=== PATIENT | female | born 1970 | race Caucasian/White ===

== ENCOUNTER 2016-03-01 18:28 | Emergency (ER) | payer BC ==
[2016-03-01 19:11] VITALS: BP 193/90
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
== END 2016-03-01 20:24 | disposition home or self-care (01) ==
LOC: ED 18:28
DX: S40.019A Contusion of unspecified shoulder, initial encounter (principal); S09.90XA Unspecified injury of head, initial encounter; V49.9XXA Car occupant (driver) (passenger) injured in unspecified traffic accident, initial encounter; Y93.9 Activity, unspecified; Y92.9 Unspecified place or not applicable; Y99.9 Unspecified external cause status
CPT/HCPCS: 99282

== ENCOUNTER 2016-04-01 17:55 | Emergency (ER) | payer BC ==
[2016-04-01 18:23] VITALS: BP 197/95
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
== END 2016-04-01 19:29 | disposition home or self-care (01) ==
LOC: ED 17:55
DX: S50.12XA Contusion of left forearm, initial encounter (principal); W18.09XA Striking against other object with subsequent fall, initial encounter; Y92.9 Unspecified place or not applicable; E11.9 Type 2 diabetes mellitus without complications; D64.9 Anemia, unspecified
CPT/HCPCS: 99282

== ENCOUNTER 2016-06-26 18:29 | Emergency (ER) | payer BC ==
[2016-06-26] MEDS ORDERED: NS 0.9% 1000 ML* 1,000 ML IV ONE (22:11)
[2016-06-26 22:20] LABS: Hematocrit 35 % (35-47); Hemoglobin 12.1 g/dl (12.0-16.0); Mean Corpuscular HGB Conc 34 g/dl (31-36); Mean Corpuscular Hemoglobin 30 pg (27-31); Mean Corpuscular Volume 87 fL (80-97); Mean Platelet Volume 9 um3 (7.4-10.4); Red Blood Count 4.06 10^6/ul (4.0-5.4); Red Cell Distribution Width 13 % (10.5-15); White Blood Count 10.2 10^3/ul (3.5-10.8)
[2016-06-26 22:34] LABS: ALT 13 U/L (7-52); AST 15 U/L (13-39); Albumin 4.2 g/dL (3.2-5.2); Alkaline Phosphatase 70 U/L (34-104); Anion Gap 8 mmol/L (2-11); BUN/Creatinine Ratio 17.9 (8-20); Blood Urea Nitrogen 12 mg/dL (6-24); CO2 Carbon Dioxide 27 mmol/L (22-32); Calcium 9.2 mg/dL (8.6-10.3); Chloride 101 mmol/L (101-111); EGFR African American 121.9 (>60); EGFR Non-African American 94.8 (>60); Glucose 118 mg/dL (70-100); Lipase 48 U/L (11.0-82.0); Potassium 3.8 mmol/L (3.5-5.0); Sodium 136 mmol/L (133-145); Total Protein 7.2 g/dL (6.4-8.9)
[2016-06-26] MEDS ORDERED: Iodixanol* (CONTRAST) 320 MG/ML 100 ML SDV IV ONE (23:40)
[2016-06-27] MEDS ORDERED: Morphine INJ* 4 MG/ML 1 ML SYRINGE IV ONE (00:51)
[2016-06-27] MEDS ORDERED: Ondansetron INJ* 2 MG/ML VIAL IV ONE (00:51)
[2016-06-27 01:09] LABS: Urine Bacteria 1+ (Absent); Urine Bilirubin Negative (Negative); Urine Glucose Negative (Negative); Urine Nitrite Negative (Negative)
[2016-06-27] MEDS ORDERED: Iodixanol 320 (CONTRAST) 100 ML SDV IV ONE (01:48)
--- NOTE | 2016-06-27 04:01 | ED ---
Jakub House Rebecca, scribed for Thierry Lemon on 06/26/16 at 2201 . Abdominal Pain/Female - HPI Summary HPI Summary: Pt is a 45 y/o F who presents to ED c/o RUQ pain. Pain began suddenly at 1630 and has been constant since onset, wavering in intensity. Pain characterized as sharp and currently ranked 7/10. Discrete to the RUQ without radiation. Sx aggravated and alleviated by nothing. Additoinally c/o N/D and mild dizziness. Denies vomiting, fever, CP, SOB. PSHx cholecystectomy in October (8 months ago ). No PSHx appy. No PMHx kidney stones. - History of Current Complaint Chief Complaint: EDAbdPain Stated Complaint: ABD AND RIB PAIN, NAUSEA Time Seen by Provider: 06/26/16 21:54 Hx Obtained From: Patient Hx Last Menstrual Period: 09/21/15 Onset/Duration: Sudden Onset, Still Present Timing: Constant Severity Initially: Moderate Severity Currently: Moderate Pain Intensity: 7 Pain Scale Used: 0-10 Numeric Location: Discrete At: RUQ Radiates: No Character: Sharp Aggravating Factor(s): Nothing Alleviating Factor(s): Nothing Associated Signs and Symptoms: Positive: Dizzy - mild, Nausea, Diarrhea, Other: - Denies SOB. Negative: Fever, Chest Pain, Vomiting Allergies/Adverse Reactions: Allergies Allergy/AdvReac Type Severity Reaction Status Date / Time Shellfish Allergy Allergy Severe Anaphylatic Verified 01/10/16 22:35 Shock PMH/Surg Hx/FS Hx/Imm Hx Endocrine/Hematology History: Reports: Hx Diabetes - DIET CONTROL, Hx Anemia - TAKES IRON Denies: Hx Thyroid Disease Cardiovascular History: Reports: Hx Hypertension - WELL CONTROLLED Denies: Hx Congestive Heart Failure, Hx Pacemaker/ICD, Other Cardiovascular Problems/Disorders Respiratory History: Denies: Hx Asthma, Hx Chronic Obstructive Pulmonary Disease (COPD), Other Respiratory Problems/Disorders GI History: Reports: Other GI Disorders - 2009-FLOATING INTERNAL HERNIA STATES WAS FIXED Denies: Hx Ulcer History: Denies: Hx Renal Disease, Other Problems/Disorders Musculoskeletal History: Reports: Hx Arthritis - LEFT SHOULDER Denies: Other Musculoskeletal History Sensory History: Reports: Hx Contacts or Glasses - WILL WEAR GLASSES DAY OF SURGERY Denies: Hx Hearing Aid Opthamlomology History: Reports: Hx Contacts or Glasses - WILL WEAR GLASSES DAY OF SURGERY Neurological History: Reports: Hx Migraine - IN THE PAST Denies: Other Neuro Impairments/Disorders Psychiatric History: Reports: Hx Anxiety - ON MEDS Denies: Hx Panic Disorder - Cancer History Hx Chemotherapy: No - Surgical History Surgery Procedure, Year, and Place: Right Index Finger 09/07/13,. 06/03 R HAND, 5TH DIGIT,. 02/01 LEFT SHOULDER BONE SPUR ,. 12/20/09 [facility],. 12/30 GASTRIC BYPASS,. 11/30 R HAND SURGERY,. 10/01 LEFT SHOULDER BONE SPUR,. 11/22 & 11-24 GANGLION CYSTS,. 2012 LEFT HAND CARPAL TUNNEL SURGERY. 10/2012, LEFT SHOULDER, [facility]. LEFT 5th finger trigger release 08/2014 Hx Anesthesia Reactions: No - Immunization History Date of Tetanus Vaccine: UTD Date of Influenza Vaccine: 2013 Infectious Disease History: Denies: Hx Clostridium Difficile, Hx Hepatitis, Hx Human Immunodeficiency Virus (HIV), Hx of Known/Suspected MRSA, Hx Shingles, Hx Tuberculosis, Hx Known/ Suspected VRE, Hx Known/Suspected VRSA, History Other Infectious Disease, Traveled Outside the [place] in Last 30 Days - Family History Known Family History: Positive: Hypertension, Diabetes, Other - ARTHRITIS; OBESITY - Social History Alcohol Use: Rare Alcohol Amount: 2-3 TIMES A YEAR Hx Substance Use: No Substance Use Type: Reports: None Hx Tobacco Use: No Smoking Status (MU): Never Smoked Tobacco Have You Smoked in the Last Year: No Review of Systems Negative: Fever Negative: Chest Pain Negative: Shortness Of Breath Positive: Abdominal Pain - RUQ, Diarrhea, Nausea. Negative: Vomiting Neurological: Other - mild dizziness All Other Systems Reviewed And Are Negative: Yes Physical Exam Triage Information Reviewed: Yes Vital Signs On Initial Exam: Initial Vitals Temp Pulse Resp BP Pulse Ox 96.3 F 102 20 186/92 100 06/26/16 18:38 06/26/16 18:38 06/26/16 18:38 06/26/16 18:38 06/26/16 18:38 Vital Signs Reviewed: Yes Appearance: Positive: Well-Appearing, No Pain Distress Skin: Positive: Warm, Skin Color Reflects Adequate Perfusion, Dry Eyes: Positive: EOMI, MIHIR Neck: Positive: Supple, Nontender Respiratory/Lung Sounds: Positive: Clear to Auscultation, Breath Sounds Present Cardiovascular: Positive: RRR, Pulses are Symmetrical in both Upper and Lower Extremities Abdomen Description: Positive: Soft. Negative: Nontender - RLQ tenderness Bowel Sounds: Positive: Present Musculoskeletal: Positive: Normal, Strength/ROM Intact Neurological: Positive: Normal, Sensory/Motor Intact, Alert, Oriented to Person Place, Time Diagnostics - Vital Signs Vital Signs Temp Pulse Resp BP Pulse Ox 06/26/16 20:00 97 F 100 18 194/99 100 06/26/16 18:38 96.3 F 102 20 186/92 100 - Laboratory Result Diagrams: 06/26/16 22:05 06/26/16 22:05 Lab Statement: Any lab studies that have been ordered have been reviewed, and results considered in the medical decision making process. - CT CT Abd/Pel CT Interpretation: No Acute Changes - No acute findings. See report. CT Interpretation Completed By: Radiologist - EKG 2300 Cardiac Rate: NL - 90 bpm EKG Rhythm: Sinus Rhythm EKG Interpretation: No acute changes Re-Evaluation - Re-Evaluation First Eval Re-Evaluation Time: 03:39 Change: Improved Comment: Pt is feeling significantly improved. Abdominal Pain Fem Course/Dx - Diagnoses Provider Diagnoses: Nonspecific abdominal pain Discharge - Discharge Plan Condition: Stable Disposition: HOME Prescriptions: Ibuprofen TAB* [Motrin TAB* 600 MG] 600 mg PO Q8H PRN #20 tab PRN Reason: Pain Patient Education Materials: Abdominal Pain (ED) Referrals: [facility] [Outside] - 3 Days The documentation as recorded by the Jakub downey Rebecca accurately reflects the service I personally performed and the decisions made by , Thierry Lemon.
[2016-06-27 04:17] VITALS: BP 135/76
--- NOTE | 2016-06-27 12:51 | RAD ---
CLINICAL HISTORY: Nausea and abdominal pain. Relevant surgical history includes "hernia", gastric bypass surgery and cholecystectomy. COMPARISON: Most recent CT of the abdomen and pelvis acquired November 04, 2015 TECHNIQUE: Contrast enhanced CT examination of the abdomen and pelvis from the lung bases through the initial tuberosities. The patient received 136 mL Visipaque 320 intravenously prior to imaging.The patient received oral contrast as well prior to imaging. FINDINGS: VISUALIZED LUNG BASES: At the supra areolar right breast there is a 1.9 cm subcutaneous soft tissue nodule (image 3) that is somewhat asymmetric to the contralateral side. On the most recent CT examination this nodule exhibiting a maximum dimension of 1.3 cm. The visualized lung bases are grossly clear. There is no pleural effusion. ABDOMEN AND PELVIS: Surgical material related to gastric bypass surgery is noted. There is no evidence of obstruction or leakage. The liver is homogenously hypodense relative to the spleen. There are no focal liver masses, intrahepatic biliary duct dilatation or surface irregularity. The spleen, pancreas and adrenal glands are grossly normal in appearance. The gallbladder is surgically absent with surgical clips in the gallbladder fossa. The kidneys are normal in appearance without focal mass, calcification or signs of hydronephrosis. The oral contrast has progressed as far as the splenic flexure of the colon. The small and large bowel are not distended. The patient's normal appendix is identified in the right lower quadrant (image [id number]). There is no gross retroperitoneal or mesenteric lymphadenopathy. The right and left ovaries measure up to 4.4 and 4 cm respectively in greatest axial dimension. Both ovaries exhibit low attenuation structures with likely septations identified. Parents within the limitations of CT imaging. The abdominal aorta and iliac arteries are normal in course and diameter. Degenerative changes include multilevel loss of intervertebral disc height involving the lower thoracic and lumbar spine.There are no sinister bone lesions. IMPRESSION: 1. There are postsurgical findings consistent with gastric bypass surgery at the patient's gastrojejunostomy. There is no CT evidence of bowel obstruction, leakage or acute inflammatory change. 2. There is a 1.9 cm right breast soft tissue nodule that appears asymmetric relative to the contralateral side. This nodule appears slightly larger from 1.3 cm measured on the November 04, 2015 CT examination. According to previous imaging available on our PACS system, the patient's most recent annual screening mammogram is dated November 20, 2014. Please correlate to physical examination and/or possible follow-up breast imaging. 3. Bilaterally the ovaries appear partially cystic and mildly enlarged. This may not be abnormal in a woman still undergoing normal menstrual activity. If clinically warranted more detailed characterization of the ovaries can be made with pelvic ultrasound. 4. There are additional chronic, degenerative and iatrogenic findings described in the body of the report.
== END 2016-06-27 04:12 | disposition home or self-care (01) ==
LOC: ED 18:29
DX: R10.11 Right upper quadrant pain (principal); R42 Dizziness and giddiness; R11.0 Nausea; R19.7 Diarrhea, unspecified
CPT/HCPCS: 36415; 74177; 80053; 81003; 81015; 83605; 83690; 84484; 84702; 85025; 85610; 85730; 87086; 93005; 99282; J2270; J2405; Q9967

== ENCOUNTER 2016-07-29 13:16 | Emergency (ER) | payer BC ==
[2016-07-29 13:31] VITALS: BP 164/94
--- NOTE | 2016-07-29 13:31 | UC ---
Hand/Wrist HPI - HPI Summary HPI Summary: hit left hand with a hammer then fell and hit hand on a metal bar---bruising on back of left hand - History Of Current Complaint Chief Complaint: UCUpperExtremity Stated Complaint: HAND INJURY Time Seen by Provider: 07/29/16 13:25 Hx Obtained From: Patient Hx Last Menstrual Period: 09/21/15 ?: No Mechanism Of Injury: crush Onset/Duration: Sudden Onset, Resolved Severity Initially: Moderate Severity Currently: Moderate Pain Intensity: 5 Pain Scale Used: 0-10 Numeric Character Of Pain: Aching, Throbbing Aggravating Factor(s): Movement Alleviating: Rest Associated Signs And Symptoms: Positive: Swelling, Bruising Related History: Dominant Hand Right - Allergies/Home Medications Allergies/Adverse Reactions: Allergies Allergy/AdvReac Type Severity Reaction Status Date / Time Shellfish Allergy Allergy Severe Anaphylatic Verified 07/29/16 13:21 Shock Home Medications: Home Medications Dulaglutide [Trulicity] 0.75 mg SC WEEKLY 07/29/16 [History Confirmed 07/29/16] PMH/Surg Hx/FS Hx/Imm Hx Previously Healthy: Yes - Surgical History Surgical History: Yes Surgery Procedure, Year, and Place: Right Index Finger 09/07/13,. 06/03 R HAND, 5TH DIGIT,. 02/01 LEFT SHOULDER BONE SPUR ,. 12/20/09 HERNIA,. 12/30 GASTRIC BYPASS,. 11/30 R HAND SURGERY,. 10/01 LEFT SHOULDER BONE SPUR,. 11/22 & 10 GANGLION CYSTS,. 2012 LEFT HAND CARPAL TUNNEL SURGERY. 10/2012, LEFT SHOULDER, [facility]. LEFT 5th finger trigger release 08/2014 - Family History Known Family History: Positive: Hypertension, Diabetes, Other - ARTHRITIS; OBESITY - Social History Occupation: Employed Full-time Lives: With Family Alcohol Use: Rare Alcohol Amount: 2-3 TIMES A YEAR Substance Use Type: None Smoking Status (MU): Never Smoked Tobacco Have You Smoked in the Last Year: No Review of Systems Constitutional: Negative Skin: Bruising - back of left hand Eyes: Negative ENT: Negative Respiratory: Negative Cardiovascular: Negative Gastrointestinal: Negative Genitourinary: Negative Motor: Negative Neurovascular: Negative Musculoskeletal: Negative Neurological: Negative Psychological: Negative All Other Systems Reviewed And Are Negative: Yes Physical Exam Triage Information Reviewed: Yes Appearance: Well-Appearing, No Pain Distress, Well-Nourished Vital Signs Reviewed: Yes Eye Exam: Normal Eyes: Positive: Conjunctiva Clear ENT Exam: Normal ENT: Positive: Normal ENT inspection, Hearing grossly normal. Negative: Nasal congestion, Nasal drainage, Trismus, Muffled/hoarse voice Dental Exam: Normal Neck exam: Normal Neck: Positive: Supple, Nontender, No Lymphadenopathy Respiratory Exam: Normal Respiratory: Positive: Chest non-tender, Lungs clear, Normal breath sounds, No respiratory distress, No accessory muscle use Cardiovascular Exam: Normal Cardiovascular: Positive: RRR, No Murmur, Pulses Normal, Brisk Capillary Refill Musculoskeletal Exam: Normal Musculoskeletal: Positive: Strength Intact, ROM Intact, Edema @ - back of left hand Neurological Exam: Normal Neurological: Positive: Alert, Muscle Tone Normal Psychological Exam: Normal Psychological: Positive: Normal Response To Family Skin Exam: Normal Diagnostics - Radiology No standard instances Xray Interpretation: No Acute Changes Radiology Interpretation Completed By: ED Physician Re-Evaluation - Re-Evaluation Second Eval Change: Improved - dara apllied-n/m/c intact before and after application Hand/Wrist Course/Dx - Course Course Of Treatment: rice, dara, ibuprofen follow with ortho, follow BP with PCP - Differential Dx/Diagnosis Differential Diagnosis/HQI/PQRI: Cellulitis, Contusion, Fracture, Sprain, Strain Provider Diagnoses: Contusion Left hand, Highblood pressure withour dx of HTN Discharge - Discharge Plan Condition: Stable Disposition: HOME Patient Education Materials: Ibuprofen (By mouth), Contusion in Adults (ED), DASH Eating Plan (ED), Hypertension (ED), Ice Pack Application (ED) Referrals: Trudy Renner MD [Primary Care Provider] - 2 Weeks Sally Barkre MD [Medical Doctor] - 5 Days
--- NOTE | 2016-07-29 14:21 | RAD ---
INDICATION: Left hand injury. TECHNIQUE: 4 views of the left hand were obtained. FINDINGS: No fracture is seen. Joint spaces appear maintained. There is foreshortening of the ulna and ulna minus variance of approximately 9 mm. IMPRESSION: NO EVIDENCE FOR FRACTURE.
== END 2016-07-29 14:09 | disposition home or self-care (01) ==
LOC: UCEAST 13:16
DX: S60.222A Contusion of left hand, initial encounter (principal); W22.8XXA Striking against or struck by other objects, initial encounter; W18.00XA Striking against unspecified object with subsequent fall, initial encounter; Y93.89 Activity, other specified; Y92.9 Unspecified place or not applicable; R03.0 Elevated blood-pressure reading, without diagnosis of hypertension; Z98.84 Bariatric surgery status; Z91.013 Allergy to seafood
CPT/HCPCS: 99212; G0463

== ENCOUNTER 2016-10-05 07:35 | Day surgery (SDC) | payer BC ==
[~2016-10-05 07:35] MED LIST: Buffered Lidocaine 0.9% SYRIN* 5 ML/SYR SYRINGE INTRADERM ONE; Sodium Citrate/Citric Acid* 15 ML UDC PO ONE
[2016-10-05] MEDS ORDERED: Sodium Citrate/Citric Acid* 15 ML UDC ONE (08:07)
[2016-10-05] MEDS ORDERED: Bupivacaine 0.25% SDV* 30 ML ONE (08:25)
[2016-10-05] MEDS ORDERED: Propofol* 10 MG/ML 20 ML BTL IV PUSH ONE (08:39)
[2016-10-05] MEDS ORDERED: Lidocaine 2% PF * 5 ML VIAL ONE (08:39)
[2016-10-05] MEDS ORDERED: fentaNYL* 50 MCG/ML 2 ML VIAL (100 MCG VIAL) ONE (08:40)
[2016-10-05] MEDS ORDERED: Midazolam* 1 MG/ML 2 ML VIAL (2 MG) ONE (08:55)
[2016-10-05 10:09] VITALS: BP 140/78
--- NOTE | 2016-10-06 02:30 | OP ---
DATE OF OPERATION: 10/05/16 - [facility] DATE OF : 68 SURGEON: Gerald Vinson MD BAR TACKER: MATTI Veliz ANESTHESIOLOGIST: Dr. Odonnell. ANESTHESIA: Local MAC. PRE-OP DIAGNOSIS: Left palm mass. POST-OP DIAGNOSIS: Left palm Dupuytren's disease. OPERATIVE PROCEDURE: Excision of Dupuytren's disease, left palm. INDICATIONS: Gricelda is a female who developed quite a symptomatic nodule/ mass in the left palm over the ring finger A1 everton area. I thought it was probably Dupuytren's nodule, but it was a little less distinct and the other possibility is a volar retinacular cyst. It was quite symptomatic and she wanted to have it excised. 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 I talked to her about the risks and benefits and the expected procedure and she wished to proceed. COMPLICATIONS: None. FINDINGS: There was actually quite a bit of disorganized hypertrophic fascia extending from the mid palm down and attaching to the A1 everton area. DESCRIPTION OF PROCEDURE: Gricelda was seen in the preoperative holding area. The correct side, site, and procedure were identified. We came back to the operating room. The arm was prepped and draped in the usual fashion. Formal time-out was performed. I exsanguinated the arm with the Esmarch and the tourniquet was inflated to 250 mmHg. I infiltrated the operative area with 0.25% plain Marcaine prior to prepping and draping. I made a V-shaped incision over the mass and a full- thickness flap was raised. It became very apparent that this was quite a bit of disorganized collagen that has grown up and starting to attach itself to the underlying dermis. I used the [place] blade and released it from the dermis. The digital nerve on the ulnar aspect was encountered and retracted with a Ragnell retractor. The disorganized tissue came down involved to the vertical septa of Legueu and Juvara. This was followed down all the way to the metacarpal bone and it was released there. I then followed the diseased tissue along radially. The digital nerve was again identified and protected, followed it down, and it again involved the septum and so this was excised. I then traced it out distally and it was coming down and attaching down right to the A1 everton. It was released off this and then followed back proximally where it extended past the level of the incision and so I extended my skin incision and followed this back another couple of centimeters until all of the deeper diseased tissue was excised. I inspected my digital nerves and they were nicely intact. I ended up may be releasing the proximal 25% or 50% of the A1 everton, but the distal A1 everton was disease free and fine and so I left that intact. Once I was satisfied that I removed all of the diseased tissue, I went ahead and irrigated out the operative area. The skin was closed with 4-0 nylon suture. Wound was dressed with Xeroform, 4x4s, sterile Webril, and an Sher bandage. Tourniquet was deflated and the hand pinked up immediately. She was taken to the recovery room in stable condition. [id number]/[facility] #: [id number] MTDD
== END 2016-10-05 10:10 | disposition home or self-care (01) ==
LOC: OREAST 07:35
PROVIDERS: ATTEND Orthopaedic Surgery Hand Surgery
DX: M72.0 Palmar fascial fibromatosis [Dupuytren] (principal); I10 Essential (primary) hypertension; E11.9 Type 2 diabetes mellitus without complications
CPT/HCPCS: 88304; A9270-GY; J2250; J2704; J3010

== ENCOUNTER 2016-12-07 19:01 | Emergency (ER) | payer BC ==
[2016-12-07 19:13] VITALS: BP 153/130
== END 2016-12-07 21:52 | disposition left against medical advice (07) ==
LOC: ED 19:01
DX: K08.89 Other specified disorders of teeth and supporting structures (principal); Z53.21 Procedure and treatment not carried out due to patient leaving prior to being seen by health care provider

== ENCOUNTER 2017-05-10 06:28 | Day surgery (SDC) | payer BC ==
[~2017-05-10 06:28] MED LIST changes: +Famotidine IV* 10 MG/ML 2 ML (20 mg) IV ONE; +Scopolamine 1.5 mg* PATCH TRANSDERM ONE; -Sodium Citrate/Citric Acid* 15 ML UDC PO ONE
[2017-05-10] MEDS ORDERED: Scopolamine 1.5 mg* PATCH ONE (06:32)
[2017-05-10] MEDS ORDERED: Famotidine IV* 10 MG/ML 2 ML (20 mg) ONE (06:32)
[2017-05-10] MEDS ORDERED: ceFAZolin 2 GM (*##) 2 GM/100 ML BAG USE CEFA2SOL IVPB ONE (06:32)
[2017-05-10] MEDS ORDERED: Bupivacaine 0.25% SDV* 30 ML ONE (07:11)
[2017-05-10] MEDS ORDERED: Midazolam* 1 MG/ML 5 ML VIAL (5 MG) ONE (07:15)
[2017-05-10] MEDS ORDERED: fentaNYL* 50 MCG/ML 2 ML VIAL (100 MCG VIAL) ONE (07:15)
[2017-05-10] MEDS ORDERED: Lidocaine 1% INJ* 10 MG/ML 30 ML SDV ONE (07:25)
[2017-05-10] MEDS ORDERED: ROPIVACAINE 5 MG/ML 30 ML BTL (0.5%) ONE (07:25)
[2017-05-10] MEDS ORDERED: DiMENhydriNATE IV* 50 MG/ML VIAL ONE (07:51)
[2017-05-10] MEDS ORDERED: Dexamethasone IV* 4 MG/ML 1 ML (4 MG) ONE (07:51)
[2017-05-10] MEDS ORDERED: Propofol* 10 MG/ML 20 ML BTL IV PUSH ONE (07:51)
[2017-05-10] MEDS ORDERED: Ketorolac INJ* 30 MG/ML 1 ML VIAL ONE (07:51)
[2017-05-10] MEDS ORDERED: Lidocaine 2% PF * 5 ML VIAL ONE (07:51)
[2017-05-10] MEDS ORDERED: Ondansetron INJ* 2 MG/ML VIAL ONE (07:51)
[2017-05-10 09:33] VITALS: BP 119/98
[2017-05-10] MEDS ORDERED: DiMENhydriNATE IV* 50 MG/ML VIAL IV PUSH PRN (10:09)
[2017-05-10] MEDS ORDERED: oxyCODONE TAB* 5 MG TAB PO PRN (10:09)
[2017-05-10] MEDS ORDERED: Acetaminophen TAB* 325 MG PO PRN (10:09)
[2017-05-10] MEDS ORDERED: Naloxone* 0.4 MG/ML 1 ML VIAL IV PRN (10:09)
--- NOTE | 2017-05-11 10:07 | OP ---
CC: PCP, Dr. Renner * DATE OF OPERATION: 05/10/17 - [facility] DATE OF : 68 SURGEON: Diego Hill MD. LOAN AUDITOR: MATTI Saez. An res habilitation assistant was needed for the entirety of the case to help with positioning, retraction and was utilized throughout all portions of the case. ANESTHESIOLOGIST: Dr. William. ANESTHESIA: General interscalene block. PRE-OP DIAGNOSIS: Left shoulder impingement with biceps tendonitis. POST-OP DIAGNOSIS: Left shoulder partial thickness rotator cuff tear of the supraspinatus tendon with bursal and articular sided tearing, biceps tendonitis and tendinopathy as well as residual impingement. OPERATIVE PROCEDURE: Left shoulder arthroscopy with, 1. Extensive glenohumeral debridement including biceps tenotomy. 2. Revision to subacromial decompression with acromioplasty. 3. Rotator cuff repair of the supraspinatus in double row fashion. COMPLICATIONS: None. ESTIMATED BLOOD LOSS: Minimal. INDICATION: Gricelda Alvares is a 46-year-old female who has had multiple surgeries of her left shoulder. She had several impingement related surgeries and has had no relief with the symptoms. Risks and benefits of surgery were discussed at length and included, but not limited to bleeding, infection, damage to nerves, vessels, surrounding structures, wound nonhealing, persistent pain, need for further surgery, incomplete relief of symptoms, risks of anesthesia, persistent pain. She has elected to proceed with surgical treatment. DESCRIPTION OF PROCEDURE: The patient was greeted in the preoperative area by the attending surgeon. Correct extremity was marked and the consent was confirmed. She underwent interscalene nerve block by anesthesiologist after which she was brought back into the operating suite. She was placed in supine position on operating table. She then underwent general anesthesia and LMA intubation, after which she was appropriately positioned on the right lateral decubitus position and axillary roll. She was secured with a peg board, the shoulder was draped unsterile with 10-pounds traction. The left shoulder was then prepped and draped in usual sterile fashion beginning with chlorhexidine soap, scrub, and alcohol wipe and a final prep with ChloraPrep. After appropriate surgical pause indicating site, side, procedure and administration of antibiotics, the standard posterolateral portal was made sharply with an 11-blade. The scope was introduced into the joint. The joint was examined. The scope was brought into the joint. The joint was examined. There was evidence of synovitis present. The anteroposterior superior labrum had fraying. The anterior port was made in outside-in fashion. The shaver was used to debride back the anterior, posterior, superior labrum. There is evidence of biceps tearing at the insertion to the superior labrum and partial tearing of the subscap. The shaver was used to debride the anteroposterior superior labrum as well as the undersurface of the subscap. After preoperative discussion with the patient, the choice was made to do a tenotomy. The biceps was then tenotomized using the ria. The inferior recess was intact. There were grade 0 to 1 changes of the glenohumeral joint. The undersurface of the supraspinatus had partial thickness tearing and it appeared to be about 20%. The thought was that if she had no tearing on the bursal side, we would treat this conservatively. The scope was removed once the debridement was complete and attention was directed to subacromial space. The scope was positioned in subacromial space and the bursa was present. There was evidence of a previous bursectomy, but there was still irregular edges to the acromion. The shaver was used to debride back the bursa. There was evidence of partial tearing of the bursal side. This was addressed later. The undersurface of the acromion was then skeletonized with electrocautery device and a small revision acromioplasty was done using a 4-0 oval ulisses. Attention was directed to the rotator cuff. The cuff was probed and in one portion there was partial thickness tearing. This corresponded to the same area of the articular side of tearing. Decision was made to repair this. Therefore the 11-blade was used to take down the repair to complete the tear and then the shaver and electrocautery device were used to debride the edges of the tendon back. Once this was complete, attention was directed to the greater tuberosity, which was then skeletonized and debrided using the rasp and then ulisses to gently decorticate and allow for better healing. After this was done, through a separate stab incision a one 4.75 Healicoil was placed at the medial row. The sutures were passed through the tendon in a horizontal mattress configuration. They were then tied down and attached and passed through a second anchor for a lateral row fixation. The wounds were copiously irrigated with sterile saline. Final images were obtained. The rotator cuff was appropriately repaired. The wounds were copiously irrigated. The portals were closed with 3-0 nylon. Sterile dressing were applied, a Cryo/Cuff and UltraSling were applied. She was awoken from anesthesia and transferred to PACU in stable condition. POSTOPERATIVE PLAN: She will be nonweightbearing. She will be in the sling for 6 weeks. She will start physical therapy at 4 weeks. She will be discharged on pain medications, antibiotics due to her multiple surgeries. I will see the patient back in 2 weeks. DVT prophylaxis was considered, but deferred due to no previous personal or family history. [id number]/[facility] #: [id number] MTDD
== END 2017-05-10 09:57 | disposition home or self-care (01) ==
LOC: OREAST 06:28
PROVIDERS: ATTEND Orthopaedic Surgery
DX: M75.42 Impingement syndrome of left shoulder (principal); S46.102A Unspecified injury of muscle, fascia and tendon of long head of biceps, left arm, initial encounter; M25.512 Pain in left shoulder; M54.12 Radiculopathy, cervical region; M75.22 Bicipital tendinitis, left shoulder; I10 Essential (primary) hypertension; E11.9 Type 2 diabetes mellitus without complications; Z91.013 Allergy to seafood
CPT/HCPCS: 81025; A9270-GY; C1713; J1100; J1240; J1885; J2250; J2405; J2704; J2795; J3010

== ENCOUNTER 2017-05-29 09:35 | Emergency (ER) | payer BC ==
--- OUTSIDE RECORDS SUMMARY | 2017-05-29 09:41 | XMS REPORT ---
:1970 External Reference #:[id number] Author Organization [facility] [employer] Address [address] [address] Phone [phone] Care Team Providers Name Role Phone Trudy Renner MD Primary Care Physician Unavailable Payers Type Date Identification Numbers Payment Provider Subscriber Commercial Effective: Policy Number: HERNANDEZ Dean Catarino Holley 2012 [id number] PayID: [id number] [address] [address] [place] [address] Medigap Part B Effective: Policy Number: Meño Ye Catarino Holley 2010 [id number] Ppo Expires: 2012 PayID: [id number] [address] [address] [place] [address] Problems Date Description Provider Status Onset: 03/09/2017 Disorder of shoulder Diego Hill MD Active Onset: 03/09/2017 Shoulder joint pain Diego Hill MD Active Onset: 04/06/2017 Brachial neuritis Diego Hill MD Active Onset: 04/29/2017 Injury of shoulder region Diego Hill MD Active Family History Date Family Member(s) Problem(s) Comments General CAD father General hypertension father General skin cancer General Diabetes Social History Type Date Description Comments Lives With Alone 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 ETOH Use Rarely consumes alcohol Smoking denies smoking Smoking Patient has never smoked Exercise Type/Frequency Exercises regularly Allergies, Adverse Reactions, Alerts Date Description Reaction Status Severity Comments 09/26/2012 Shellfish-derived Products active 09/26/2012 Carver active Medications Medication Date Status Form Strength Qnty SIG Indications Ordering Provider Cephalexin 05/21 Active Tablets 500mg 20tabs take 1 by mouth four Yaseen, times a MD day x 5 days Acetaminophen-Co 05/12 Active Tablets 300-30mg 30tabs 1 - 2 tabs Diego buenoine # by mouth Yaseen, every 4-6 MD hours as needed pain Ondansetron 05/11 Active Tablets 8mg 30tabs take 1 Dispers every 8 Yaseen, hours as MD needed nausea Oxycodone-Acetam 05/10 Active Tablets 5-325mg 30tabs 1-2 tabs Diego ino by mouth Yaseen, every 4-6 MD hours as needed for pain Lisinopril Active Tablets 10mg 1 by mouth Unknown / every day Lexapro Active Tablets 10mg 1 by mouth Unknown every day Multivitamin Active Tablets Unknown Trulicity Active Solution 0.75mg/0. inject Unknown Pen-Injec 5ML 0.75mg t once a week Ibuprofen Active prn Unknown /0000 Cephalexin 05/10 Hx Tablets 500mg 12tabs take 1 by mouth four Yaseen, - times a MD 05/13 day x days Tramadol 10/05 Hx Tablets 37.5-325m 30tabs 1-2 tab by Gerald Arellano/ g mouth Vinson, etaminophen - every 4-6 MD 30 hours needed Carver 10/13 Hx Tablets 5-325mg 30tabs 1-2 by Gerald mouth Glen, - every 4 to M.D. 10/13 6 hours needed Keflex 10/13 Hx Capsules 500mg 40caps 1 tab by Sydney mouth four Fry-Yo - times a Rubén natarajan Carver 10/13 Hx Tablets 5-325mg 30tabs 1-2 by Brian mouth Shaunna, - every 6 M.D. 04/12 hours needed Zofran Odt 10/11 Hx Tablets 4mg 40tabs every 6 Sydney Dispers hours as Lisandra-Yo - needed Rubén natarajan 02/20 Acetaminophen-Co 09/19 Hx Tablets 300-30mg 20tabs 1 three Brian deine #3 times a Shaunna, - day as M.D. 02/20 needed for pain Percocet 09/11 Hx Tablets 5-325mg 40tabs 1-2 by Sydney mouth Fry-Yo - every 4 to rosa isela, M.D. 09/28 6 hours needed pain Augmentin 09/11 Hx Tablets 500-125mg 20tabs 1 by mouth Sydney twice a Fry-Yo - day rosa isela, M.D. 10/09 Carver 06/27 Hx Tablets 5-325mg 20tabs take 1 tab [place] by mouth Fry-Yo - 4-6 times rosa isela, M.D. 09/10 a day needed pain Tramadol HCL 04/25 Hx Tablets 50mg 30tabs 1 tab po q Neno hs Abdon, - M.D. 05/26 Cyclobenzaprine 02/21 Hx Tablets 10mg 42tabs 1 tab tid Neno HCL Abdon, - M.D. 02/22 Codeine/Acetamin 01/06 Hx Tablets 300-30mg 60tabs 1 to 2 tid Neno oph as needed Abdon, - for pain M.D. 09/19 Carver 11/09 Hx Tablets 5-325mg 60tabs take 1-2 tab po Abdon, - every 4-6 M.D. 11/09 hours needed for pain Carver 11/09 Hx Tablets 5-325mg 45tabs take 1 tab po tid prn Abdon, - pain M.D. 01/30 Percocet 11/03 Hx Tablets 5-325mg 60tabs take 1-2 Neno /2012 tabs po Abdon, - q4-6 hours M.D. 05/31 prn pain Voltaren 08/26 Hx Gel 1% Lrgtube apply 2 grams Abdon, - topically M.D. 01/30 times a day Tramadol HCL 08/08 Hx Tablets 50mg 90tabs 1 tab po Neno tid prn Abdon, - pain M.D. 01/30 Carver 04/28 Hx Tablets 5-325mg 30tabs take 1-2 tab po tid Lisandra-Taco - prn pain Rubén natarajan 01/30 Tramadol HCL 03/30 Hx Tablets 50mg 50tabs 1 po q 4 hr prn Chandrika Coppola.DRox 05/31 Lyrica 12/09 Hx Capsules 100mg 90caps 1 tab per day for 3 Young, - days, then M.D. 05/31 2 tabs day for 3 days, then 3 tabs per day Carisoprodol 12/02 Hx Tablets 250mg 15tabs 1 tab by mouth Abdon, - three M.DRox 01/30 times a day prn pain Flexeril 11/23 Hx Tablets 5mg 60tabs 1 tab po bid prn Abdon - muscle M.DRox 12/02 spasm Carver 11/22 Hx Tablets 5-325mg 40tabs 1-2 po q4h prn pain Lisandra-Taco - Rubén natarajan 01/30 Percocet 06/23 Hx Tablets 5-325mg 30tabs 1-2 po q 4-6 hr prn Abdon - pain AyseDRox 01/30 Zofran Odt 06/12 Hx Tablets 4mg 28tabs take 1 tab Dispers po q6 Lisandra-Yo - hours prn Rubén natarajan 01/30 nausea Cephalexin Hx Tablets 500mg 21tabs one three Unknown /0000 times - daily for 10/09 Sulfamethoxazole Hx Unknown -Trimethoprim /0000 - 10/09 Medications Administered in Office Medication Date Status Form Strength Qnty SIG Indications Ordering Provider Triamcinolone 03/09/ Administered Injection Zaneb (Kenalog) 2017 MD Liz Celestone 3 mg 05/31/ Administered Injection Sydney and 3mg 2013 Molly rivas M.D. Depomedrol 80MG 08/26/ Administered Injection Neno 2012 Rubén Coppola Celestone 3 mg 06/06/ Administered Injection Sydney and 3mg 2012 Molly rivas M.D. Celestone 3 mg 06/06/ Administered Injection [place] and 3mg 2012 Molly rivas M.D. Depomedrol 80MG 12/02/ Administered Injection Neno 2011 Rubén Coppola Vital Signs Date Vital Result Comment 05/21/2017 Height 68 inches 5'8" Weight 233.00 lb BP Systolic 134 mmHg BP Diastolic 78 mmHg Respiratory Rate 18 /min Body Temperature 97.9 F Pain Level 3 BMI (Body Mass Index) 35.4 kg/m2 05/20/2017 Height 68 inches 5'8" Weight 233.00 lb Heart Rate 80 /min BP Systolic Sitting 124 mmHg BP Diastolic Sitting 86 mmHg Respiratory Rate 16 /min Pain Level 2 BMI (Body Mass Index) 35.4 kg/m2 04/29/2017 Height 68 inches 5'8" Weight 233.00 lb BP Systolic 128 mmHg BP Diastolic 82 mmHg Respiratory Rate 18 /min Pain Level 9 BMI (Body Mass Index) 35.4 kg/m2 04/06/2017 Height 68 inches 5'8" Heart Rate 69 /min BP Systolic 140 mmHg BP Diastolic 78 mmHg Respiratory Rate 20 /min Body Temperature 98.0 F Pain Level 7 03/09/2017 Height 68 inches 5'8" Weight 233.00 lb w/ shoes Heart Rate 80 /min reg Respiratory Rate 16 /min Pain Level 9 left shoulder BMI (Body Mass Index) 35.4 kg/m2 10/16/2016 Height 68 inches 5'8" Weight 230.00 lb Heart Rate 99 /min Respiratory Rate 17 /min Body Temperature 98.1 F Pain Level 1 BMI (Body Mass Index) 35.0 kg/m2 09/30/2016 Height 68 inches 5'8" Weight 230.00 lb Respiratory Rate 18 /min Pain Level 8 BMI (Body Mass Index) 35.0 kg/m2 04/19/2015 Height 68 inches 5'8" Weight 230.00 lb Body Temperature 98.4 F BMI (Body Mass Index) 35.0 kg/m2 04/15/2015 Height 68 inches 5'8" Weight 230.00 lb Body Temperature 98.5 F Pain Level 2 BMI (Body Mass Index) 35.0 kg/m2 04/03/2015 Height 68 inches 5'8" Weight 230.00 lb Heart Rate 68 /min BP Systolic Sitting 142 mmHg BP Diastolic Sitting 92 mmHg Respiratory Rate 16 /min Pain Level 8 BMI (Body Mass Index) 35.0 kg/m2 06/21/2014 Height 68 inches 5'8" Weight 230.00 lb Heart Rate 89 /min BP Systolic 126 mmHg BP Diastolic 91 mmHg Pain Level 8 BMI (Body Mass Index) 35.0 kg/m2 11/15/2013 Height 68 inches 5'8" Weight 225.00 lb Pain Level 6 BMI (Body Mass Index) 34.2 kg/m2 10/30/2013 Height 68 inches 5'8" Weight 225.00 lb Pain Level 8 BMI (Body Mass Index) 34.2 kg/m2 10/13/2013 Height 68 inches 5'8" Weight 225.00 lb Body Temperature 98.7 F BMI (Body Mass Index) 34.2 kg/m2 10/10/2013 Height 68 inches 5'8" Weight 230.00 lb Body Temperature 98.7 F BMI (Body Mass Index) 35.0 kg/m2 09/26/2013 Height 68 inches 5'8" Weight 230.00 lb Body Temperature 98.0 F BMI (Body Mass Index) 35.0 kg/m2 09/18/2013 Height 68 inches 5'8" Weight 230.00 lb Pain Level 5 BMI (Body Mass Index) 35.0 kg/m2 09/11/2013 Height 68 inches 5'8" Heart Rate 92 /min BP Systolic 146 mmHg BP Diastolic 98 mmHg Body Temperature 98.5 F 09/04/2013 Height 68 inches 5'8" Weight 230.00 lb Heart Rate 99 /min BP Systolic 152 mmHg BP Diastolic 94 mmHg BMI (Body Mass Index) 35.0 kg/m2 07/24/2013 Height 68 inches 5'8" Weight 230.00 lb Heart Rate 84 /min BMI (Body Mass Index) 35.0 kg/m2 07/03/2013 Height 68 inches 5'8" Weight 230.00 lb Heart Rate 88 /min BP Systolic 150 mmHg BP Diastolic 90 mmHg BMI (Body Mass Index) 35.0 kg/m2 05/31/2013 Height 68 inches 5'8" Weight 225.00 lb Heart Rate 87 /min BP Systolic 165 mmHg BP Diastolic 93 mmHg BMI (Body Mass Index) 34.2 kg/m2 04/25/2013 Height 68 inches 5'8" Weight 215.00 lb Heart Rate 80 /min BMI (Body Mass Index) 32.7 kg/m2 09/26/2012 Height 68 inches 5'8" Weight 215.00 lb Heart Rate 85 /min BP Systolic 136 mmHg BP Diastolic 91 mmHg BMI (Body Mass Index) 32.7 kg/m2 Results Test Date Test Result H/L Range Note Laboratory test 05/10/2017 Point of Care 117 mg/dL High 70-100 1 finding Glucose Laboratory test 10/05/2016 Surgical Pathology SEE RESULT BELOW 2, 3 finding Laboratory test 10/05/2016 Point of Care 119 mg/dL High 70-100 4 finding Glucose Laboratory test 04/09/2015 Surgical Pathology SEE RESULT BELOW 5 finding Laboratory test 04/09/2015 (HCG) Negative Negative 6 finding Urine Oncology CBC Auto 12/08/2012 White Blood Count 6.5 10^3/uL 4.8-10.8 Diff Red Blood Count 4.03 10^6/uL 4.0-5.4 Hemoglobin 11.2 g/dL Low 12.0-16.0 Hematocrit 36 % 35-47 Mean Corpuscular Volume 88 fL 80-97 Mean Corpuscular Hemoglobin 28 pg 27-31 Mean Corpuscular HGB Conc 32 g/dL 31-36 Red Cell Distribution Width 14 % 10.5-15 Platelet Count 332 10^3/uL 150-450 Mean Platelet Volume 9 um3 7.4-10.4 Abs Neutrophils 4.6 10^3/uL 1.5-7.7 Abs Lymphocytes 1.3 10^3/uL 1.0-4.8 Abs Monocytes 0.4 10^3/uL 0-0.8 Abs Eosinophils 0.1 10^3/uL 0-0.6 Abs Basophils 0.1 10^3/uL 0-0.2 Granulocyte % 70.6 % 38-83 Lymphocyte % 20.3 % Low 25-47 Monocyte % 6.8 % 1-9 Eosinophil % 1.4 % 0-6 Basophil % 0.9 % 0-2 Comp Metabolic Panel 12/08/2012 Sodium 137 mmol/L 133-145 Potassium 4.0 mmol/L 3.5-5.0 Chloride 106 mmol/L 101-111 Co2 Carbon Dioxide 23.0 mmol/L 22-32 Anion Gap 8.0 mmol/L 2-11 Glucose 126 mg/dL High 70-100 Blood Urea Nitrogen 17 mg/dL 6-24 Creatinine 0.70 mg/dL 0.50-1.40 BUN/Creatinine Ratio 24.3 High 8-20 Calcium 9.1 mg/dL 8.1-9.9 Total Protein 7.4 g/dL 6.2-8.1 Albumin 4.2 g/dL 3.6-5.4 Globulin 3.2 g/dL 2-4 Albumin/Globulin Ratio 1.3 1-3 Total Bilirubin 0.4 mg/dL 0.4-1.5 Alkaline Phosphatase 89 U/L 30-110 Alt 19 U/L 14-54 Ast 23 U/L 12-42 Egfr Non- 91.3 >60 Egfr 117.5 >60 7 Iron & Iron Binding Capacity 12/08/2012 Iron 43 g/dL 28-170 Unsaturated Iron Binding 438 g/dL Total Iron Binding Capacity 481 g/dL High 250-450 % Iron Saturation 9 % Low 15-55 Laboratory test 12/08/2012 Ferritin < 10 ng/mL Low 11-307 finding Jak2 Mutation 12/08/2012 Jak2 V617F Mutation See Comment 8 Analysis Blood Detection Surgical Pathology 11/09/2012 S RUN DATE: <SEE NOTE> Laboratory test 11/09/2012 Urine Negative Negative 10 finding 1 Security Shift 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 PRE-OPERATIVE DIAGNOSIS Left palm mass GROSS DESCRIPTION The specimen is received in formalin labeled, Left Palm Mass, and consists of a 1.3 x 1.1 by up to 0.4 cm puentes-white irregular rubbery fibrous tissue fragment with a small amount of adherent yellow fat. The specimen is serially sectioned and entirely submitted in one cassette. Signed (signature on file) Selena Trujillo MD 1521 END OF REPORT * ML=Testing performed at Main Lab DEPARTMENT OF PATHOLOGY, [address] [place] [address] Emeterio Benavides M.D. Director [facility] # [id number] 4 Security Shift Supervisor: [id number] SEE RESULT BELOW Name: CATARINO HOLLEY : [address]: Chai Pierce MD Acct: [id number] Unit: [id number] AGE: 44 Location: OR Re04/09/15 SEX: F Status: REG [facility] SPEC: [id number] JOVAN: 04/09/15- SUBM DR: Chai Pierce MD REQ: [id number] RECD: 04/09/15 STATUS: SOUT _ ORDERED: LEVEL III FINAL DIAGNOSIS Skin, right middle finger, excision: -- Digital mucous cyst, excised. PRE-OPERATIVE DIAGNOSIS Other bursal cyst GROSS DESCRIPTION The specimen is received in formalin labeled, Cyst Right Middle Finger, and consists of a 0.9 x 0.6 x 0.3 cm priest-white irregular previously disrupted skin fragment. The specimen is inked, trisected and submitted entirely in one cassette. Signed (signature on file) Selena Trujillo MD 1250 END OF REPORT * ML=Testing performed at Main Lab DEPARTMENT OF PATHOLOGY, [address] [place] [address] Emeterio Benavides M.D. Director [facility] # [id number] 6 If is still suspected, please repeat test after 48 to 72 hours. This test detects intact HCG only and is indicated for the early detection of . 7 Because ethnic data is not always readily available, this report includes an eGFR for both -Americans and non- Americans. The National Kidney Disease Education Program (NKDEP) does not endorse the use of the MDRD equation for patients that are not between the ages of 18 and 70, are , have extremes of body size, muscle mass, or nutritional status, or are non- or non-. According to the National Kidney Foundation, irrespective of diagnosis, the stage of the disease is based on the level of kidney function: Stage Description GFR(mL/min/1.73 m(2)) 1 Kidney damage with normal or decreased GFR 90 2 Kidney damage with mild decrease in GFR 60-89 3 Moderate decrease in GFR 30-59 4 Severe decrease in GFR 15-29 5 Kidney failure <15 (or dialysis) 8 Peripheral blood, JAK2 V617F mutation analysis: Negative for JAK2 V617F. Signing Pathologist: Cristal Mcneal M.D. Method summary - JAK2 V617F analysis: Quantitative, allele-specific polymerase chain reaction (PCR) assay was performed using extracted genomic DNA to evaluate for the point mutation causing JAK2 V617F (see [facility] [employer] Interpretive Handbook for method details). Laboratory developed test. Test Performed by: [place] [address] [employer] Operator: Simone Cain III, M.D. 9 RUN DATE: 11/25/12 [facility] LAB LIVE PAGE 1 RUN TIME: [address] [place] [address] Specimen Inquiry Name: CATARINO HOLLEY : [address]: Neno Coppola MD Acct: [id number] Unit: [id number] AGE: 42 Location: OR Re11/09/12 SEX: F Status: REG [facility] SPEC: [id number] JOVAN: 11/09/12- SUBM DR: Neno Coppola MD REQ: [id number] RECD: 11/09/124 STATUS: SOUT _ ORDERED: Decal, LEVEL III FINAL DIAGNOSIS Left distal clavicle, excision: Bone with slightly hypercellular bone marrow (75%); see comment. COMMENT: Sections show bone with slightly increased bone marrow cellularity. Assessment of the hematopoetic elements in the bone marrow is markedly limited due to artifact produced from the decalcification process. Although elements of trilineage hematopoiesis are appreciated, it cannot be determined from the sampled tissue if abnormal elements are present. The pathologic suspicion for an infiltrative process involving the bone marrow is very low; however, given the slightly increased cellularity and inability to clearly examine the hematopoietic elements distorted by the decalcification process, clinical follow-up with hematology may be prudent in order to definitively exclude an infiltrative process. These findings were communicated with Dr. Coppola on 11/25/12. PRE-OPERATIVE DIAGNOSIS Left shoulder impingement syndrome. GROSS DESCRIPTION The specimen is received in formalin labeled Catarino Holley, Left Distal Clavicle and consists of a 2.0 x 0.8 x 0.4 cm. portion of bone. Concrete Rod Buster one cassette after decalcification. CONTINUED ON NEXT PAGE * ML=Testing performed at Main Lab DEPARTMENT OF PATHOLOGY, [facility] [place], [place] [address] Emeterio Benavides M.D. Director [facility] Permit #[id number] RUN DATE: 11/25/12 [facility] LAB LIVE PAGE 2 RUN TIME: [address] [facility] [address] [place], [place] [address] Specimen Inquiry Patient: CATARINO HOLLEY [id number] (Continued) GROSS DESCRIPTION (Continued) GROSS DESCRIPTION (Continued) MICROSCOPIC DESCRIPTION Signed (signature on file) Selena Trujillo MD 06/04 1126 END OF REPORT * ML=Testing performed at Main Lab DEPARTMENT OF PATHOLOGY, [address] [place] [address] Emeterio Benavides M.D. Director [facility] Permit #[id number] 10 If is still suspected, please repeat test after 48 to 72 hours. This test detects intact HCG only and is indicated for the early detection of . Procedures Date CPT Code Description Status Comment 05/10/2017 76867 Arthroscopy Shoulder,W/Rotator Cuff Repair Completed 05/10/2017 49963 Arthroscopy Shoulder,W/Rotator Cuff Repair Completed 05/10/2017 15396 Arthroscopy,Shoulder Decompression Of Completed Subacromial Space W/Acromio 05/10/2017 79227 Arthroscopy,Shoulder Decompression Of Completed Subacromial Space W/Acromio 05/10/2017 93565 Arthroscopy Shoulder Debridement Extensive Completed 05/10/2017 26260 Arthroscopy Shoulder Debridement Extensive Completed 03/09/2017 89637 Inject/Drain Joint/Bursa Major Completed 10/05/2016 08340 Fasciectomy Palmar Only Tissue Rearrage Or Skin Completed Grafting 10/05/2016 98132 Fasciectomy Palmar Only Tissue Rearrage Or Skin Completed Grafting 04/09/2015 72340 Excision Tendon Sheath Ganglion /Or Joint Completed Capsule Hand Or Finger 11/15/2013 37989 Rad Exam; Fingers Completed 10/30/2013 66374 Rad Exam; Fingers Completed 10/13/2013 09858 Rad Exam; Fingers Completed 09/18/2013 46641 Rad Exam; Fingers Completed 09/07/2013 79721 Arthrodesis IP JT W/Wo Fixation Completed 09/07/2013 18053 Arthrodesis IP JT W/Wo Fixation Completed 07/14/2013 43988 Trigger Finger Release Incision / Tendon Sheath Completed Incision 07/14/2013 82497 Trigger Finger Release Incision / Tendon Sheath Completed Incision 05/31/2013 84887 Rad Exam; Fingers Completed 05/31/2013 94778 Rad Exam; Fingers Completed 05/31/201385064 Injection, Carpal Tunnel Completed 02/21/2013 14568 Rad Exam; Clavicle Comp Completed 11/09/2012 94975 claviculectomy;partial Completed 11/09/2012 78936 claviculectomy;partial Completed 10/04/2012 33412 Carpal Tunnel Release Completed 10/04/2012 09993 Carpal Tunnel Release Completed 08/26/201225741 Inject/Drain Joint/Bursa Major Completed 08/26/2012 76663 Inject/Drain Joint/Bursa Intermediate Completed 07/29/2012 39478 Rad Exam; Foot Comp Completed 07/28/2012 55003 Rad Shoulder Comp, Min. 2 Views Completed 06/06/2012 26043 FX Treatment Closed Phalanx Other Than Great Completed 24 Toe W/O Manip 06/06/201243373 Injection, Carpal Tunnel Completed 02/03/2012 93176 Arthroscopy Shoulder Debridement Limited Completed 02/03/2012 26077 Arthroscopy Shoulder Debridement Limited Completed 02/03/2012 90595 claviculectomy;partial Completed 02/03/2012 38149 claviculectomy;partial Completed 12/22/2011 11345 Carpal Tunnel Release Completed 12/22/2011 79768 Carpal Tunnel Release Completed 12/03/2011 64745 Inject Tendon Sheath Or Ligament Aponeurosis Eg Completed Plantar Fascia 09/09/2011 23646 Rad Exam; Fingers Completed 08/10/2011 40164 Rad Exam; Fingers Completed 07/13/2011 51176 Rad Exam; Fingers Completed 06/24/2011 81585 Rad Exam; Fingers Completed 06/12/2011 14706 Arthrodesis IP JT W/Wo Fixation Completed 06/12/2011 40111 Arthrodesis IP JT W/Wo Fixation Completed 04/28/2011 44737 Rad Exam; Fingers Completed 04/28/2011 95922 Rad Exam; Hand Comp Completed 04/28/2011 14933 Rad Exam; Hand Comp Completed Encounters Type Date Location Provider CPT E/M Dx Office Visit 04/29/2017 1:45p [facility] [place] [address] M75.42 [facility] S46.102A M25.512 M54.12 Office Visit 04/06/2017 3:00p [facility] [place] [address] M75.42 C[facility] M25.512 M54.12 Office Visit 03/09/2017 3:00p [facility] [place] [address] M75.42 [facility] M25.512 Office Visit 09/30/2016 1:15p [facility] [place] [address] R22.32 [facility] Office Visit 04/03/2015 9:30a [facility] Chai Pierce M.D. 77350 M71.349 [facility] M71.341 Office Visit 06/21/2014 9:30a [facility] Neno Coppola M.D. 97563 726.11 C[facility] Office Visit 05/31/2013 8:15a [facility] [place] 51891 354.0 C.M.ARox Otto M.D. 727.03 715.34 Office Visit 04/25/2013 9:45a [facility] Coppola M.D. 29179 728.85 C.M[facility]. Office Visit 02/21/2013 2:15p [facility] Coppola M.D. 75304 728.85 C.M[facility]A. Office Visit 10/18/2012 1:30p [facility] Coppola M.D. 96601 726.19 C.M[facility]. Office Visit 10/07/2012 1:00p [facility] Lakeisha Singh [facility] 70459 840.0 C.M.A. Office Visit 07/29/2012 1:45p [facility] [place] 95028 826.0 C.M.ARox [place] Office Visit 07/28/2012 9:30a [facility] Coppola M.D. 14770 840.0 C.M.A. Office Visit 06/06/2012 8:30a [facility] [place] 22159 354.0 C.M.ARox Otto M.D. 826.0 Office Visit 12/25/2011 8:15a [facility] Coppola M.D. 26000 719.41 C.M.A. Office Visit 12/10/2011 4:15p [facility] Coppola M.D. 14077 719.41 C.M.A. Office Visit 12/03/2011 4:30p [facility] Coppola M.D. 95131 723.4 C.M.A. 726.12 719.41 Office Visit 11/24/2011 8:00a [facility] Coppola M.D. 46417 723.4 C.M.A. Office Visit 11/23/2011 11:00a [facility] [place] 09911 354.0 C.M.Vijaya Otto M.D. Office Visit 06/03/2011 8:00a [facility] [place] 03296 715.94 Kati.Joselin Otto M.D. Office Visit 04/28/2011 10:15a [facility] [place] 59961 727.41 C.M.Vijaya Otto M.D. Plan of Care Future Appointment(s):05/25/2017 1:45 pm - [facility] MD at [facility]06/22/2017 2:30 pm - [facility] MD at [facility]
--- OUTSIDE RECORDS SUMMARY | 2017-05-29 09:42 | XMS REPORT ---
:1970 External Reference #:[id number] Author Organization [facility] Address [address] [address] Phone [phone] Care Team Providers Name Role Phone Trudy Renner MD Primary Care Physician Unavailable Payers Type Date Identification Numbers Payment Provider Subscriber Commercial Effective: Policy Number: HERNANDEZ Dean Catarino Holley 2012 [id number] PayID: [id number] [address] [address] [place] [address] Medigap Part B Effective: Policy Number: Meño Ye Catarino Holley 2010 [id number] Ppo Expires: 2012 PayID: [id number] [address] [address] [place] [address] Problems Date Description Provider Status Onset: 03/09/2017 [...] Date Description Comments Lives With Alone 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 ETOH Use Rarely consumes alcohol Smoking denies smoking Smoking Patient has never smoked Exercise Type/Frequency Exercises regularly Allergies, Adverse Reactions, Alerts Date Description Reaction Status Severity Comments 09/26/2012 Shellfish-derived Products active 09/26/2012 Tracy active Medications Medication Date Status Form Strength Qnty SIG Indications Ordering Provider Acetaminophen-Co 05/12 Active Tablets 300-30mg 30tabs 1 - 2 tabs Diego valladares # by mouth Yaseen, every 4-6 MD hours as needed pain Ondansetron 05/11 Active Tablets 8mg 30tabs take 1 Dispers every 8 Yaseen, hours as MD needed nausea Oxycodone-Acetam 05/10 Active Tablets 5-325mg 30tabs 1-2 tabs by mouth Yaseen, every 4-6 MD hours as needed for pain Lisinopril Active Tablets 10mg 1 by mouth Unknown every day Lexapro Active Tablets 10mg 1 by mouth every day Multivitamin Active Tablets Unknown Trulicity Active Solution 0.75mg/0. inject Pen-Injec 5ML 0.75mg t once a week Ibuprofen Active prn Cephalexin 05/10 Hx Tablets 500mg 12tabs take 1 by mouth lorraine Hill, - times a 05/13 day x days Tramadol 10/05 Hx Tablets 37.5-325m 30tabs 1-2 tab by Gerald Arellano/Mikhail g mouth Vinson, etaminophen - every 4-6 MD 02/20 hours needed Tracy 10/13 Hx Tablets 5-325mg 30tabs 1-2 by Gerald Anita mouth Glen, - every 4 to M.D. 10/13 6 hours needed Keflex 10/13 Hx Capsules 500mg 40caps 1 tab by Sydney mouth lorraine Rubi - times a rosa isela M.DRox Tracy 10/13 Hx Tablets 5-325mg 30tabs 1-2 by Brian mouth Shaunna, - every 6 M.D. 04/12 hours needed Zofran Odt 10/11 Hx Tablets 4mg 40tabs every 6 Sydney Dispers hours as Lisandra-Yo - needed rosa isela, M.D. 02/20 Acetaminophen-Co 09/19 Hx Tablets 300-30mg 20tabs 1 three Brian valladares # times a Shaunna, - day as M.D. 02/20 needed for pain Percocet 09/11 Hx Tablets 5-325mg 40tabs 1-2 by mouth Fry-Yo - every 4 to rosa isela, M.D. 09/28 6 hours as needed pain Augmentin 09/11 Hx Tablets 500-125mg 20tabs 1 by mouth Sydney twice a Fry-Yo - day rosa isela, M.D. 10/09 Tracy 06/27 Hx Tablets 5-325mg 20tabs take 1 tab Sydney by mouth Fry-Yo - 4-6 times rosa isela, M.D. 09/10 a day needed pain Tramadol HCL 04/25 Hx Tablets 50mg 30tabs 1 tab po q Neno hs Abdon, - M.D. 05/26 Cyclobenzaprine 02/21 Hx Tablets 10mg 42tabs 1 tab tid Neno Abdon - M.D. 02/22 Codeine/Acetamin 01/06 Hx Tablets 300-30mg 60tabs 1 to 2 tid Neno as needed Abdon, - for pain M.D. 09/19 Tracy 11/09 Hx Tablets 5-325mg 60tabs take 1-2 tab po Abdon, - every 4-6 M.D. 11/09 hours needed for pain Tracy 11/09 Hx Tablets 5-325mg 45tabs take 1 tab po tid prn Abdon, - pain M.D. 01/30 Percocet 11/03 Hx Tablets 5-325mg 60tabs take 1-2 tabs po Abdon, - q4-6 hours M.D. 05/31 prn pain /2013 Voltaren 08/26 Hx Gel 1% Lrgtube apply 2 grams Abdon, - topically M.D. 01/30 times a day Tramadol HCL 08/08 Hx Tablets 50mg 90tabs 1 tab po Neno tid prn Abdon, - pain M.D. 01/30 Tracy 04/28 Hx Tablets 5-325mg 30tabs take 1-2 tab po tid Fry-Yo - prn pain rosa isela, M.D. 01/30 Tramadol HCL 03/30 Hx Tablets 50mg 50tabs 1 po q 4 hr prn Abdon - Ugo.DRox 05/31 Lyrica 12/09 Hx Capsules 100mg 90caps [...] tab po bid prn Abdon - muscle M.D. 12/02 Tracy 11/22 Hx Tablets 5-325mg 40tabs 1-2 po q4h prn pain Lisandra-Taco - Rubén natarajan 01/30 Percocet 06/23 Hx Tablets 5-325mg 30tabs 1-2 po q 4-6 hr prn Abdon - pain AyseDRox 01/30 Zofran Odt 06/12 Hx Tablets 4mg 28tabs take 1 tab Dispers po q6 Fry-Yo - hours prn Rubén natarajan 01/30 Cephalexin Hx Tablets 500mg 21tabs one three [...] M.D. Depomedrol 80MG 12/02/ Administered Injection Neno Hernan Coppola M.D. 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 Laboratory developed test. Test Performed by: [address] [address] Child And Family Therapist: Simone Cain III, M.D. 9 RUN DATE: 11/25/12 [facility] LAB LIVE PAGE 1 RUN TIME: [address] [place] [id number] Specimen Inquiry Name: CATARINO HOLLEY : [address]: Neno Coppola MD Acct: [id number] Unit: [id number] AGE: 42 Location: [place] Re11/09/12 SEX: F Status: REG [facility] SPEC: [id number] JOVAN: 11/09/12- SUBM DR: Neno Coppola MD REQ: [id number] RECD: 11/09/124 STATUS: SOUT _ ORDERED: Decal, [...] specimen is received in formalin labeled Catarino UgoRox Holley, Left Distal Clavicle and consists of a 2.0 x 0.8 x 0.4 cm. portion of bone. Dairy Worker one cassette after decalcification. CONTINUED ON NEXT PAGE * ML=Testing performed at Main Lab DEPARTMENT OF PATHOLOGY, [facility] [employer] [place] [address] Emeterio Benavides M.D. Director [facility] Permit #[id number] RUN DATE: 11/25/12 [facility] LAB LIVE PAGE 2 RUN TIME: 1125 [facility] RegisterPatient [place], [place] [address] Specimen Inquiry Patient: CATARINO HOLLEY [id number] (Continued) GROSS DESCRIPTION (Continued) GROSS DESCRIPTION (Continued) MICROSCOPIC DESCRIPTION Signed (signature on file) Selena Trujillo MD 06/04 1126 END OF REPORT * ML=Testing performed at Main Lab DEPARTMENT OF PATHOLOGY, [address] [place] [address] Emeterio Benavides M.D. Director [place] [employer] Permit #[id number] 10 If is still suspected, please repeat test after 48 to 72 hours. This test detects intact HCG only and is indicated for the early detection of . Procedures Date CPT Code Description Status Comment 05/10/2017 87517 Arthroscopy Shoulder,W/Rotator Cuff Repair Completed 05/10/2017 06800 Arthroscopy Shoulder,W/Rotator Cuff Repair Completed 05/10/2017 15256 Arthroscopy,Shoulder Decompression Of Completed Subacromial Space W/Acromio 05/10/2017 65331 Arthroscopy,Shoulder Decompression Of Completed Subacromial Space W/Acromio 05/10/2017 99118 Arthroscopy Shoulder Debridement Extensive Completed 05/10/2017 74576 Arthroscopy Shoulder Debridement Extensive Completed 03/09/201759390 Inject/Drain Joint/Bursa Major Completed 10/05/2016 13835 Fasciectomy Palmar Only Tissue Rearrage Or Skin Completed Grafting 10/05/2016 85841 Fasciectomy Palmar Only Tissue Rearrage Or Skin Completed Grafting 04/09/2015 57467 Excision Tendon Sheath Ganglion /Or Joint Completed Capsule Hand Or Finger 11/15/2013 31961 Rad Exam; Fingers Completed 10/30/2013 89284 Rad Exam; Fingers Completed 10/13/2013 09916 Rad Exam; Fingers Completed 09/18/2013 99476 Rad Exam; Fingers Completed 09/07/2013 18394 Arthrodesis IP JT W/Wo Fixation Completed 09/07/2013 17603 Arthrodesis IP JT W/Wo Fixation Completed 07/14/2013 02183 Trigger Finger Release Incision / Tendon Sheath Completed Incision 07/14/2013 25866 Trigger Finger Release Incision / Tendon Sheath Completed Incision 05/31/2013 55773 Rad Exam; Fingers Completed 05/31/2013 48373 Rad Exam; Fingers Completed 05/31/2013 40499 Injection, Carpal Tunnel Completed 02/21/2013 87496 Rad Exam; Clavicle Comp Completed 11/09/2012 74143 claviculectomy;partial Completed 11/09/2012 65482 claviculectomy;partial Completed 10/04/2012 37072 Carpal Tunnel Release Completed 10/04/2012 22576 Carpal Tunnel Release Completed 08/26/2012 87908 Inject/Drain Joint/Bursa Major Completed 08/26/2012 72359 Inject/Drain Joint/Bursa Intermediate Completed 07/29/2012 74400 Rad Exam; Foot Comp Completed 07/28/2012 79617 Rad Shoulder Comp, Min. 2 Views Completed 06/06/2012 93357 FX Treatment Closed Phalanx Other Than Great Completed 24 Toe W/O Manip 06/06/201216664 Injection, Carpal Tunnel Completed 02/03/2012 44471 Arthroscopy Shoulder Debridement Limited Completed 02/03/2012 89232 Arthroscopy Shoulder Debridement Limited Completed 02/03/2012 14389 claviculectomy;partial Completed 02/03/2012 87038 claviculectomy;partial Completed 12/22/2011 67758 Carpal Tunnel Release Completed 12/22/2011 54151 Carpal Tunnel Release Completed 12/03/2011 73643 Inject Tendon Sheath Or Ligament Aponeurosis Eg Completed Plantar Fascia 09/09/2011 32169 Rad Exam; Fingers Completed 08/10/2011 43223 Rad Exam; Fingers Completed 07/13/2011 81984 Rad Exam; Fingers Completed 06/24/2011 33049 Rad Exam; Fingers Completed 06/12/2011 13348 Arthrodesis IP JT W/Wo Fixation Completed 06/12/2011 37630 Arthrodesis IP JT W/Wo Fixation Completed 04/28/2011 51333 Rad Exam; Fingers Completed 04/28/2011 96459 Rad Exam; Hand Comp Completed 04/28/2011 34372 Rad Exam; Hand Comp Completed Encounters Type Date Location Provider CPT E/M Dx Office Visit 04/29/2017 1:45p [facility] [place] [address] M75.42 C.M[facility]. S46.102A M25.512 M54.12 Office Visit 04/06/2017 3:00p [facility] [place] [address] M75.42 C.M[facility]A. M25.512 M54.12 Office Visit 03/09/2017 3:00p [facility] [place] [address] M75.42 C.M[facility]A. M25.512 Office Visit 09/30/2016 1:15p [facility] [place] [address] R22.32 C[facility] Office Visit 04/03/2015 9:30a [facility] Chai Pierce M.D. 09645 M71.349 C.M[facility]A. M71.341 Office Visit 06/21/2014 9:30a [facility] Neno Coppola M.D. 13037 726.11 C.M[facility]. Office Visit 05/31/2013 8:15a [facility] [place] 36280 354.0 C.M.ARox Otto M.D. 727.03 715.34 Office Visit 04/25/2013 9:45a [facility] Neno Coppola M.D. 38712 728.85 C.M.A. Office Visit 02/21/2013 2:15p [facility] N[facility] Coppola M.D. 50204 728.85 C.M.A. Office Visit 10/18/2012 1:30p [facility] N[facility] Coppola M.D. 35565 726.19 C.M.A. Office Visit 10/07/2012 1:00p [facility] NADEEM Steel 27145 840.0 C.M.A. Office Visit 07/29/2012 1:45p [facility] Carroll 16186 826.0 C.M.A. M.D. Office Visit 07/28/2012 9:30a [facility] Coppola M.D. 99007 840.0 C.M.A. Office Visit 06/06/2012 8:30a [facility] [place] 53427 354.0 C.M.ARox Otto M.D. 826.0 Office Visit 12/25/2011 8:15a [facility] Coppola M.D. 51587 719.41 C.M.A. Office Visit 12/10/2011 4:15p [facility] Coppola M.D. 60245 719.41 C.M.ARox Office Visit 12/03/2011 4:30p [facility] Coppola M.D. 33972 723.4 C.M.A. 726.12 719.41 Office Visit 11/24/2011 8:00a [facility] Coppola M.D. 35555 723.4 C.M.ARox Office Visit 11/23/2011 11:00a [facility] [place] 55331 354.0 C.M.ARox Otto M.D. Office Visit 06/03/2011 8:00a [facility] [place] 94148 715.94 C.Ugo.Vijaya Otto M.D. Office Visit 04/28/2011 10:15a [facility] [place] 96275 727.41 C.M.ARox Otto M.D. Plan of Care Future Appointment(s):06/22/2017 2:30 pm - [facility]05/20/2017 - MATTI Saez-CM75.42 Impingement syndrome of left shoulderNew Therapy:Physical TherapyComments:Start PT 06/07Call to have us fax the protocol06/21 ok to wean out of slingFollow up:Follow up: 1st week MayM75.112 Incomplete rotatr-cuff tear/ruptr of l shoulder, not engahrD16.812 Oth specific joint derangements of left shoulder, NECM67.812 Other specified disorders of synovium, left sawvpbhzD03.9 Bursopathy, unspecified
[2017-05-29 09:43] VITALS: BP 172/98
--- NOTE | 2017-05-29 10:46 | RAD ---
INDICATION: Left shoulder injury. COMPARISON: Comparison is made with a prior study from March 09, 2017. TECHNIQUE: 4 views of the left shoulder were obtained. FINDINGS: There is widening of the acromioclavicular joint which is unchanged most consistent with postsurgical change. The bones are otherwise in normal alignment. No fracture is seen. IMPRESSION: 1. NO EVIDENCE FOR FRACTURE. 2. WIDENING OF THE ACROMIOCLAVICULAR JOINT, UNCHANGED LIKELY SECONDARY TO PRIOR SURGERY.
--- NOTE | 2017-05-29 10:54 | UC ---
Jakub House Rebecca, scribed for [facility] MD on 05/29/17 at 0954 . Upper Extremity HPI - HPI Summary HPI Summary: In Room: Pt is a 46 y/o F almost 3 weeks post-op from L shoulder surgery who presents to [facility] c/o L shoulder pain s/p fall. Prior to L shoulder impingement surgery, the patient had 9/10 pain, and since surgery, her chronic pain has improved, about 3/10. This morning, at approximately 0100 while bringing her dog out, she fell onto her wooden porch, "bounding" the front of the L shoulder on the surface. Pain is described as being diffusely throughout the L shoulder, aching, and severe, ranked 9/10. Denies any other symptoms, including neck pain. Since surgery on May 10, L shoulder has been in the sling with no movement. MD: Vital signs stable. Afebrile, BP 172/98, patient is on antihypertensive treatment. Visit history is significant for recent surgery for left shoulder impingement syndrome. She has had 4 previous surgeries prior to that surgery. Surgery included repair of the rotator cuff, she is supposed to use a sling, and later physical therapy. Besides hypertension, pt has had gastric bypass. Nurse's: pt has had lt shoulder surgery on may 10 and was taking the dog out this am and fel on her lt shoulder. - History of Current Complaint Chief Complaint: UCUpperExtremity Stated Complaint: SHOULDER INJURY Time Seen by Provider: 05/29/17 09:51 Hx Obtained From: Patient Hx Last Menstrual Period: 09/21/15 Onset/Duration: Lasting Hours - Since 0100, Still Present Severity Currently: Severe Pain Intensity: 8 Pain Scale Used: 0-10 Numeric Location Of Pain: Is Discrete @ - L shoulder pain Character: Aching Associated Signs And Symptoms: Positive: Negative - Allergies/Home Medications Allergies/Adverse Reactions: Allergies Allergy/AdvReac Type Severity Reaction Status Date / Time shellfish derived Allergy Severe Anaphylatic Verified 05/29/17 09:43 Shock metformin AdvReac Severe Diarrhea Verified 05/29/17 09:43 PMH/Surg Hx/FS Hx/Imm Hx Endocrine History: Diabetes Cardiovascular History: Hypertension - Surgical History Surgical History: Yes Surgery Procedure, Year, and Place: Right Index Finger 09/07/13,. 06/03 R HAND, 5TH DIGIT, W/ PIN; GANGLION CYST - REMOVED FROM MIDDLE FINGER. 09/2009 & LEFT SHOULDER BONE SPUR , 10/2012, LEFT SHOULDER, [facility] ( DISLOCATED-SEPERATED FROM A FALL). 12/20/09 HERNIA,. 12/30 GASTRIC BYPASS,. gall bladder removed 2015. 11/22 & 11-24 GANGLION CYSTS,. JARETT CARPAL TUNNEL. LEFT 5th finger trigger release 08/2014 - Family History Known Family History: Positive: Hypertension, Diabetes, Other - ARTHRITIS; OBESITY - Social History Alcohol Use: Rare Alcohol Amount: 2-3 TIMES A YEAR Substance Use Type: None Smoking Status (MU): Never Smoked Tobacco Have You Smoked in the Last Year: No Review of Systems Constitutional: Negative Skin: Negative Eyes: Negative ENT: Negative Respiratory: Negative Cardiovascular: Negative Gastrointestinal: Negative Genitourinary: Negative Motor: Negative Neurovascular: Negative Musculoskeletal: Other: - L shoulder pain Neurological: Negative Psychological: Negative All Other Systems Reviewed And Are Negative: Yes - Comments Additional Review of Systems Comments: POSITIVE: Left shoulder pain NEGATIVE: Neck pain Physical Exam - Summary Physical Exam Summary: Appearance: The patient is well-appearing, is in no pain distress, and is well- nourished. Eyes: Conjunctiva are clear. ENT: The hearing is grossly normal, the pharynx is normal, and the TMs are normal. There is no muffled or hoarse voice. Neck: The neck is supple and there is no lymphadenopathy. Respiratory: The chest is nontender. The lungs are clear, there are normal breath sounds, and there is no respiratory distress. Cardiovascular: Heart is regular rate and rhythm. There is no murmur. Bowel sounds: present Musculoskeletal: Strength is intact. Examination of the left shoulder reveals the patient is holding it close to her body, flexed at the elbow. It is in a sling and the patient has been instructed to not move the left shoulder. The pain is localized anteriorly. Neurological: The patient is alert. Psychological: The patient displays age appropriate behavior Skin: Negative for rashes. Triage Information Reviewed: Yes Vital Signs: Initial Vital Signs Temp 97.2 F 05/29/17 09:40 Pulse 109 05/29/17 09:40 Resp 18 05/29/17 09:40 BP 172/98 05/29/17 09:40 Pulse Ox 98 04/07/18 09:40 Vital Signs Reviewed: Yes Diagnostics - Radiology Shoulder XR Xray Interpretation: No Acute Changes - 1. NO EVIDENCE FOR FRACTURE. 2. WIDENING OF THE ACROMIOCLAVICULAR JOINT, UNCHANGED LIKELY SECONDARY TO PRIOR SURGERY. Radiology Interpretation Completed By: Radiologist Re-Evaluation - Re-Evaluation First Eval Re-Evaluation Time: 10:52 Change: Unchanged Comment: Discussed results. Upper Extremity Course/Dx - Course Course Of Treatment: Pt with complex L shoulder surgical history, in sling, suffered direct fall on her anterior left shoulder. XR did not show fracture. My diagnosis is contusion and sprain. I told the patient to call her doctor if the condition is not resolving in a few days or if she notices any new pain or disability. Elevated BP but has current hypertension diagnosis and treatment. This should be rechecked a few times in the next month. Medications have been included in the original chart and reviewed. Allergies noted. - Differential Dx/Diagnosis Provider Diagnoses: Left shoulder sprain and contusion. Discharge - Sign-Out/Discharge Documenting (check all that apply): Discharge - Discharge - Discharge Plan Condition: Stable Disposition: HOME Patient Education Materials: Shoulder Sprain (ED) Referrals: Trudy Renner MD [Primary Care Provider] - Additional Instructions: Your blood pressure reading today was 172/98, indicating HYPERTENSION. Follow- up with your primary care provider within 4 weeks for blood pressure readings and further evaluation. PLEASE SEEK CARE AT THE EMERGENCY DEPARTMENT IF SYMPTOMS WORSEN OR IF NEW SYMPTOMS DEVELOP. FOLLOW UP WITH YOUR PRIMARY CARE PHYSICIAN. WE DISCUSSED: 1. You have bruised and sprained your shoulder. No broken bones. 2. Warm moist heat in the morning to loosen muscles; ice to any specific area of discomfort during the day. 3. Call your doctor for any increased pain or disability. 4. Recheck at any time for new symptoms. The documentation as recorded by the Jakub downey Rebecca accurately reflects the service I personally performed and the decisions made by me, Tim Jolly MD.
== END 2017-05-29 10:55 | disposition home or self-care (01) ==
LOC: UCEAST 09:35
DX: S43.402A Unspecified sprain of left shoulder joint, initial encounter (principal); S40.012A Contusion of left shoulder, initial encounter; W19.XXXA Unspecified fall, initial encounter; Y93.89 Activity, other specified; Y92.008 Other place in unspecified non-institutional (private) residence as the place of occurrence of the external cause; Z98.890 Other specified postprocedural states; E11.9 Type 2 diabetes mellitus without complications; Z79.84 Long term (current) use of oral hypoglycemic drugs; I10 Essential (primary) hypertension; Z88.8 Allergy status to other drugs, medicaments and biological substances
CPT/HCPCS: 99212; G0463

== ENCOUNTER 2017-07-17 15:56 | Emergency (ER) | payer BC ==
--- OUTSIDE RECORDS SUMMARY | 2017-07-17 16:18 | XMS REPORT ---
:1970 External Reference #:[id number] Author Organization [facility] Address [address] [address] Phone [phone] Care Team Providers Name Role Phone Trudy Renner MD Primary Care Physician Unavailable Payers Type Date Identification Numbers Payment Provider Subscriber Commercial Effective: Policy Number: HERNANDEZ Dean Catarino Holley 2012 [id number] PayID: [id number] [address] [address] SiddharthCRISTINA martinez [address] Medigap Part B Effective: Policy Number: Meño Ye Catarino Holley 2010 [id number] Ppo Expires: 2012 PayID: [id number] [address] [address] [place] [address] Problems Date Description Provider Status Onset: 03/09/2017 Disorder of shoulder Diego Hill MD Active Onset: 03/09/2017 Shoulder joint pain Diego Hill MD Active Onset: 04/06/2017 Brachial neuritis Diego Hill MD Active Onset: 04/29/2017 Injury of shoulder region Diego Hill MD Active Onset: 06/22/2017 Incomplete rotatr-cuff tear/ruptr of l Diego Hill MD Active shoulder, not trauma Family History Date Family Member(s) Problem(s) Comments General CAD father General hypertension father General skin cancer General Diabetes Social History Type Date Description Comments Lives With 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 ETOH Use Rarely consumes alcohol Smoking denies smoking Smoking Patient has never smoked Exercise Type/Frequency Exercises regularly Allergies, Adverse Reactions, Alerts Date Description Reaction Status Severity Comments 09/26/2012 Shellfish-derived Products active 09/26/2012 [place] active Medications Medication Date Status Form Strength Qnty SIG Indications Ordering Provider Cephalexin 05/21 Active Tablets 500mg 20tabs take 1 by mouth lorraine Hill, times a MD day x 4 days Acetaminophen-Co 05/12 Active Tablets 300-30mg 20tabs 1 tabs by Diego valladares # mouth Yaseen, every 6 MD hours as needed pain Ondansetron 05/11 Active Tablets 8mg 30tabs take 1 Dispers every 8 Yaseen, hours as MD needed nausea Lisinopril Active Tablets 10mg 1 by mouth Unknown every day Lexapro Active Tablets 10mg 1 by mouth Unknown every day Multivitamin Active Tablets Unknown Trulicity Active Solution 0.75mg/0. inject Pen-Injec 5ML 0.75mg t once a week Ibuprofen Active prn Oxycodone-Acetam 05/10 Hx Tablets 5-325mg 30tabs 1-2 tabs by mouth Yaseen, - every 4-6 MD 06/02 hours needed for pain Cephalexin 05/10 Hx Tablets 500mg 12tabs take 1 by mouth lorraine Hill, - times a MD 05/13 day x days Tramadol 10/05 Hx Tablets 37.5-325m 30tabs 1-2 tab by Gerald Arellano/Mikhail g mouth Vinson, etaminophen - every 4-6 MD 02/20 hours needed [place] 10/13 Hx Tablets 5-325mg 30tabs 1-2 by Gerald mouth Glen, - every 4 to M.D. 10/13 6 hours needed Keflex 10/13 Hx Capsules 500mg 40caps 1 tab by [place] mouth lorraine Fry-Yo - times a rosa isela, M.D. [place] 10/13 Hx Tablets 5-325mg 30tabs 1-2 by Brian mouth Shaunna, - every 6 M.D. 04/12 hours needed Zofran Odt 10/11 Hx Tablets 4mg 40tabs every 6 Dispers hours as Fry-Yo - needed rosa isela, M.D. 02/20 Acetaminophen-Co [...] Fry-Yo - day rosa isela, M.D. 10/09 [place] 06/27 Hx Tablets 5-325mg 20tabs take 1 tab by mouth Fry-Yo - 4-6 times rosa isela, M.D. 09/10 a day needed pain Tramadol HCL 04/25 Hx Tablets 50mg 30tabs 1 tab po q hs Abdon, - M.D. 05/26 Cyclobenzaprine 02/21 Hx Tablets 10mg 42tabs 1 tab tid Neno HCL Abdon, - M.D. 02/22 Codeine/Acetamin 01/06 Hx Tablets 300-30mg 60tabs 1 to 2 tid Neno as needed Abdon, - for pain M.D. 09/19 [place] 11/09 Hx Tablets 5-325mg 60tabs take 1-2 tab po Abdon, - every 4-6 M.D. 11/09 hours needed for pain [place] 11/09 Hx Tablets 5-325mg 45tabs take 1 tab po tid prn Abdon, - pain M.D. 01/30 Percocet 11/03 Hx Tablets 5-325mg 60tabs take 1-2 /2012 tabs po Abdon, - q4-6 hours M.D. 05/31 prn pain Voltaren 08/26 Hx Gel 1% Lrgtube apply 2 grams Abdon, - topically M.D. 01/30 times a day Tramadol HCL 08/08 Hx Tablets 50mg 90tabs 1 tab po tid prn Abdon, - pain M.D. 01/30 [place] 04/28 Hx Tablets 5-325mg 30tabs take 1-2 tab po tid Fry-Yo - prn pain rosa isela, M.D. 01/30 Tramadol HCL 03/30 Hx Tablets 50mg 50tabs 1 po q 4 hr prn Abdon, - M.D. 05/31 Lyrica 12/09 Hx Capsules 100mg 90caps 1 tab per day for 3 Young, - days, then M.D. 05/31 2 tabs day for 3 days, then 3 tabs per day Carisoprodol 12/02 Hx Tablets 250mg 15tabs 1 tab by mouth Abdon, - three M.D. 01/30 times a day prn pain Flexeril 11/23 Hx Tablets 5mg 60tabs 1 tab po bid prn Abdon, - muscle M.D. 12/02 spasm [place] 11/22 Hx Tablets 5-325mg 40tabs 1-2 po q4h prn pain Lisandra-Taco - rosa isela, M.D. 01/30 Percocet 06/23 Hx Tablets 5-325mg 30tabs 1-2 po q 4-6 hr prn Abdon - pain M.D. 01/30 Zofran Odt 06/12 Hx Tablets 4mg 28tabs take 1 tab Dispers po q6 Lisandra-Yo - hours prn rosa isela, M.D. 01/30 nausea Cephalexin Hx Tablets 500mg 21tabs one three Unknown /0000 times - daily for 10/09 7 Sulfamethoxazole Hx Unknown -Trimethoprim / - 10/09 Medications Administered in Office Medication [...] Coppola Vital Signs Date Vital Result Comment 06/22/2017 Height 68 inches 5'8" Weight 233.00 lb BP Systolic 136 mmHg BP Diastolic 84 mmHg Respiratory Rate 18 /min Pain Level 3 BMI (Body Mass Index) 35.4 kg/m2 06/08/2017 Height 68 inches 5'8" Weight 233.00 lb Heart Rate 86 /min BP Systolic 180 mmHg BP Diastolic 85 mmHg Body Temperature 98.1 F Pain Level 8 BMI (Body Mass Index) 35.4 kg/m2 05/21/2017 Height 68 inches 5'8" Weight 233.00 [...] 70-100 1 finding Glucose Laboratory test 10/05/2016 Point of Care 119 mg/dL High 70-100 2 finding Glucose Laboratory test 10/05/2016 Surgical Pathology SEE RESULT BELOW 3, 4 finding Laboratory test 04/09/2015 Surgical Pathology SEE RESULT [...] 11/09/2012 Urine Negative Negative 10 finding 1 Education Adviser: [id number] Education Adviser: [id number] 4 SEE RESULT BELOW Name: CATARINO HOLLEY : [address]: Gerald Vinson MD Acct: [id number] Unit: [id number] AGE: 45 Location: [facility] Re10/05/16 SEX: F Status: DEP SDC SPEC: [id number] JOVAN: 10/05/[address]: Gerald Vinson MD REQ: [id number] RECD: 10/05/16-1239 STATUS: SOUT _ ORDERED: LEVEL 3 COMMENTS: [id number] FINAL DIAGNOSIS Left palm, excision: -- Benign [...] performed at Main Lab DEPARTMENT OF PATHOLOGY, [address] [place] [address] Emeterio Benavides M.D. Director [facility] # [id number] 5 SEE RESULT BELOW Name: CATARINO HOLLEY : [address]: Chai Pierce MD Acct: [id number] Unit: [id number] AGE: 44 Location: OR Re04/09/15 SEX: F Status: REG [facility] SPEC: [id number] JOVAN: 04/09/15- [facility] DR: Chai Pierce MD REQ: [id number] RECD: 04/09/15 STATUS: SOUT _ ORDERED: LEVEL [...] Signed (signature on file) Selena Trujillo MD [id number] END OF REPORT * ML=Testing performed at Main Lab DEPARTMENT OF PATHOLOGY, [address] [place] [address] Emeterio Benavides M.D. 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 Laboratory developed test. Test Performed by: [facility] [place] - [address] [address] Continuous Yarn Dyeing Machine Operator: Simone Cain III, M.D. 9 RUN DATE: 11/25/12 [facility] LAB LIVE PAGE 1 RUN TIME: [address] [place] [address] Specimen Inquiry Name: CATARINO HOLLEY : [address]: Neno Coppola MD Acct: [id number] Unit: [id number] AGE: 42 Location: OR Re11/09/12 SEX: F Status: REG SDC SPEC: [id number] JOVAN: 11/09/12- [facility] DR: Neno Coppola MD REQ: [id number] RECD: 11/09/12 STATUS: SOUT _ ORDERED: Decal, LEVEL III [...] 0.8 x 0.4 cm. portion of bone. Street Cleaning Equipment Operator one cassette after decalcification. CONTINUED ON NEXT PAGE * ML=Testing performed at [facility] Lab DEPARTMENT OF PATHOLOGY, [address] [place] [address] Emeterio Benavides M.D. Director [place] [employer] Permit #[id number] RUN DATE: 11/25/12 [facility] LAB LIVE PAGE 2 RUN TIME: [address] [place] [address] Specimen Inquiry Patient: HOLLEYSOFIECATARINO Ugo [id number] (Continued) GROSS DESCRIPTION (Continued) GROSS DESCRIPTION (Continued) MICROSCOPIC DESCRIPTION Signed (signature on file) Selena Trujillo MD 06/04 1126 END OF REPORT * ML=Testing performed at Main Lab DEPARTMENT OF PATHOLOGY, [address] [place] [address] Emeterio Benavides M.D. Director [facility] Permit #[id number] 10 If is still suspected, please repeat test after 48 to 72 hours. This test detects intact HCG only and is indicated for the early detection of . Procedures Date CPT Code Description Status Comment 05/10/2017 12320 Arthroscopy Shoulder,W/Rotator Cuff Repair Completed 05/10/2017 06120 Arthroscopy Shoulder,W/Rotator Cuff Repair Completed 05/10/2017 77347 Arthroscopy,Shoulder Decompression Of Completed Subacromial Space W/Acromio 05/10/2017 35103 Arthroscopy,Shoulder Decompression Of Completed Subacromial Space W/Acromio 05/10/2017 37384 Arthroscopy Shoulder Debridement Extensive Completed 05/10/2017 41769 Arthroscopy Shoulder Debridement Extensive Completed 03/09/2017 58278 Inject/Drain Joint/Bursa Major Completed 10/05/2016 67522 Fasciectomy Palmar Only Tissue Rearrage Or Skin Completed Grafting 10/05/2016 55264 Fasciectomy Palmar Only Tissue Rearrage Or Skin Completed Grafting 04/09/2015 40322 Excision Tendon Sheath Ganglion /Or Joint Completed Capsule Hand Or Finger 11/15/2013 07127 Rad Exam; Fingers Completed 10/30/2013 15344 Rad Exam; Fingers Completed 10/13/2013 29946 Rad Exam; Fingers Completed 09/18/2013 12850 Rad Exam; Fingers Completed 09/07/2013 74273 Arthrodesis IP JT W/Wo Fixation Completed 09/07/2013 30948 Arthrodesis IP JT W/Wo Fixation Completed 07/14/2013 37994 Trigger Finger Release Incision / Tendon Sheath Completed Incision 07/14/2013 16666 Trigger Finger Release Incision / Tendon Sheath Completed Incision 05/31/2013 61513 Rad Exam; Fingers Completed 05/31/2013 94965 Rad Exam; Fingers Completed 05/31/2013 46672 Injection, Carpal Tunnel Completed 02/21/2013 14306 Rad Exam; Clavicle Comp Completed 11/09/2012 87913 claviculectomy;partial Completed 11/09/2012 87578 claviculectomy;partial Completed 10/04/2012 27214 Carpal Tunnel Release Completed 10/04/2012 47022 Carpal Tunnel Release Completed 08/26/201223814 Inject/Drain Joint/Bursa Major Completed 08/26/2012 99543 Inject/Drain Joint/Bursa Intermediate Completed 07/29/2012 67339 Rad Exam; Foot Comp Completed 07/28/2012 38511 Rad Shoulder Comp, Min. 2 Views Completed 06/06/2012 79293 FX Treatment Closed Phalanx Other Than Great Completed 24 Toe W/O Manip 06/06/2012 Injection, Carpal Tunnel Completed 02/03/2012 86532 Arthroscopy Shoulder Debridement Limited Completed 02/03/2012 15556 Arthroscopy Shoulder Debridement Limited Completed 02/03/2012 69452 claviculectomy;partial Completed 02/03/2012 77196 claviculectomy;partial Completed 12/22/2011 06934 Carpal Tunnel Release Completed 12/22/2011 20849 Carpal Tunnel Release Completed 12/03/201169273 Inject Tendon Sheath Or Ligament Aponeurosis Eg Completed Plantar Fascia 09/09/2011 20646 Rad Exam; Fingers Completed 08/10/2011 70747 Rad Exam; Fingers Completed 07/13/2011 44596 Rad Exam; Fingers Completed 06/24/2011 00158 Rad Exam; Fingers Completed 06/12/2011 10007 Arthrodesis IP JT W/Wo Fixation Completed 06/12/2011 72122 Arthrodesis IP JT W/Wo Fixation Completed 04/28/2011 87003 Rad Exam; Fingers Completed 04/28/2011 61981 Rad Exam; Hand Comp Completed 04/28/2011 42859 Rad Exam; Hand Comp Completed Encounters Type Date Location Provider CPT E/M Dx Office Visit 04/29/2017 1:45p [facility] [place] [address] M75.42 C.M.A. S46.102A M25.512 M54.12 Office Visit 04/06/2017 3:00p [facility] [place] [address] M75.42 C.M.A. M25.512 M54.12 Office Visit 03/09/2017 3:00p [facility] [place] [address] M75.42 C.M.A. M25.512 Office Visit 09/30/2016 1:15p [facility] [place] [address] R22.32 C.M.A. Office Visit 04/03/2015 9:30a [facility] Pierce M.D. 35218 M71.349 C.M.A. M71.341 Office Visit 06/21/2014 9:30a [facility] Coppola M.D. 05166 726.11 C.M.A. Office Visit 05/31/2013 8:15a [facility] [place] 43516 354.0 C.M.ARox Otto M.D. 727.03 715.34 Office Visit 04/25/2013 9:45a [facility] Coppola M.D. 30256 728.85 C.M.A. Office Visit 02/21/2013 2:15p [facility] Coppola M.D. 49480 728.85 C.M.A. Office Visit 10/18/2012 1:30p [facility] Coppola M.D. 66260 726.19 C.M.A. Office Visit 10/07/2012 1:00p [facility] NADE[place] Steel 51930 840.0 C.M.A. Office Visit 07/29/2012 1:45p [facility] [place] 00289 826.0 C.M.ARox [place] Office Visit 07/28/2012 9:30a [facility] Coppola M.D. 14235 840.0 C.M.A. Office Visit 06/06/2012 8:30a [facility] [place] 46319 354.0 C.M.ARox Otto M.D. 826.0 Office Visit 12/25/2011 8:15a [facility] Coppola M.D. 03852 719.41 C.M.A. Office Visit 12/10/2011 4:15p [facility] Coppola M.D. 39262 719.41 C.M.A. Office Visit 12/03/2011 4:30p [facility] Coppola M.D. 80638 723.4 C.M.A. 726.12 719.41 Office Visit 11/24/2011 8:00a [facility] Coppola M.D. 26738 723.4 C.M.A. Office Visit 11/23/2011 11:00a [facility] [place] 42168 354.0 C.M.ARox Otto M.D. Office Visit 06/03/2011 8:00a [facility] [place] 44028 715.94 [place] Otto M.D. Office Visit 04/28/2011 10:15a [facility] [place] 11848 727.41 [place] Otto M.D. Plan of Care Future Appointment(s):08/03/2017 3:00 pm - Diego Hill MD at [facility] [place]06/22/2017 - Diego Hill, MDM75.112 Incomplete rotatr-cuff tear/ruptr of l shoulder, not traumaFollow up:Follow up: 6 weeks
[2017-07-17 16:24] VITALS: BP 196/91
--- NOTE | 2017-07-17 16:39 | UC ---
Upper Extremity HPI - HPI Summary HPI Summary: had L shoulder surgery in April 2017, has been doing well until 1 week ago she began having pain in upper L arm. no trauma, worse in am after sleeping. better if uses shoulder sling and pillow. has been taking ibuprofen and tylenol with little relief - History of Current Complaint Chief Complaint: UCUpperExtremity Stated Complaint: ARM PAIN Time Seen by Provider: 07/17/17 15:58 Hx Obtained From: Patient Hx Last Menstrual Period: today Onset/Duration: Gradual Onset Severity Initially: Moderate Severity Currently: Severe Pain Intensity: 9 Character: Sharp, Throbbing, Stiffness Aggravating Factor(s): Movement, Lifting, Extension Alleviating Factor(s): Rest, Other: - sling Associated Signs And Symptoms: Positive: Negative Related History: Other: - several L shoulder surgeries - Allergies/Home Medications Allergies/Adverse Reactions: Allergies Allergy/AdvReac Type Severity Reaction Status Date / Time shellfish derived Allergy Severe Anaphylatic Verified 07/17/17 16:24 Shock metformin AdvReac Severe Diarrhea Verified 07/17/17 16:24 PMH/Surg Hx/FS Hx/Imm Hx Previously Healthy: Yes Endocrine History: Diabetes Cardiovascular History: Hypertension GI/ History: Other - gastric bypass 10 years ago Other GI/ History: bypass Psychological History: Depression - Surgical History Surgical History: Yes Surgery Procedure, Year, and Place: Right Index Finger 09/07/13,. 06/03 R HAND, 5TH DIGIT, W/ PIN; GANGLION CYST - REMOVED FROM MIDDLE FINGER. 09/2009 & LEFT SHOULDER BONE SPUR , 10/2012, LEFT SHOULDER, [facility] ( DISLOCATED-SEPERATED FROM A FALL). 12/20/09 HERNIA,. 04/2017-LEFT SHOULDER SURGERY. 12/30 GASTRIC BYPASS,. gall bladder removed 2016. 11/22 & 11-24 GANGLION CYSTS,. JARETT CARPAL TUNNEL. 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 Lives: Alone Alcohol Use: Rare Alcohol Amount: 2-3 TIMES A YEAR Substance Use Type: None Smoking Status (MU): Never Smoked Tobacco Have You Smoked in the Last Year: No Review of Systems Constitutional: Negative Respiratory: Negative Cardiovascular: Negative Musculoskeletal: Decreased ROM - L shoulder Neurological: Negative Psychological: Negative All Other Systems Reviewed And Are Negative: Yes Physical Exam Triage Information Reviewed: Yes Appearance: Well-Appearing, No Pain Distress, Obese Vital Signs: Initial Vital Signs Temp 96.9 F 07/17/17 16:18 Pulse 82 07/17/17 16:18 Resp 20 07/17/17 16:18 BP 196/91 07/17/17 16:18 Pulse Ox 100 07/17/17 16:18 Vital Signs Reviewed: Yes Respiratory Exam: Normal Cardiovascular Exam: Normal Musculoskeletal: Positive: Strength Limited @, ROM Limited @ - L shoulder with abduction or extension, points to upper biceps area as point of pain, can flex and ext elbow. Radial pulse and distal sensation normal Upper Extremity Course/Dx - Differential Dx/Diagnosis Differential Diagnosis/HQI/PQRI: Bursitis, Strain, Sprain Provider Diagnoses: L shoulder strain Discharge - Sign-Out/Discharge Documenting (check all that apply): Discharge/Admit/Transfer - Discharge Plan Condition: Stable Disposition: HOME Prescriptions: Cyclobenzaprine TAB* [Flexeril 10 MG TAB*] 10 mg PO TID PRN #12 tab PRN Reason: Spasms - Muscle Patient Education Materials: Shoulder Pain (ED) Referrals: Trudy Renner MD [Primary Care Provider] - Diego Hill MD [Medical Doctor] - 2 Days (follow-up) Additional Instructions: apply ice to area of pain, may alternate wiht warm packs. use cyclobenzaprine muscle relaxer as prescribed ibuprofen or Tylenol as directed wear your sling from home follow-up with Dr. Hill on Wednesday - Billing Disposition and Condition Condition: STABLE Disposition: HOME
== END 2017-07-17 16:45 | disposition home or self-care (01) ==
LOC: UCEAST 15:56
DX: S46.912A Strain of unspecified muscle, fascia and tendon at shoulder and upper arm level, left arm, initial encounter (principal); X58.XXXA Exposure to other specified factors, initial encounter; Y93.9 Activity, unspecified; Y92.9 Unspecified place or not applicable; E11.9 Type 2 diabetes mellitus without complications; I10 Essential (primary) hypertension; F32.9 Major depressive disorder, single episode, unspecified; Z98.84 Bariatric surgery status; Z90.49 Acquired absence of other specified parts of digestive tract; Z88.8 Allergy status to other drugs, medicaments and biological substances; Z91.013 Allergy to seafood
CPT/HCPCS: 99212; G0463

== ENCOUNTER 2017-10-20 15:21 | Emergency (ER) | payer BC ==
[2017-10-20 15:43] VITALS: BP 189/92
[2017-10-20] MEDS ORDERED: Ondansetron INJ* 2 MG/ML VIAL IV ONE (16:36)
--- NOTE | 2017-10-20 16:43 | UC ---
Abdominal Pain Female HPI - HPI Summary HPI Summary: Complains of several days of right-sided sharp abdominal pain. Symptoms have been intermittent but now becoming more frequent. Went to work this morning and developed dry heaves. Feels nauseated and dizzy. No fever. No urinary symptoms. Has history of cholecystectomy. Still has appendix. - History of Current Complaint Chief Complaint: UCAbdominalPain Stated Complaint: VOMITING Time Seen by Provider: 10/20/17 16:21 Hx Obtained From: Patient Hx Last Menstrual Period: 4 months ago Onset/Duration: Gradual Onset, Lasting Days, Still Present Timing: Constant Severity Initially: Moderate Severity Currently: Moderate Pain Intensity: 0 Pain Scale Used: 0-10 Numeric Location: Diffuse Radiates: No Character: Sharp Aggravating Factor(s): Nothing Alleviating Factor(s): Nothing Associated Signs and Symptoms: Positive: Decreased Appetite, Nausea. Negative: Fever, Back Pain, Blood in Stool, Urinary Symptoms Allergies/Adverse Reactions: Allergies Allergy/AdvReac Type Severity Reaction Status Date / Time shellfish derived Allergy Severe Anaphylatic Verified 10/20/17 15:43 Shock metformin AdvReac Severe Diarrhea Verified 10/20/17 15:43 PMH/Surg Hx/FS Hx/Imm Hx Endocrine History: Diabetes Cardiovascular History: Hypertension - Surgical History Surgical History: Yes Surgery Procedure, Year, and Place: Right Index Finger 09/07/13,. 06/03 R HAND, 5TH DIGIT, W/ PIN; GANGLION CYST - REMOVED FROM MIDDLE FINGER. 09/2009 & LEFT SHOULDER BONE SPUR , 10/2012, LEFT SHOULDER, [facility] ( DISLOCATED-SEPERATED FROM A FALL). 12/20/09 HERNIA,. 04/2017-LEFT SHOULDER SURGERY. 12/30 GASTRIC BYPASS,. gall bladder removed 2015. 11/22 & 11-24 GANGLION CYSTS,. JARETT CARPAL TUNNEL. LEFT 5th finger trigger release 08/2014 - Family History Known Family History: Positive: Cardiac Disease, Hypertension, Diabetes, Other - ARTHRITIS; OBESITY - Social History Alcohol Use: Rare Alcohol Amount: 2-3 TIMES A YEAR Substance Use Type: None Smoking Status (MU): Never Smoked Tobacco Have You Smoked in the Last Year: No Review of Systems Constitutional: Negative Respiratory: Negative Cardiovascular: Negative Gastrointestinal: Abdominal Pain, Nausea Genitourinary: Negative Neurological: Other - DIZZY All Other Systems Reviewed And Are Negative: Yes Physical Exam Triage Information Reviewed: Yes Appearance: No Pain Distress, Well-Nourished, Ill-Appearing - MODERATELY Vital Signs: Initial Vital Signs Temp 95.9 F 10/20/17 15:40 Pulse 91 10/20/17 15:40 Resp 18 10/20/17 15:40 BP 189/92 10/20/17 15:40 Pulse Ox 100 10/20/17 15:40 Vital Signs Reviewed: Yes Eyes: Positive: Conjunctiva Clear ENT: Positive: Hearing grossly normal Neck: Positive: Supple Respiratory Exam: Normal Cardiovascular Exam: Normal Abdomen Description: Positive: Soft, Other: - MILDLY TENDER DIFFUSELY BUT MOSTLY RIGHT SIDED. NO REBOUND OR RIGIDITY. NEG PSOAS SIGN. Negative: CVA Tenderness (R), CVA Tenderness (L), Distended, Guarding Bowel Sounds: Positive: Present Musculoskeletal: Positive: No Edema Neurological: Positive: Alert Psychological: Positive: Age Appropriate Behavior Skin: Negative: rashes Abd Pain Female Course/Dx - Course Course Of Treatment: [place] [facility] [place] - Differential Dx/Diagnosis Provider Diagnoses: 1. ABDOMINAL PAIN, NOS. 2. NAUSEA - Physician Notification/Consults Discussed Care of Patient With: Roxanna Gutierrez - [place] [facility] [place] Time Discussed With Above Provider: 16:44 Instructed by Provider To: MD Will See In ED Discharge - Sign-Out/Discharge Documenting (check all that apply): Patient Departure All imaging exams completed and their final reports reviewed: No Studies - Discharge Plan Condition: Stable Disposition: TRANS HIGHER LVL OF CARE FAC Referrals: Trudy Renner MD [Primary Care Provider] - - Billing Disposition and Condition Condition: STABLE Disposition: Trans Higher Lvl of Care Fac
[2017-10-20] MEDS ORDERED: NS 0.9% 1000 ML* 1,000 ML IV SCH (16:45)
== END 2017-10-20 17:20 | disposition short-term general hospital (02) ==
LOC: UCEAST 15:21
DX: R10.9 Unspecified abdominal pain (principal); R11.0 Nausea; R42 Dizziness and giddiness; Z91.013 Allergy to seafood; Z88.8 Allergy status to other drugs, medicaments and biological substances; Z90.49 Acquired absence of other specified parts of digestive tract
CPT/HCPCS: 96360; 96374; 99213; G0463; J2405

== ENCOUNTER 2017-10-20 17:25 | Emergency (ER) | payer BC ==
[2017-10-20] MEDS ORDERED: NS 0.9% 1000 ML* 1,000 ML IV ONE (18:01)
[2017-10-20] MEDS ORDERED: Ketorolac INJ* 30 MG/ML 1 ML VIAL IV PUSH ONE (18:01)
[2017-10-20] MEDS ORDERED: Ondansetron INJ* 2 MG/ML VIAL IV ONE (18:01)
[2017-10-20 18:14] LABS: ABS Basophils 0 10^3/ul (0-0.2); ABS Eosinophils 0 10^3/ul (0-0.6); ABS Monocytes 0.2 10^3/ul (0-0.8); ABS Neutrophils 6.9 10^3/ul (1.5-7.7); ABS Nucleated RBC 0 10^3/ul; Eosinophil % 0.2 % (0-6); Hematocrit 31 % (35-47); Hemoglobin 10.2 g/dl (12.0-16.0); Lymphocyte % 11.9 % (25-47); Mean Corpuscular HGB Conc 33 g/dl (31-36); Mean Corpuscular Hemoglobin 28 pg (27-31); Mean Corpuscular Volume 84 fL (80-97); Mean Platelet Volume 9.6 um3 (7.4-10.4); Nucleated Red Blood Cells % 0.1; Platelet Count 282 10^3/ul (150-450); Red Blood Count 3.65 10^6/ul (4.00-5.40); Red Cell Distribution Width 16 % (10.5-15); White Blood Count 8.2 10^3/ul (3.5-10.8)
--- NOTE | 2017-10-20 18:22 | ED ---
Abdominal Pain/Female - HPI Summary HPI Summary: Pt is a 46 y/o female BIBA sent from who presents to the ED c/o right-sided abdominal pain. She states the pain began 3 days ago, but became worse today while at work. Pt also c/o dry heaving, dizziness, near-syncope, sore throat, leg cramping, and a mild headache. She denies any fever, chills, blurred vision , diplopia, ear ache, CP, SOB, neck pain, hematuria, hematochezia, vomiting, diarrhea, rash, right flank pain, LE edema, or bruising. PMHx cholecystectomy, but no kidney stones. - History of Current Complaint Chief Complaint: EDAbdPain Stated Complaint: ABD PAIN Hx Obtained From: Patient Hx Last Menstrual Period: 4 months ago Onset/Duration: Gradual Onset, Lasting Days - 3, Worse Since Timing: Constant Severity Currently: Moderate Pain Intensity: 5 Pain Scale Used: 0-10 Numeric Location: Other - Right-sided Radiates: No Aggravating Factor(s): Other: - Touch Alleviating Factor(s): Nothing Associated Signs and Symptoms: Positive: Nausea. Negative: Fever, Cough, Chest Pain, Blood in Stool, Urinary Symptoms, Vomiting, Diarrhea Allergies/Adverse Reactions: Allergies Allergy/AdvReac Type Severity Reaction Status Date / Time shellfish derived Allergy Severe Anaphylatic Verified 10/20/17 15:43 Shock metformin AdvReac Severe Diarrhea Verified 10/20/17 15:43 PMH/Surg Hx/FS Hx/Imm Hx Endocrine/Hematology History: Reports: Hx Diabetes - DIET CONTROL type 2, Hx Anemia Denies: Hx Thyroid Disease Cardiovascular History: Reports: Hx Hypertension - WELL CONTROLLED Denies: Hx Congestive Heart Failure, Hx Pacemaker/ICD, Other Cardiovascular Problems/Disorders Respiratory History: Denies: Hx Asthma, Hx Chronic Obstructive Pulmonary Disease (COPD), Other Respiratory Problems/Disorders GI History: Reports: Other GI Disorders - 2009-FLOATING INTERNAL HERNIA STATES WAS FIXED Denies: Hx Ulcer History: Denies: Hx Renal Disease, Other Problems/Disorders Musculoskeletal History: Reports: Hx Arthritis - hands and shoulders Denies: Other Musculoskeletal History Sensory History: Reports: Hx Contacts or Glasses - both- will wear glasses day of surgery Denies: Hx Cataracts, Hx Hearing Aid Opthamlomology History: Reports: Hx Contacts or Glasses - both- will wear glasses day of surgery Denies: Hx Cataracts Neurological History: Reports: Hx Migraine - IN THE PAST- been a long time since last one Denies: Other Neuro Impairments/Disorders Psychiatric History: Reports: Hx Anxiety Denies: Hx Panic Disorder - Cancer History Hx Chemotherapy: No - Surgical History Surgery Procedure, Year, and Place: Right Index Finger 09/07/13,. 06/03 R HAND, 5TH DIGIT, W/ PIN; GANGLION CYST - REMOVED FROM MIDDLE FINGER. 09/2009 & LEFT SHOULDER BONE SPUR , 10/2012, LEFT SHOULDER, [facility] ( DISLOCATED-SEPERATED FROM A FALL). 12/20/09 HERNIA,. 04/2017-LEFT SHOULDER SURGERY. 12/30 GASTRIC BYPASS,. gall bladder removed 2015. 11/22 & 11-24 GANGLION CYSTS,. JARETT CARPAL TUNNEL. LEFT 5th finger trigger release 08/2014 Hx Anesthesia Reactions: Yes - will develop severe nausea with anesthesia- scopalamine patch works - Immunization History Date of Tetanus Vaccine: UTD Date of Influenza Vaccine: 2013 Infectious Disease History: No Infectious Disease History: Denies: Hx Clostridium Difficile, Hx Hepatitis, Hx Human Immunodeficiency Virus (HIV), Hx of Known/Suspected MRSA, Hx Shingles, Hx Tuberculosis, Hx Known/ Suspected VRE, Hx Known/Suspected VRSA, History Other Infectious Disease, Traveled Outside the [place] in Last 30 Days - Family History Known Family History: Positive: Cardiac Disease, Hypertension, Diabetes, Other - ARTHRITIS; OBESITY - Social History Alcohol Use: Rare Alcohol Amount: 2-3 TIMES A YEAR Hx Substance Use: No Substance Use Type: Reports: None Hx Tobacco Use: No Smoking Status (MU): Never Smoked Tobacco Have You Smoked in the Last Year: No Review of Systems Negative: Fever, Chills Negative: Blurred Vision, Diplopia Positive: Sore Throat. Negative: Ear Ache Negative: Chest Pain Negative: Shortness Of Breath Positive: Abdominal Pain - Right, Nausea - Dry heaving. Negative: Vomiting, Diarrhea, Other - Hematochezia Negative: flank pain, hematuria Positive: Other - Leg cramping. Negative: Myalgia - Neck, Edema Negative: Rash, Bruising Neurological: Other - Dizziness Positive: Syncope - Near Negative: Anxious, Depressed All Other Systems Reviewed And Are Negative: No Physical Exam - Summary Physical Exam Summary: Appearance: Alert, conversive, nontoxic appearing Skin: Warm, dry, no mottling, no rashes, no contusions HEENT: EOMI, PERRL, moist mucous membranes Neck: No masses on the neck, supple Respiratory: Clear to auscultation, breath sounds present, no rales, no rhonchi , no wheezes Cardiovascular: RRR, pulses are symmetrical in both lower and upper extremities Abdomen: Soft, right mid-lateral tenderness, mild right flank tenderness Bowel Sounds: Present Musculoskeletal: No CVA tenderness, no obvious deformity, moving all extremities in a grossly normal manner Neurological: A&Ox3, CN II-XII Intact, moving all extremities symmetrically Psychiatric: Normal affect and mood Triage Information Reviewed: Yes Vital Signs On Initial Exam: Initial Vitals Temp Pulse Resp BP Pulse Ox 97.8 F 83 16 147/75 98 10/20/17 17:37 10/20/17 17:37 10/20/17 17:37 10/20/17 17:37 10/20/17 17:37 Vital Signs Reviewed: Yes Diagnostics - Vital Signs Vital Signs Temp Pulse Resp BP Pulse Ox 10/20/17 17:37 97.8 F 83 16 147/75 98 - Laboratory Lab Results: Lab Results 10/20/17 Range/Units 16:44 WBC 8.2 (3.5-10.8) 10^3/ul RBC 3.65 L (4.00-5.40) 10^6/ul Hgb 10.2 L (12.0-16.0) g/dl Hct 31 L (35-47) % MCV 84 (80-97) fL MCH 28 (27-31) pg MCHC 33 (31-36) g/dl RDW 16 H (10.5-15) % Plt Count 282 (150-450) 10^3/ul MPV 9.6 (7.4-10.4) um3 Neut % (Auto) 84.9 H (38-83) % Lymph % (Auto) 11.9 L (25-47) % [place] % (Auto) 2.7 (0-7) % Eos % (Auto) 0.2 (0-6) % Baso % (Auto) 0.3 (0-2) % Absolute Neuts (auto) 6.9 (1.5-7.7) 10^3/ul Absolute Lymphs (auto) 1.0 (1.0-4.8) 10^3/ul Absolute Monos (auto) 0.2 (0-0.8) 10^3/ul Absolute Eos (auto) 0 (0-0.6) 10^3/ul Absolute Basos (auto) 0 (0-0.2) 10^3/ul Absolute Nucleated RBC 0 10^3/ul Nucleated RBC % 0.1 Result Diagrams: 10/20/17 16:44 10/20/17 16:44 Lab Statement: Any lab studies that have been ordered have been reviewed, and results considered in the medical decision making process. Abdominal Pain Fem Course/Dx - Course Course Of Treatment: Pt is a 46 y/o female BIBA sent from who presents to the ED c/o right-sided abdominal pain. She states the pain began 3 days ago, but became worse today while at work. Pt also c/o dry heaving, dizziness, near- syncope, sore throat, leg cramping, and a mild headache. She denies any fever, chills, blurred vision, diplopia, ear ache, CP, SOB, neck pain, hematuria, hematochezia, vomiting, diarrhea, rash, right flank pain, LE edema, or bruising. A physical exam revealed right mid-lateral tenderness, mild right flank tenderness. Final dx are renal calculi, appendicitis, colitis, and constipation. Awaiting CT A/P. Signed out to Dr. Mcfarlane. - Diagnoses Provider Diagnoses: Renal calculi, Colitis, Constipation, Appendicitis Discharge - Sign-Out/Discharge Documenting (check all that apply): Sign-Out Patient Signing out patient TO: Avery Mcfarlane - Discharge Plan Referrals: Trudy Renner MD [Primary Care Provider] - - Attestation Statements Document Initiated by Scribe: Yes Documenting Scribe: Kacie Diaz Provider For Whom Emilyibkrish is Documenting (Include Credential): Kathrin Lobo MD Scribe Attestation: Kacie House, scribed for Kathrin Lobo MD on 10/20/17 at 1857. Scribe Documentation Reviewed: Yes Provider Attestation: The documentation as recorded by the Kacie downey accurately reflects the service I personally performed and the decisions made by me, Kathrin Lobo MD
[2017-10-20 18:30] LABS: EGFR Non-African American 91.2 (>60)
--- NOTE | 2017-10-20 19:08 | ED ---
Progress - Progress Note Progress Note: Patient was received as a sign out from Dr. Lobo to Dr. Mcfarlane at 1900, 10/20 Ct abd/pel impressions: the appendix is unremarkable, no visible renal, ureteral , or bladder calculi, there may be a 1.7 cm left ovarian cyst. This report was reviewed by ED physician. 1956 re-eval: patient has vague mid abdominal pain, but reports it has decreased during ED stay. Hx of ovarian cysts, CT shows left ovarian cyst. She will be discharge to home and follow up with Guerita Martin. She is agreeable with this plan. Re-Evaluation - Re-Evaluation First Eval Re-Evaluation Time: 19:57 Change: Improved Comment: Patient has vague mid abdominal pain, but reports it has decreased during ED stay. Hx of ovarian cysts, CT shows left ovarian cyst. She will be discharge to home and follow up with Guerita Martin. She is agreeable with this plan. Course/Dx - Course Course Of Treatment: Pt is a 46 y/o female BIBA sent from who presents to the ED c/o right-sided abdominal pain. She states the pain began 3 days ago, but became worse today while at work. Pt also c/o dry heaving, dizziness, near- syncope, sore throat, leg cramping, and a mild headache. She denies any fever, chills, blurred vision, diplopia, ear ache, CP, SOB, neck pain, hematuria, hematochezia, vomiting, diarrhea, rash, right flank pain, LE edema, or bruising. A physical exam revealed right mid-lateral tenderness, mild right flank tenderness. Final dx are renal calculi, appendicitis, colitis, and constipation. Awaiting CT A/P. Signed out to Dr. Mcfarlane. - Diagnoses Provider Diagnoses: Ovarian cyst, left, Acute abdominal pain Discharge - Sign-Out/Discharge Documenting (check all that apply): Patient Departure - discharge , Receiving Sign-Out Signing out patient TO: Avery Mcfarlane Receiving patient FROM: Kathrin Lobo - Discharge Plan Condition: Improved Disposition: HOME Prescriptions: Naproxen [Naproxen 500 mg tab] 500 mg PO BID PRN #6 tablet PRN Reason: abdominal pain Patient Education Materials: Ovarian Cyst (ED) Referrals: Guerita Martin VIRTUALIZATION ARCHITECT [Nurse Practitioner] - Trudy Renner MD [Primary Care Provider] - Additional Instructions: Call Jesusita eubanks first thing in the morning to schedule more prompt follow- up. Return with fever, increased pain, worse, new symptoms or other concerns as discussed. - Billing Disposition and Condition Condition: IMPROVED Disposition: Home - Attestation Statements Document Initiated by Bradlye: Yes Documenting Scribe: Ishmael Díaz Provider For Whom Emilyibe is Documenting (Include Credential): Avery Mcfarlane MD Scribe Attestation: IIshmael, scribed for Avery Mcfarlane MD on 10/21/17 at 0614. Scribe Documentation Reviewed: Yes Provider Attestation: The documentation as recorded by the Ishmael downey accurately reflects the service I personally performed and the decisions made by me, Avery Mcfarlane MD
--- NOTE | 2017-10-20 19:52 | RAD ---
EXAM: CT Abdomen and Pelvis Without Intravenous Contrast CLINICAL HISTORY: 46 years old, female; Pain; Abdominal pain; Flank; Right; Additional info: Right flank pain radiating to rlq TECHNIQUE: Axial computed tomography images of the abdomen and pelvis without intravenous contrast. All CT scans at this facility use at least one of these dose optimization techniques: automated exposure control; mA and/or kV adjustment per patient size (includes targeted exams where dose is matched to clinical indication); or iterative reconstruction. Coronal and sagittal reformatted images were created and reviewed. COMPARISON: A/P W CT ABD/PEL W 06/27/2016 1:18 AM FINDINGS: Lung bases: Unremarkable. No mass. No consolidation. ABDOMEN: Liver: Stable hepatomegaly. Gallbladder and bile ducts: Stable postoperative changes of cholecystectomy. No ductal dilation. Pancreas: Unremarkable. No ductal dilation. Spleen: Stable borderline splenomegaly. Adrenals: Unremarkable. No mass. Kidneys and ureters: Unremarkable. No obstructing stones. No hydronephrosis. Stomach and bowel: Stable postoperative changes of gastric bypass surgery. No obstruction. No mucosal thickening. PELVIS: Appendix: The appendix is unremarkable. The appendix is seen best on axial image 129 of series 4. Bladder: Unremarkable. No stones. Reproductive: There may be a 1.7 cm left ovarian cyst. ABDOMEN and PELVIS: Intraperitoneal space: Unremarkable. No free air. No significant fluid collection. Bones/joints: Stable mild degenerative changes of the spine. No acute fracture. No dislocation. Soft tissues: Unremarkable. Vasculature: Stable calcified phleboliths in the pelvis. No abdominal aortic aneurysm. Lymph nodes: Unremarkable. No enlarged lymph nodes. IMPRESSION: 1. The appendix is unremarkable. 2. No visible renal, ureteral or bladder calculi. 3. There may be a 1.7 cm left ovarian cyst.
[2017-10-20] MEDS ORDERED: HYDROcodone/ACETAMIN 5-325 MG* 1 TAB PO ONE (19:58)
[2017-10-20 20:28] VITALS: BP 156/96
== END 2017-10-20 20:27 | disposition home or self-care (01) ==
LOC: ED 17:25
DX: N83.202 Unspecified ovarian cyst, left side (principal); R10.9 Unspecified abdominal pain
CPT/HCPCS: 36415; 74176; 80053; 83605; 83690; 85025; 96374; 96375; 99282; J1885; J2405

== ENCOUNTER 2017-11-03 15:31 | Observation (INO) | payer BC ==
--- NOTE | 2017-11-03 16:18 | RAD ---
Indication: Slurred speech. CT of the brain performed without IV contrast. No prior study is available for comparison. Ventricular structures are midline. No midline shift is noted. The extra-axial spaces are unremarkable. There is no evidence of intracranial mass or hemorrhage. Hypodensity is noted in the deep white matter in the right frontal lobe. This likely represents old infarct. Mastoid air cells and paranasal sinuses are unremarkable. IMPRESSION: Hypodensity in the deep white matter in the right frontal lobe. No intracranial hemorrhage is noted.
--- NOTE | 2017-11-03 20:36 | ED ---
Neurological HPI - HPI Summary HPI Summary: The patient is a 46 y/o F presenting to [facility] with a chief complaint of slurred speech and slight disorientation starting three days ago and constantly continuing into today. 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 She also reports excess saliva discharging from her mouth and a slight facial droop on the left side. She denies having difficulty with focusing, vision changes, and weakness or strength changes in all four extremities. Her symptoms have not been improved or worsened since onset. She additionally c/o of lethargy and a diffuse headache. She is not currently in any pain, and the pain is not aggravated or alleviated by anything. She has no prior history of these symptoms. She currently takes Lisinopril for HTN, Lexapro for depression, and Trulicity for diabetes. She has FHx of silent strokes, cardiac disease, and respiratory disease in her father. Nonsmoker. She notes that she has been exposed to ticks from her dog at home. - History of Current Complaint Chief Complaint: EDNeurologicalDeficit Stated Complaint: SLURRED SPEECH/DROOLING Hx Obtained From: Patient Hx Last Menstrual Period: 4 months ago Onset/Duration: Sudden Onset, Started days ago - three days, Still Present Timing: Constant Onset Severity: Moderate Current Severity: Moderate Neurological Deficit Location: Generalized - some left facial drooping with general disorientation and slurred speech Headache Location: Diffuse (Right), Diffuse (Left) Pain Intensity: 0 Pain Scale Used: 0-10 Numeric Character: Impaired Speech, Other: - disorientation Aggravating: Nothing Alleviating: Nothing Associated Signs and Symptoms: Positive: Headache - diffuse, Impaired Speech - slurred, unable to decide which words to use. Negative: Visual Changes, Weakness - in any of the four extremities - Allergy/Home Medications Allergies/Adverse Reactions: Allergies Allergy/AdvReac Type Severity Reaction Status Date / Time shellfish derived Allergy Severe Anaphylatic Verified 11/03/17 20:22 Shock metformin AdvReac Severe Diarrhea Verified 11/03/17 20:22 PMH/Surg Hx/FS Hx/Imm Hx Endocrine/Hematology History: Reports: Hx Diabetes - DIET CONTROL type 2, Hx Anemia Denies: Hx Thyroid Disease Cardiovascular History: Reports: Hx Hypertension - WELL CONTROLLED Denies: Hx Congestive Heart Failure, Hx Pacemaker/ICD, Other Cardiovascular Problems/Disorders Respiratory History: Denies: Hx Asthma, Hx Chronic Obstructive Pulmonary Disease (COPD), Other Respiratory Problems/Disorders GI History: Reports: Other GI Disorders - 2009-FLOATING INTERNAL HERNIA STATES WAS FIXED Denies: Hx Ulcer History: Denies: Hx Renal Disease, Other Problems/Disorders Musculoskeletal History: Reports: Hx Arthritis - hands and shoulders Denies: Other Musculoskeletal History Sensory History: Reports: Hx Contacts or Glasses - both- will wear glasses day of surgery Denies: Hx Cataracts, Hx Hearing Aid Opthamlomology History: Reports: Hx Contacts or Glasses - both- will wear glasses day of surgery Denies: Hx Cataracts Neurological History: Reports: Hx Migraine - IN THE PAST- been a long time since last one Denies: Other Neuro Impairments/Disorders Psychiatric History: Reports: Hx Anxiety Denies: Hx Panic Disorder - Cancer History Hx Chemotherapy: No - Surgical History Surgery Procedure, Year, and Place: Right Index Finger 09/07/13,. 06/03 R HAND, 5TH DIGIT, W/ PIN; GANGLION CYST - REMOVED FROM MIDDLE FINGER. 09/2009 & LEFT SHOULDER BONE SPUR , 10/2012, LEFT SHOULDER, [facility] ( DISLOCATED-SEPERATED FROM A FALL). 12/20/09 HERNIA,. 04/2017-LEFT SHOULDER SURGERY. 12/30 GASTRIC BYPASS,. gall bladder removed 2015. 11/22 & 11-24 GANGLION CYSTS,. JRAETT CARPAL TUNNEL. LEFT 5th finger trigger release 08/2014 Hx Anesthesia Reactions: Yes - will develop severe nausea with anesthesia- scopalamine patch works - Immunization History Date of Tetanus Vaccine: UTD Date of Influenza Vaccine: 2013 Immunizations Up to Date: Yes Infectious Disease History: No Infectious Disease History: Denies: Hx Clostridium Difficile, Hx Hepatitis, Hx Human Immunodeficiency Virus (HIV), Hx of Known/Suspected MRSA, Hx Shingles, Hx Tuberculosis, Hx Known/ Suspected VRE, Hx Known/Suspected VRSA, History Other Infectious Disease, Traveled Outside the [place] in Last 30 Days - Family History Known Family History: Positive: Cardiac Disease, Hypertension, Diabetes, Respiratory Disease - in father, Other - ARTHRITIS; OBESITY, silent strokes in father - Social History Alcohol Use: Rare Alcohol Amount: 2-3 TIMES A YEAR Hx Substance Use: No Substance Use Type: Reports: None Hx Tobacco Use: No Smoking Status (MU): Never Smoked Tobacco Have You Smoked in the Last Year: No Review of Systems Positive: Other - lethargy ENT: Other - increased saliva discharging from mouth Positive: Other - NEGATIVE: decreased strength changes in any of the four extremities Neurological: Other - POSITIVE: slight facial droop on the left side; NEGATIVE: difficulty focusing, confusion Positive: Headache - diffuse, Weakness - in any of the four extremities , Slurred Speech - difficulty deciding which words to use, mixing up numbers All Other Systems Reviewed And Are Negative: Yes Physical Exam - Summary Physical Exam Summary: Appearance: Well-appearing, Well-nourished, lying in bed comfortably Skin: Warm, dry, no obvious rash Eyes: sclera anicteric, no conjunctival pallor ENT: mucous membranes moist, pharynx appears normal Neck: Supple, nontender Respiratory: Clear to auscultation, no signs of respiratory distress Cardiovascular: Normal S1, S2. No murmurs. Normal distal pulses in tibial and radial bilaterally. Abdomen: Soft, nontender, normal active bowel sounds present Musculoskeletal: Normal, Strength/ROM Intact Neurological: A&Ox3, awake and alert, mentation is normal, speech is fluent and appropriate, Left facial paresis that appears to spare the forehead, Balance is good, Romberg test is negative, Gait is normal, Strength in extremities is normal, no sensory complaints Psychiatric: affect is normal, does not appear anxious or depressed Triage Information Reviewed: Yes Vital Signs On Initial Exam: Initial Vitals Temp Pulse Resp BP Pulse Ox 96.8 F 95 12 189/95 96 11/03/17 15:33 11/03/17 15:33 11/03/17 15:33 11/03/17 15:33 11/03/17 15:33 Vital Signs Reviewed: Yes - Landis Coma Scale Best Eye Response: 4 - Spontaneous Best Motor Response: 6 - Obeys Commands Best Verbal Response: 5 - Oriented Coma Scale Total: 15 Diagnostics - Vital Signs Vital Signs Temp Pulse Resp BP Pulse Ox 11/03/17 19:17 98.1 F 95 16 189/96 97 11/03/17 15:33 96.8 F 95 12 189/95 96 - Laboratory Result Diagrams: 11/03/17 20:34 11/03/17 20:34 Lab Statement: Any lab studies that have been ordered have been reviewed, and results considered in the medical decision making process. - CT Brain CT CT Interpretation Completed By: Radiologist Re-Evaluation - Re-Evaluation First Eval Re-Evaluation Time: 20:20 Change: Unchanged Comment: I spoke with the pt about Brain CT results and the need for an MRI, as requested by Dr. Arguello, neurologist. Patient understands and agrees to this plan. Third Eval Re-Evaluation Time: 21:44 Change: Unchanged Comment: I spoke with the pt concerning MRI results and Dr. Arguello's recommendations for admission to the hospital. Patient understands the need for admission and agrees to this plan. Course/Dx - Diagnoses Provider Diagnoses: CVA (cerebral vascular accident) - Physician Notifications Discussed Care Of Patient With: Tish Arguello Time Discussed With Above Provider: 20:18 Instructed by Provider To: Other - I consulted with Dr. Arguello, neurologist, who recommends that the pt gets an MRI for further clarification if the neurological deficit is central or peripheral. I spoked with Dr. Arguello at 21:40 who reports that the MRI is positive for a stroke. Patient will be admitted to [facility] for further care as accepted by Dr. Fatima, hospitalist, at 22:00. Discharge - Sign-Out/Discharge Documenting (check all that apply): Patient Departure - Patient will be admitted to [facility] for further care. All imaging exams completed and their final reports reviewed: Yes - Discharge Plan Condition: Guarded Disposition: ADMITTED TO [facility] - Billing Disposition and Condition Condition: GUARDED Disposition: Admitted to [facility] - Attestation Statements Document Initiated by Emilyibe: Yes Documenting Scribe: Odalis Ward Provider For Whom Carter is Documenting (Include Credential): Dr. Miguel Fitzgerald MD Scribe Attestation: Odalis House scribed for Dr. Miguel Fitzgerald MD on 11/03/17 at 2334. Scribe Documentation Reviewed: Yes Provider Attestation: The documentation as recorded by the Odalis downey accurately reflects the service I personally performed and the decisions made by me, Dr. Miguel Fitzgerald MD
[2017-11-03 20:46] LABS: ABS Basophils 0.1 10^3/ul (0-0.2); ABS Eosinophils 0.2 10^3/ul (0-0.6); ABS Lymphocytes 2.2 10^3/ul (1.0-4.8); ABS Monocytes 0.4 10^3/ul (0-0.8); ABS Neutrophils 4.8 10^3/ul (1.5-7.7); ABS Nucleated RBC 0 10^3/ul; Eosinophil % 2.7 % (0-6); Hematocrit 32 % (35-47); Hemoglobin 10.7 g/dl (12.0-16.0); Lymphocyte % 28.5 % (25-47); Mean Corpuscular HGB Conc 33 g/dl (31-36); Mean Corpuscular Hemoglobin 28 pg (27-31); Mean Corpuscular Volume 84 fL (80-97); Mean Platelet Volume 8.5 um3 (7.4-10.4); Nucleated Red Blood Cells % 0; Platelet Count 399 10^3/ul (150-450); Red Blood Count 3.84 10^6/ul (4.00-5.40); Red Cell Distribution Width 16 % (10.5-15); White Blood Count 7.7 10^3/ul (3.5-10.8)
[2017-11-03 21:02] LABS: EGFR Non-African American 91.2 (>60)
--- NOTE | 2017-11-03 21:40 | RAD ---
EXAM: MR Head Without Intravenous Contrast EXAM DATE/TIME: 11/03/2017 9:13 PM CLINICAL HISTORY: 46 years old, female; Signs and symptoms; Speech disturbance and weakness, facial; Slurred speech; Patient HX: C/O slurred speech and facial droop since wednesday; Additional info: Left facial droop, unclear if central or peripheral TECHNIQUE: Magnetic resonance images of the head/brain without intravenous contrast in multiple planes. COMPARISON: No relevant prior studies available. FINDINGS: Ventricles demonstrate normal size and configuration. Major vascular flow voids at the skull base are preserved. No extra-axial fluid collection. No pathologic susceptibility. Diffusion restriction at the right alvarado radiata measuring 1.6 cm. Associated T2 prolongation. Visualized paranasal sinuses and mastoid air cells are clear. IMPRESSION: 1.6 cm acute to early subacute (likely early subacute) ischemic infarct involving the right coronal radiata.
[2017-11-03] MEDS ORDERED: Ondansetron INJ* 2 MG/ML VIAL IV PRN (22:11)
[2017-11-03] MEDS ORDERED: hydrALAZINE IV* 20 MG/ML VIAL IV SLOW PU PRN (22:11)
[2017-11-03] MEDS ORDERED: Acetaminophen TAB* 325 MG PO PRN (22:11)
[2017-11-03] MEDS ORDERED: Atorvastatin* 80 MG TAB PO ONE (22:12)
[2017-11-03] MEDS ORDERED: Dextrose 50% Syringe 50 ML* 25 GM/50 ML SYRINGE IV PUSH PRN (22:14)
[2017-11-03] MEDS ORDERED: Iodixanol* (CONTRAST) 320 MG/ML 100 ML SDV IV ONE (22:18)
--- NOTE | 2017-11-03 23:02 | RAD ---
EXAM: CT Angiography Head With Intravenous Contrast CLINICAL HISTORY: 46 years old, female; Signs and symptoms; Dizziness and giddiness; Additional info: CVA TECHNIQUE: Axial computed tomographic angiography images of the head with intravenous contrast using CT angiography protocol. All CT scans at this facility use at least one of these dose optimization techniques: automated exposure control; mA and/or kV adjustment per patient size (includes targeted exams where dose is matched to clinical indication); or iterative reconstruction. 3D and MIP reconstructed images were created and reviewed. Coronal and sagittal reformatted images were created and reviewed. CONTRAST: 80 mL of Visi administered intravenously. COMPARISON: No relevant prior studies available. FINDINGS: Right internal carotid artery: Mild calcification involving the right carotid siphon without significant stenosis. No aneurysm. Right anterior cerebral artery: Unremarkable. No occlusion or significant stenosis. No aneurysm. Right middle cerebral artery: Unremarkable. No occlusion or significant stenosis. No aneurysm. Right posterior cerebral artery: origin of the right posterior cerebral artery. No occlusion or significant stenosis. No aneurysm. Right vertebral artery: Unremarkable as visualized. Left internal carotid artery: Mild calcification involving the left carotid siphon without significant stenosis. No aneurysm. Left anterior cerebral artery: Unremarkable. No occlusion or significant stenosis. No aneurysm. Left middle cerebral artery: Unremarkable. No occlusion or significant stenosis. No aneurysm. Left posterior cerebral artery: Unremarkable. No occlusion or significant stenosis. No aneurysm. Left vertebral artery: Unremarkable as visualized. Basilar artery: Unremarkable. No occlusion or significant stenosis. No aneurysm. IMPRESSION: No hemodynamically significant stenosis or large vessel occlusion. EXAM: CT Angiography Neck With Intravenous Contrast EXAM DATE/TIME: 11/03/2017 10:37 PM CLINICAL HISTORY: 46 years old, female; Signs and symptoms; Dizziness and giddiness; Additional info: CVA TECHNIQUE: Axial computed tomographic angiography images of the neck with intravenous contrast using CT angiography protocol. All CT scans at this facility use at least one of these dose optimization techniques: automated exposure control; mA and/or kV adjustment per patient size (includes targeted exams where dose is matched to clinical indication); or iterative reconstruction. 3D and MIP reconstructed images were created and reviewed. Coronal and sagittal reformatted images were created and reviewed. CONTRAST: 80 mL of Visi administered intravenously. 80 mL of Visi administered intravenously. COMPARISON: BRAIN WO MRI BRAIN W/O 11/03/2017 9:06 PM FINDINGS: VASCULATURE: Right common carotid artery: Unremarkable. No significant stenosis. No dissection or occlusion. Right internal carotid artery: Mild calcification involving the proximal right cervical ICA without hemodynamically significant stenosis. No dissection or occlusion. Right external carotid artery: Unremarkable. No occlusion. Right vertebral artery: Unremarkable. No significant stenosis. No dissection or occlusion. Left common carotid artery: Mild atheromatous plaquing of the left common carotid bifurcation without hemodynamically significant No significant stenosis. No dissection or occlusion. Left internal carotid artery: Mild calcification of the proximal left cervical ICA without hemodynamically significant stenosis No dissection or occlusion. Left external carotid artery: Unremarkable. No occlusion. Left vertebral artery: Unremarkable. No significant stenosis. No dissection or occlusion. NECK: Bones/joints: No acute fracture. No dislocation. Soft tissues: Unremarkable as visualized. No mass. Thyroid: 7 mm left thyroid nodule and 9 mm right thyroid nodule. CAROTID STENOSIS REFERENCE USING NASCET CRITERIA: % ICA stenosis = (1 - narrowest ICA diameter/diameter of distal cervical ICA) x 100. Mild - <50% stenosis. Moderate - 50-69% stenosis. Severe - 70-94% stenosis. Near occlusion - 95-99% stenosis. Occluded - 100% stenosis. IMPRESSION: No hemodynamically significant stenosis.
[2017-11-04] MEDS: Aspirin 81 mg CHEW TAB* 81 MG TAB.CHEW PO SCH ×2 (00:18→08:47)
--- NOTE | 2017-11-04 00:55 | HP ---
CC: Dr. Renner; Dr. Arguello * HISTORY AND PHYSICAL: DATE OF ADMISSION: 11/03/17 PRIMARY CARE PROVIDER: Dr. Renner ATTENDING PHYSICIAN WHILE IN THE HOSPITAL: Dr. Roxanne Fraser * (report dictated by Rosendo Fatima NP) CONSULTING NEUROLOGIST: Dr. Arguello CHIEF COMPLAINT: 1. Difficulty with speech. 2. Left facial droop. HISTORY OF PRESENT ILLNESS: Mrs. Alvares is a 46-year-old female patient. She has a history of diabetes, hyperlipidemia, hypertension, anxiety, also carries a history of arthritis. She presents to our emergency department today stating that she has been since Wednesday noted that when she got to work, she is having trouble with her speech. She had to think more to say her words. They were not coming out clearly. They were slurred at times. She thought that she was just over tired. She noted that she has a slight facial droop again, thinking that she was tired, but she noted that throughout the last few days, the symptoms were not getting any better. She continued to have this difficulty with the speech. She has continued to have the slurrying of words. She noted that she was having trouble with her saliva pocketing in the left side of her mouth. She denied having any chest pain. She denied having any shortness of breath or any abdominal pain. She denied any recent fevers, chills, or chest pain or palpitations. She denied having any weakness to one arm or one leg. Denied having any trouble with her gait, but she was concerned because the symptoms were not getting any better. She came into the ED today after she was prompted to come here by her PCP. She was evaluated with MRI and was noted that she had a what appeared to be a new acute infarct most likely happening on Wednesday. Because of these findings we were asked to evaluate for admission. PAST MEDICAL HISTORY: Significant for: 1. Diabetes. 2. Hypertension. 3. Anxiety. 4. Arthritis. 5. Hyperlipidemia. PAST SURGICAL HISTORY: 1. She has had laparoscopic cholecystectomy. 2. Gastric bypass. 3. Internal hernia repair. 4. Left shoulder surgery x5. 6. Rotator cuff repairs. 7. Carpal tunnel in bilateral upper extremities. 8. Right shoulder surgery. MEDICATIONS: Home meds according to the list that was provided include: 1. Multivitamin 1 tablet p.o. b.i.d. 2. Folic acid 1 mg p.o. daily. 3. B12 500 mcg p.o. daily. 4. Vitamin D 2000 units p.o. daily. 5. Calcium carbonate 1000 mg p.o. q.a.m. 6. Tylenol 650 mg p.o. every 6 hours as needed. 7. Lisinopril 20 mg p.o. daily. 8. Lexapro 20 mg daily. 9. Trulicity 0.75 mg subcu weekly. ALLERGIES TO MEDICATIONS: Include METFORMIN and SHELLFISH. FAMILY HISTORY: Her mother was healthy according to the patient. Father had a history of CVA, CAD, and hypertension. SOCIAL HISTORY: She does not smoke. Does not drink. 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 Surrogate decision maker are her parents and her friend, Delfina. REVIEW OF SYSTEMS: There is no documented fever. She denied having any significant weight change. There was no double vision. She denies having any ear discharge. There was no rhinorrhea. There was no sore throat. No thyroid enlargement. She is denying having any chest pain. There was no orthopnea. There was no nocturnal dyspnea. No abdominal pain. No nausea, no vomiting. No dysuria, no frequency. No seizure, no loss of consciousness. No pruritus and no skin ulcerations. Review of 14 systems completed, all others negative. PHYSICAL EXAMINATION GENERAL: Ms. Alvares is a 46-year-old female patient. She is morbidly obese. She is sitting in the ED stretcher. She does not appear to be in any acute distress. VITAL SIGNS: Blood pressure 189/96, pulse 95, respirations 16, O2 sat 97%, temperature 98.1. HEENT: Head is atraumatic and normocephalic. Eyes: EOMs are intact. Sclerae are anicteric and not pale. Throat: Oral mucosa appears to be moist. No oropharyngeal erythema. NECK: Supple. LUNGS: Clear to auscultation bilaterally. No wheezes, rales, or rhonchi. HEART: Sounds S1, S2. She had a regular rate and rhythm. No murmurs, rubs, or gallops. ABDOMEN: Soft, flat, nontender. Bowel sounds were present. EXTREMITIES: Pulses were 2+ throughout. She is moving all 4 extremities with 5 /5 strength. She had no peripheral edema. NEUROLOGICAL: She is awake. She is alert. She does have a subtle facial droop on the left side. There is some mild dysarthria and mild slurring of the words when she is talking. She had a [id number] intact bilaterally. She had no pronator drift. She had heel-to-toe walking was steady. Her gait appeared to be steady. Esgo-tr-rgru intact bilaterally. She had 5/5 strength. Lower extremity sensation was intact bilaterally. Pupils were equal and reactive to light. Her visual lynn were intact. She had no facial numbness on my exam, but she did have subtle facial drooping to left side only. SKIN: Intact. DIAGNOSTIC STUDY/LABORATORY DATA: WBC of 7.7, RBC of 3.84, hemoglobin of 10.7 , hematocrit of 32, platelet count of 399. Sodium was 140, potassium 4.3, chloride of 107, bicarb 25, BUN 13, creatinine of 0.69, glucose of 120, calcium 9.3. Total bili 0.2, AST 18, ALT 15, alk phos 91, albumin was 4.6. She did have brain CT initially done today which showed hypodensity in the deep white matter. In the right frontal lobe, no intracranial hemorrhage was noted. She did have a brain MRI done today which revealed a 1.6 cm acute to likely early subacute ischemic infarct involved in the right corneal radius. Old medical records were reviewed. ASSESSMENT AND PLAN: Mrs. Alvares is a 46-year-old female patient coming into the ED today with complaints of facial droop and dysarthria. On evaluation, found to have cerebrovascular accident. She will be admitted under observation status for: 1. Cerebrovascular accident. At this point, she did pass bedside swallow evaluation. Again the only focal deficit is the facial droop. I will check lipid panel, A1c. Start her on aspirin high dose statin therapy. I have ordered p.r.n. hydralazine for blood pressure control, if she gets over the systolics of 200. If she remains consistently in 180s, 190s, I would probably start her on low dose Norvasc to try to keep her between 140 and 180 for her systolics. Given that the stroke probably happened 3 days ago, I will check a hypercoagulable panel as well which has been sent. I am getting a CTA head and neck. Dr. Arguello will be evaluating the patient tomorrow. I have ordered frequent neuro checks. We will place her on telemetry. I am getting a baseline EKG right now and we will continue to follow her closely. I am also checking coags. 2. Diabetes. We will check an A1c, put her on the lispro sliding scale. 3. Hypertension. Again, try to keep her between 140 and 180. She is 189 right now. If she remains 180 to 190, I probably will start small dose Norvasc. I have ordered p.r.n. hydralazine for systolics greater than 200 and diastolics greater than 100. 4. Anxiety. Continue supportive care. 5. History of hyperlipidemia. I am checking a lipid panel. I did put her on high dose statin in the setting of acute cerebrovascular accident. 6. Arthritis. Continue p.r.n. Tylenol and medications as prescribed. I will avoid NSAIDs for the time being. 7. DVT prophylaxis. She is 3 days probably out from the stroke, so I have gone ahead and started her on a heparin subcu. 8. Code status. She is full code. 9. Fluids, electrolytes, nutrition. She passed the bedside swallow evaluation down here, I will continue with consistent carb diet. TIME SPENT: On the admission was 60 minutes; greater than half the time was spent [id number] with the patient obtaining my history and physical, other half time was spent going over the plan of care with the patient and implementing plan of care. I did discuss the plan of care with my attending, Dr. Fraser, she is in agreement. ROSENDO FATIMA, VINNIE [id number]/CPS #: [id number] MIKE
--- NOTE | 2017-11-04 03:23 | ED ---
Progress - Results/Orders Results/Orders: Brain CT: Hypodensity in the the deep white matter in the right frontal lobe. No hemorrhaging noted. ED physician has reviewed this report. Brain MRI: 1.6cm acute to early subacute ischemic infarct involving the right alvarado radiata. ED physician has reviewed this report. Re-Evaluation - Re-Evaluation First Eval Re-Evaluation Time: 20:20 Change: Unchanged Comment: I spoke with the pt about Brain CT results and the need for an MRI, as requested by Dr. Arguello, neurologist. Patient understands and agrees to this plan. Third Eval Re-Evaluation Time: 21:44 Change: Unchanged Comment: I spoke with the pt concerning MRI results and Dr. Arguello's recommendations for admission to the hospital. Patient understands the need for admission and agrees to this plan. Second Eval Re-Evaluation Time: 21:44 Change: Unchanged Comment: I spoke with the pt concerning MRI results and Dr. Arguello's recommendations for admission to the hospital. Patient understands the need for admission and agrees to this plan. Course/Dx - Course Course Of Treatment: The patient is a 46 y/o F presenting to [facility] with a chief complaint of slurred speech and slight disorientation starting three days ago and constantly continuing into today. 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 She also reports excess saliva discharging from her mouth and a slight facial droop on the left side. She denies having difficulty with focusing, vision changes, and weakness or strength changes in all four extremities. Her symptoms have not been improved or worsened since onset. She additionally c/o of lethargy and a diffuse headache. She is not currently in any pain, and the pain is not aggravated or alleviated by anything. She has no prior history of these symptoms. She currently takes Lisinopril for HTN, Lexapro for depression, and Trulicity for diabetes. She has FHx of silent strokes, cardiac disease, and respiratory disease in her father. Nonsmoker. She notes that she has been exposed to ticks from her dog at home. The physical exam reveals a left facial paresis that appears to spare the forehead. In the ED course, the pt was given Lipitor and Visipaque. Lab results reveal a slightly increased glucose level. Brain CT reveals hypodensity in the the deep white matter in the right frontal lobe. MRI reveals 1.6cm acute to early subacute ischemic infarct involving the right alvarado radiata. I consulted with Dr. Arguello who agrees that the patient had experienced a CVA. The patient will be admitted to [facility] for further care by Dr. Fraser. Patient understands the need for admission and agrees to this plan. - Diagnoses Provider Diagnoses: CVA (cerebral vascular accident) - Provider Notifications Time Discussed With Above Provider: 20:18 Instructed by Provider To: Other - I consulted with Dr. Arguello, neurologist, who recommends that the pt gets an MRI for further clarification if the neurological deficit is central or peripheral. I spoked with Dr. Arguello at 21:40 who reports that the MRI is positive for a stroke. Patient will be admitted to [facility] for further care as accepted by Dr. Fatima, hospitalist, at 22:00. Discharge - Sign-Out/Discharge Documenting (check all that apply): Patient Departure - Patient will be admitted to [facility] for further care. All imaging exams completed and their final reports reviewed: Yes - Discharge Plan Condition: Guarded Disposition: ADMITTED TO [facility] - Billing Disposition and Condition Condition: GUARDED Disposition: Admitted to [facility] - Attestation Statements Document Initiated by Carter: Yes Documenting Scribe: Odalis Ward Provider For Whom Carter is Documenting (Include Credential): Dr. Miguel Fitzgerald MD Scribe Attestation: Odalis House scribed for Dr. Miguel Fitzgerald MD on 11/04/17 at 0345. Scribe Documentation Reviewed: Yes Provider Attestation: The documentation as recorded by the Odalis downey accurately reflects the service I personally performed and the decisions made by me, Dr. Miguel Fitzgerald MD
[2017-11-04] MEDS: Heparin VIAL(*) 5000 UNITS/ML VIAL (FIVE THOUSAND) SUBCUT SCH ×2 (06:15→14:30)
[2017-11-04 07:00] LABS: ABS Basophils 0 10^3/ul (0-0.2); ABS Eosinophils 0.2 10^3/ul (0-0.6); ABS Monocytes 0.5 10^3/ul (0-0.8); ABS Neutrophils 4.8 10^3/ul (1.5-7.7); ABS Nucleated RBC 0 10^3/ul; Eosinophil % 2.8 % (0-6); Hematocrit 30 % (35-47); Hemoglobin 9.8 g/dl (12.0-16.0); Lymphocyte % 26.8 % (25-47); Mean Corpuscular HGB Conc 33 g/dl (31-36); Mean Corpuscular Hemoglobin 28 pg (27-31); Mean Corpuscular Volume 83 fL (80-97); Nucleated Red Blood Cells % 0; Platelet Count 325 10^3/ul (150-450); Red Blood Count 3.55 10^6/ul (4.00-5.40); Red Cell Distribution Width 15 % (10.5-15); White Blood Count 7.6 10^3/ul (3.5-10.8)
[2017-11-04 07:13] LABS: INR 0.93 (0.77-1.02)
[2017-11-04] MEDS: Insulin LISPRO* 1 UNITS UNIT SUBCUT SCH ×2 (07:48→12:40)
[2017-11-04] MEDS ORDERED: Calcium Carbonate TAB* 1250 MG (CALCIUM 500 MG) PO SCH (09:00)
[2017-11-04] MEDS ORDERED: Lisinopril TAB* 10 MG PO SCH (09:00)
[2017-11-04] MEDS ORDERED: Prenatal Vitamin TAB PO SCH (09:00)
[2017-11-04] MEDS ORDERED: Folic Acid TAB* 1 MG PO SCH (09:00)
[2017-11-04] MEDS ORDERED: Citalopram TAB* 40 MG PO SCH (09:00)
[2017-11-04] MEDS ORDERED: Perflutren Lipid Microsphere* 3 ML VIAL ONE (10:14)
--- NOTE | 2017-11-04 15:15 | ECHO ---
Patient: CATARINO HOLLEY [facility] Rec#: [id number] : 1970 Date: 11/04/2017 Age: 46y Height: 173 cm / 68.1 in Weight: 97.98 kg / 215.9 lbs Sex: F BSA: 2.11 Room#: 453 Admit Date#: 11/03/2017 Type: Inpatient Referring: Rosendo Fatima NP Reading: Delia Lopez MD [employer]: Suzie Smith RDCS CC: Trudy Renner MD Transthoracic Echocardiogram Indication: CVA BP: 184/87 HR: 79 Rhythm: NSR Findings History: DM, HTN, HLD. Technical Comments: The study is technically limited due to poor acoustic windows. Completed at 1100. Left Ventricle: The left ventricular chamber size is normal. There is no left ventricular hypertrophy. Global left ventricular wall motion and contractility are within normal limits. There is normal left ventricular systolic function. The estimated ejection fraction is 55-60%. Abnormal left ventricular diastolic function is observed. Left Atrium: The left atrium is mildly dilated. Right Ventricle: Moderator Band present. The right ventricular cavity size is normal. The right ventricular global systolic function is normal. Right Atrium: The right atrium is mildly dilated. Interatrial septum appears intact without evidence of shunting. The bubble study is negative. A patent foramen ovale is not demonstrated with color Doppler and agitated contrast. Aortic Valve: The aortic valve is trileaflet. There is no evidence of aortic valve thickening. There is a trace of aortic regurgitation. There is no evidence of aortic stenosis. Mitral Valve: There is mitral annular calcification. The mitral valve leaflets are mildly thickened. There is a trace of mitral regurgitation. There is no evidence of mitral stenosis. Tricuspid Valve: The tricuspid valve leaflets are normal. There is a physiologic tricuspid regurgitation. Unable to estimate the right ventricular systolic pressure. There is no tricuspid stenosis. Pulmonic Valve: The pulmonic valve appears normal. There is a trace pulmonic regurgitation. There is no pulmonic stenosis. Pericardium: There is no significant pericardial effusion. A pericardial fat pad is visualized. Aorta: There is no dilatation of the ascending aorta. There is no dilatation of the aortic arch. The aortic root is normal in size. Pulmonary Artery: The main pulmonary artery is not well visualized. Venous: The inferior vena cava is dilated. There is a greater than 50% respiratory change in the inferior vena cava dimension. Contrast: Definity was used to optimize study. 3 mL of diluted Definity was utilized. Normal saline was utilized as contrast for a bubble study. Images 20 and 21. Intravenous contrast was used to enhance endocardial border definition. Intravenous contrast was used to help determine presence of intracardiac shunting. Summary: There was not any prior study for comparison. Conclusions Global left ventricular wall motion and contractility are within normal limits. The estimated ejection fraction is 55-60%. There is normal left ventricular systolic function. Abnormal left ventricular diastolic function is observed. The left atrium is mildly dilated. The right atrium is mildly dilated. A patent foramen ovale is not demonstrated with color Doppler and agitated contrast. There is a trace of aortic regurgitation. There is a trace of mitral regurgitation. There is a physiologic tricuspid regurgitation. Unable to estimate the right ventricular systolic pressure. There is a trace pulmonic regurgitation. Measurements Name Value Normal Range RVIDd (AP) 2D 2.6 cm (0.9 - 2.6) RVDdMajor (2D) 4 cm (2.2 - 4.4) RAd ISD 4CH 4.6 cm (3.4 - 4.9) RA (A4C)W 4.9 cm (2.9 - 4.6) IVSd (2D) 1 cm (0.6 - 1) LVPWd (2D) 0.8 cm (0.6 - 1) LVIDd (2D) 4.1 cm (3.6 - 5.4) LVIDs (2D) 2.6 cm - LV FS (2D) 37 % (25 - 45) Aortic Annulus 1.9 cm (1.4 - 2.6) Ao root diameter (2D) 3.1 cm (2.1 - 3.5) Ascending Ao 3 cm (2.1 - 3.4) Aortic arch 2.3 cm (1.8 - 3.4) LA dimension (AP) 2D 3.9 cm (2.3 - 3.8) LAd ISD 4CH 5.4 cm (2.9 - 5.3) LA ISD 4CH W 4.1 cm (2.5 - 4.5) Name Value Normal Range LA ESV BP (A/L) index 35 ml/m2 - Name Value Normal Range MV E-wave Vmax 0.9 m/sec - MV deceleration time 166 msec - MV A-wave Vmax 0.6 m/sec - MV E:A ratio 1.4 ratio - LV septal e' Vmax 0.07 m/sec - LV lateral e' Vmax 0.08 m/sec - LV E:e' septal ratio 12.9 ratio - LV E:e' lateral ratio 11.25 ratio - Name Value Normal Range AV Vmax 1.3 m/sec - AV VTI 28.9 cm - AV peak gradient 7 mmHg - AV mean gradient 4 mmHg - LVOT Vmax 1.1 m/sec - LVOT VTI 22.6 cm - LVOT peak gradient 4 mmHg - LVOT mean gradient 3 mmHg - MARJAN Vmax 0.8 m/sec - Name Value Normal Range PV Vmax 1 m/sec - PV peak gradient 4 mmHg -
[2017-11-04 15:52] VITALS: BP 167/73
--- NOTE | 2017-11-04 16:16 | CONS ---
CONSULTATION REPORT: DATE OF CONSULT: 11/04/17 LOCATION: She is currently in room 453, bed 1. PRIMARY CARE PROVIDER: Dr. Renner. REASON FOR CONSULT: Left facial droop and stroke. HISTORY OF PRESENT ILLNESS: Ms. Alvares is a very nice 46-year-old female who has a history of hypertension and diabetes as well as anxiety and hyperlipidemia, but otherwise has been in her usual state of health. 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 She noted no other symptoms at that time, specifically no headache, no vision changes, no hearing loss, no difficulty swallowing, no focal numbness, tingling or weakness. No chest pain, shortness of breath, or dyspnea on exertion. She had not been recently ill. No fevers or chills. No recent travel. She states that the symptoms persisted, but she did not seek help. Over the next several days, she noted that she continued to have difficulty with her speech, some words were slurring. She continued to have drooling at times. The symptoms were slow to resolve and based on this, she came to the ER for further evaluation. In the ER, an MRI was done showing a 1.6-cm acute to early subacute ischemic infarct in the right alvarado radiata. Based on this, she was admitted to the hospital for further workup. She specifically denies any history of bleeding disorders. There is no family history of hemophilias or other blood clots. She has had no history of spontaneous abortions. No history of deep venous thrombosis. She does have a history of heavy periods and was recently treated for an ovarian cyst. She denies any prior heart history. Since admission to the hospital, she feels about the same. No real improvement, but no worsening. She has had no new focal symptoms. PAST MEDICAL HISTORY: As noted above. PAST SURGICAL HISTORY: Includes 5 surgeries on her right shoulder, 1 surgery on her left shoulder, gallbladder removal and she had gastric bypass 10 years ago. FAMILY HISTORY: As noted above. No history of bleeding disorders. Her father did have a stroke and has coronary artery disease. 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 She denies any tobacco use. No illicit substance use. She drinks very rarely. REVIEW OF SYSTEMS: In 14-organ systems as noted above, otherwise negative. Specifically, again, she denies any recent blood clots, any recent migraine headaches, any recent focal numbness, tingling, or weakness, any recent swallowing difficulties. PHYSICAL EXAM: Vital Signs: Blood pressure 186/96 to 173/90 to 173/90 to 177/ 93 to 184/87. She has been afebrile. Current temperature of 98.0, pulse of 89 , respiratory rate of 20, pulse ox of 99%. She has had no events on telemetry. In general, she is a well-nourished, well-developed, obese female, lying on her hospital bed. She is pleasant, well dressed, well groomed. HEENT: She is normocephalic, atraumatic. Sclerae are anicteric. Mucous membranes are moist. Oropharynx is clear. Nares are patent. Neck is supple. No thyromegaly. No carotid bruits. No meningismus. Chest: Clear to auscultation bilaterally. Cardiovascular: Regular rate and rhythm without murmurs, gallops, or rubs. Abdomen is obese, nontender. Extremities: No clubbing, cyanosis, or edema. There are no palpable cords. No erythema in her legs or arms. No swelling. Skin is warm and dry. On neurologic exam, she is awake, alert, oriented x3. Her speech is fluent. There is no dysarthria. Repetition is intact. Recall of recent and remote events is intact. Vocabulary is intact. Her mood is dysthymic. Affect, mood congruent. Cranial nerves II through XII: Pupils are equal, round, and reactive to light. Extraocular muscles are intact. Visual lynn are full to confrontation. No diplopia. No nystagmus. No ptosis. Facial sensation is intact throughout. She has a very subtle left nasolabial fold, flattening, and left smile weakness. Hearing is intact bilaterally. Palate raises symmetrically. Uvula is midline. Tongue is midline. Sternocleidomastoid and trapezius are 5/5. Motor Exam: She is 5/5 throughout. No drift is apparent in the upper and lower extremities. Tone and bulk are both normal. No cogwheeling or paratonia. She has no resting tremor. No irhjhp-dx-xrja tremor. No dysdiadochokinesia or dysmetria. Bodp-sw-zbal is normal. DTRs are 2+ and symmetric in the upper and lower extremities. Equivocal Babinski's bilaterally. Sensation is intact to light touch and pinprick throughout. No focal deficits. She is able to ambulate without difficulty. DIAGNOSTIC STUDIES/LAB DATA: Lab work includes a white count of 7.6, hemoglobin of 9.8, hematocrit of 30. INR of 0.93, PTT of 34.8. Complete metabolic panel yesterday with a glucose of 120, this morning glucose of 119. Triglycerides of 228, cholesterol of 178, LDL of 104, HDL of 28.4. Studies: MRI of the brain, films reviewed as noted above. CTA of the head and neck: No hemodynamically significant stenosis or large vessel occlusion. Posterior circulation is unremarkable. CT of the head done yesterday in the ER shows a hypodensity in the deep white matter of the frontal lobe, no hemorrhage noted. Echocardiogram is pending. ASSESSMENT AND PLAN: Ms. Alvares is a 46-year-old female with a history of multiple stroke risk factors including hypertension, diabetes, hyperlipidemia, who presented to the hospital with a 3-day history of left facial droop, some slurred speech. No difficulty swallowing. The symptoms were persistent and she came to the ER for further evaluation. Subsequent MRI showed a stroke in the right alvarado radiata. She was admitted to the hospital for further workup. At this point, her workup is negative. CT angiogram shows no evidence of large vessel occlusion or stenosis in her head or neck. Echocardiogram is pending. Depending on those results, she may need a SOLO, this is something that can likely be scheduled as an outpatient. She has absolutely no history of any clotting or bleeding disorders other than some heavy periods. We have sent a hypercoagulable panel and I do suggest that she has a followup with Hematology as an outpatient for any additional workup that may be needed. I would continue her on an aspirin for now, I do not there is any need to use any other anticoagulation. I am going to add a statin for tight lipid control with goal LDL less than 70. Continue her blood pressure medication and control, and at this point, can strive for good control. Continue diabetes medications and strive for good control. She has no need for physical therapy, occupational therapy or speech therapy at this point. No problems swallowing and her speech is largely resolved. I do think after her echocardiogram depending on the results, she may be able to go home this afternoon. I will need a close followup in 4 to 6 weeks. I will continue to follow her closely and make further recommendations as necessary. Thank you for the opportunity to participate in the care of this very interesting patient. [id number]/[facility] #: [id number] DIRKD
[2017-11-04] MEDS ORDERED: Atorvastatin* 80 MG TAB PO ONE (21:00)
--- NOTE | 2017-11-05 05:40 | DS ---
CC: Dr. Trudy Renner; Dr. Derek Arguello DISCHARGE SUMMARY: DATE OF ADMISSION: 11/03/17 DATE OF DISCHARGE: 11/04/17 PRIMARY CARE PROVIDER: Dr. Trudy Renner. CONSULTING NEUROLOGIST: Dr. Derek Arguello. DISCHARGE DIAGNOSIS: Right alvarado radiata CVA. SECONDARY DIAGNOSES: 1. Type 2 diabetes. 2. Hypertension. 3. Anxiety. 4. Arthritis. 5. Hyperlipidemia. 6. Status post cholecystectomy. 7. Status post gastric bypass. 8. Obesity with a BMI of 33. MEDICATION LIST: 1. Acetaminophen 650 mg p.o. 4 times a day p.r.n. pain or fever. 2. Calcium carbonate 1000 mg p.o. q.a.m. 3. Cholecalciferol 2000 units p.o. q.a.m. 4. Cyanocobalamin 500 mcg p.o. q.a.m. 5. Trulicity 0.75 mg subcutaneously weekly. 6. Escitalopram 20 mg p.o. q.a.m. 7. Folic acid 1 mg p.o. q.a.m. 8. Lisinopril 20 mg p.o. q.a.m. 9. Multivitamin 1 tablet p.o. b.i.d. New Medications: 1. Aspirin 81 mg p.o. daily. 2. Atorvastatin 80 mg p.o. at bedtime. HOSPITAL COURSE: Mrs. Alvares is a 46-year-old lady with a past medical history as stated above that presented to the emergency room with complaints that 3 days prior to admission she noted trouble with her speech. She was having difficulty saying the words and they were not coming out clearly. She also saw that she had a slight facial droop, but she thought this was just related to being tired. For more details about her presentation, I refer you to her history and physical. As the symptoms persisted, the patient was encouraged by her PCP to come to emergency room where she had a workup that included a CT of the brain that showed hypodensity in the deep white matter in the right frontal lobe, but no intracranial hemorrhage was noted. The patient was admitted as observation for further workup. An MRI of the brain without contrast showed 1.6 cm acute to early subacute ischemic infarct involving the right alvarado radiata. The patient was seen in consultation by Neurology (Dr. Arguello) and his impression was the patient had multiple stroke risk factors including hypertension, diabetes, hyperlipidemia who presented to the hospital with a 3-day history of left facial droop, some slurred speech, no difficulty swallowing. An MRI showing a stroke in the right alvarado radiata. His recommendation was for a CT angiogram that showed no evidence of a large vessel occlusion or stenosis in her head or neck and he also want a transthoracic echocardiogram. The patient has no history of any clotting or bleeding disorder, but he felt a hypercoagulable workup was required so this was sent, the results are pending at this time and should be followed as outpatient. His recommendation was to continue on aspirin and to follow up with Hematology as outpatient after the hypercoagulable workup results are available. I contacted Dr. Caryl Quevedo to arrange follow up as outpatient. Also, her lipid profile showed an LDL of 104 and she was started on high-dose atorvastatin to a goal LDL of less than 17. The patient received education about side effects of both aspirin and atorvastatin and she will need monitoring of her CPK and LFTs as outpatient. The patient's echocardiogram showed ejection fraction of 55 to 60% with no PFO demonstrated. Trace AR, trace MR, physiologic TR. Dr. Arguello plans to see her as outpatient and then decide if she needs the transesophageal echocardiogram. The patient is medically stable for discharge at this time to follow up with her primary care provider and with Dr. Arguello in 4 to 6 weeks. The patient has known hypertension and her blood pressure was elevated when she arrived. I am going to continue her lisinopril, but she may need a higher dose as outpatient. She will follow up with her primary care provider and will need further adjustments or even addition of another agent. PHYSICAL EXAMINATION: Vital Signs: Temperature 98.1, heart rate is 92, respiratory rate 16, oxygen saturation 99% on room air, and blood pressure is 167/73. General: The patient is a pleasant lady, sitting up in a chair, in no acute distress. CVS: Normal S1 and S2. Regular rate and rhythm. Chest: Breath sounds present bilaterally with no added sounds. Neuro: She is alert and oriented x3. Face is symmetric. Speech is clear. She is able to move all 4 extremities. DIET: Heart-healthy, consistent carb diet. ACTIVITIES: As tolerated. DISPOSITION: To home. Please keep in mind this is a summarized version of this patient's hospital stay. If you need more information, please feel free to call me at [phone] or please obtain the full medical records. TIME SPENT: Approximately 45 minutes were spent to complete this discharge. [id number]/[facility] #: [id number] MIKE
[2017-11-08 21:12] LABS: Prothrombin 20210 Mutation Negative (Negative)
== END 2017-11-04 16:50 | disposition home or self-care (01) ==
LOC: ED 15:31 → MEDTELE 22:07
PROVIDERS: ADMIT Pediatrics; ATTEND Internal Medicine
DX: I63.9 Cerebral infarction, unspecified (principal); I10 Essential (primary) hypertension; F41.9 Anxiety disorder, unspecified; E78.5 Hyperlipidemia, unspecified; E11.9 Type 2 diabetes mellitus without complications; M19.90 Unspecified osteoarthritis, unspecified site; E66.9 Obesity, unspecified; Z68.33 Body mass index [BMI] 33.0-33.9, adult; I51.7 Cardiomegaly; Z98.84 Bariatric surgery status; Z79.899 Other long term (current) drug therapy; Z79.82 Long term (current) use of aspirin; Z88.8 Allergy status to other drugs, medicaments and biological substances; Z79.84 Long term (current) use of oral hypoglycemic drugs
CPT/HCPCS: 36415; 70450; 70496; 70498; 70551; 80048; 80053; 80061; 81240; 81241; 83036; 83090; 85025; 85300; 85303; 85306; 85307; 85610; 85613; 85730; 86147; 86618; 93306; 96372; 99282; A9270-GY; C8929; G0378; G8978-GP-CH; G8979-GP-CH; G8980-GP-CH; J1644; Q9967

== ENCOUNTER 2018-02-24 15:28 | Emergency (ER) | payer BC ==
--- NOTE | 2018-02-24 16:58 | ED ---
Upper Extremity Pain - HPI Summary HPI Summary: 47 year old female presents with left hand injury. She states that she tripped and fell onto her left hand. She has pain over her thumb index and middle finger. States area swollen. She is right-handed. She denies any numbness or tingling to the area. Denies any other pain. - History of Current Complaint Chief Complaint: EDExtremityUpper Stated Complaint: LEFT HAND INJURY Time Seen by Provider: 02/24/18 16:38 Hx Last Menstrual Period: 4 months ago - Allergies/Home Medications Allergies/Adverse Reactions: Allergies Allergy/AdvReac Type Severity Reaction Status Date / Time shellfish derived Allergy Severe Anaphylatic Verified 11/03/17 20:22 Shock metformin AdvReac Severe Diarrhea Verified 11/03/17 20:22 PMH/Surg Hx/FS Hx/Imm Hx Endocrine/Hematology History: Reports: Hx Diabetes, Hx Anemia Denies: Hx Thyroid Disease Cardiovascular History: Reports: Hx Hypertension Denies: Hx Congestive Heart Failure, Hx Pacemaker/ICD, Other Cardiovascular Problems/Disorders Respiratory History: Denies: Hx Asthma, Hx Chronic Obstructive Pulmonary Disease (COPD), Other Respiratory Problems/Disorders GI History: Reports: Other GI Disorders - 2009-FLOATING INTERNAL HERNIA STATES WAS FIXED Denies: Hx Ulcer History: Denies: Hx Renal Disease, Other Problems/Disorders Musculoskeletal History: Reports: Hx Arthritis - hands and shoulders Denies: Other Musculoskeletal History Sensory History: Reports: Hx Contacts or Glasses Denies: Hx Cataracts, Hx Hearing Aid Opthamlomology History: Reports: Hx Contacts or Glasses Denies: Hx Cataracts Neurological History: Reports: Hx Migraine - IN THE PAST- been a long time since last one Denies: Other Neuro Impairments/Disorders Psychiatric History: Reports: Hx Anxiety Denies: Hx Panic Disorder - Cancer History Hx Chemotherapy: No - Surgical History Surgery Procedure, Year, and Place: Right Index Finger 09/07/13,. 06/03 R HAND, 5TH DIGIT, W/ PIN; GANGLION CYST - REMOVED FROM MIDDLE FINGER. 09/2009 & LEFT SHOULDER BONE SPUR , 10/2012, LEFT SHOULDER, [facility] ( DISLOCATED-SEPERATED FROM A FALL). 12/20/09 HERNIA,. 04/2017-LEFT SHOULDER SURGERY. 12/30 GASTRIC BYPASS,. gall bladder removed 2015. 11/22 & 11-24 GANGLION CYSTS,. JARETT CARPAL TUNNEL. LEFT 5th finger trigger release 08/2014 Hx Anesthesia Reactions: Yes - will develop severe nausea with anesthesia- scopalamine patch works - Immunization History Date of Tetanus Vaccine: UTD Date of Influenza Vaccine: 2013 Infectious Disease History: No Infectious Disease History: Denies: Hx Clostridium Difficile, Hx Hepatitis, Hx Human Immunodeficiency Virus (HIV), Hx of Known/Suspected MRSA, Hx Shingles, Hx Tuberculosis, Hx Known/ Suspected VRE, Hx Known/Suspected VRSA, History Other Infectious Disease, Traveled Outside the [place] in Last 30 Days - Family History Known Family History: Positive: Cardiac Disease, Hypertension, Diabetes, Respiratory Disease - in father, Other - ARTHRITIS; OBESITY, silent strokes in father - Social History Alcohol Use: Rare Alcohol Amount: 2-3 TIMES A YEAR Hx Substance Use: No Substance Use Type: Reports: None Hx Tobacco Use: No Smoking Status (MU): Never Smoked Tobacco Have You Smoked in the Last Year: No Review of Systems Negative: Fever Negative: Chest Pain Negative: Shortness Of Breath Positive: Myalgia - left hand pain All Other Systems Reviewed And Are Negative: Yes Physical Exam Triage Information Reviewed: Yes Vital Signs On Initial Exam: Initial Vitals Temp Pulse Resp BP Pulse Ox 96.9 F 97 18 186/85 99 02/24/18 15:33 02/24/18 15:33 02/24/18 15:33 02/24/18 15:33 02/24/18 15:33 Vital Signs Reviewed: Yes Appearance: Positive: Well-Appearing Skin: Positive: Warm, Dry Head/Face: Positive: Normal Head/Face Inspection Eyes: Positive: Normal, Conjunctiva Clear ENT: Positive: Pharynx normal Respiratory/Lung Sounds: Positive: Clear to Auscultation, Breath Sounds Present Cardiovascular: Positive: Normal, RRR Musculoskeletal: Positive: Other - tenderness left thumb, index and middle finger, pos snuff box tenderness, capillary refill<2secs Neurological: Positive: Normal Psychiatric: Positive: Normal Diagnostics - Vital Signs Vital Signs Temp Pulse Resp BP Pulse Ox 02/24/18 15:33 96.9 F 97 18 186/85 99 - Laboratory Lab Statement: Any lab studies that have been ordered have been reviewed, and results considered in the medical decision making process. - Radiology hand Radiology Interpretation Completed By: Radiologist Summary of Radiographic Findings: no fracture Course/Dx - Course Course Of Treatment: 47 year old female presents with left hand injury. She states that she tripped and fell onto her left hand. She has pain over her thumb index and middle finger. States area swollen. She is right-handed. She denies any numbness or tingling to the area. Denies any other pain. On exam has tenderness over left thumb index finger and middle finger. Positive snuffbox tenderness. Neurovascular intact. X-ray normal. Placed in a prefabricated thumb spica splint. told follow-up with orthopedic. Patient understands and agrees with plan. - Diagnoses Differential Diagnosis/HQI/PQRI: Positive: Fracture (Closed), Strain, Sprain Provider Diagnoses: Injury of left hand Discharge - Sign-Out/Discharge Documenting (check all that apply): Patient Departure - Discharge Plan Condition: Good Disposition: HOME Prescriptions: HYDROcodone/ACETAMIN 5-325 MG* [[place] 5-325 TAB*] 1 tab PO Q6H PRN #8 tab MDD 4 PRN Reason: Pain Patient Education Materials: Suspected Fracture (ED), R.I.C.E. Treatment (ED) Referrals: Trudy Renner MD [Primary Care Provider] - Diego Hill MD [Medical Doctor] - Additional Instructions: Keep splint on area Call ortho office to set up appointment for follow up Use ibuprofen for pain every 6 hours and use narcotic for breakthrough pain every 6 hours Ice, elevate Return to ED if develop any new or worsening symptoms - Billing Disposition and Condition Condition: GOOD Disposition: Home
[2018-02-24 17:26] VITALS: BP 177/89
== END 2018-02-24 17:20 | disposition home or self-care (01) ==
LOC: ED 15:28
DX: S69.92XA Unspecified injury of left wrist, hand and finger(s), initial encounter (principal); M79.642 Pain in left hand; I10 Essential (primary) hypertension; W01.0XXA Fall on same level from slipping, tripping and stumbling without subsequent striking against object, initial encounter; Y92.9 Unspecified place or not applicable
CPT/HCPCS: 99282

== ENCOUNTER 2018-05-05 08:51 | Day surgery (SDC) | payer BC ==
[~2018-05-05 08:51] MED LIST changes: -Buffered Lidocaine 0.9% SYRIN* 5 ML/SYR SYRINGE INTRADERM ONE; +Buffered Lidocaine 1% SYRIN* 1 ML/SYRINGE INTRADERM ONE; +Dexamethasone TAB* 4 MG PO ONE; +DiMENhydriNATE IV* 50 MG/ML VIAL IV PUSH PRN; +Lactated Ringers 1000 ML Bag* 1,000 ML IV SCH; +Midazolam* 1 MG/ML 5 ML VIAL (5 MG) ONE; +Morphine 4 MG/ML VIAL (1 ml) 4 MG/ML VIAL IV PRN; +Naloxone* 0.4 MG/ML 1 ML VIAL IV PRN; +Ondansetron TAB* 4 MG PO ONE; +PROCHLORPERAZINE INJ 5 MG/ML 2 ML VIAL IV PRN; -Scopolamine 1.5 mg* PATCH TRANSDERM ONE; +fentaNYL* 50 MCG/ML 2 ML VIAL (100 MCG VIAL) IV PRN; +fentaNYL* 50 MCG/ML 2 ML VIAL (100 MCG VIAL) ONE; +oxyCODONE/Acetamin 5/325 MG* TAB PO PRN
[2018-05-05] MEDS ORDERED: Scopolamine 1.5 mg* PATCH TRANSDERM SCH (09:00)
[2018-05-05] MEDS ORDERED: Ketorolac INJ* 30 MG/ML 1 ML VIAL ONE (09:11)
[2018-05-05] MEDS ORDERED: Propofol* 10 MG/ML 20 ML BTL ONE ×2 (09:11→10:31)
[2018-05-05] MEDS ORDERED: Scopolamine 1.5 mg* PATCH ONE (09:25)
[2018-05-05] MEDS ORDERED: Ondansetron ODT TAB* 4 MG ONE (09:25)
[2018-05-05] MEDS ORDERED: Dexamethasone TAB* 4 MG ONE (09:25)
[2018-05-05] MEDS ORDERED: Famotidine IV* 10 MG/ML 2 ML (20 mg) ONE (09:26)
[2018-05-05] MEDS ORDERED: Bupivacaine 0.25% SDV* 30 ML ONE (09:45)
[2018-05-05] MEDS ORDERED: hydrALAZINE IV* 20 MG/ML VIAL ONE (10:31)
[2018-05-05] MEDS ORDERED: Metoprolol Tartrate IV* 1 MG/ML 5 ML VIAL ONE (10:31)
[2018-05-05 11:22] VITALS: BP 148/75
--- NOTE | 2018-05-05 11:47 | OP ---
DATE OF OPERATION: 05/05/18 [facility] DATE OF : 68 SURGEON: Gerald Vinson MD. [employer] SET UP MECHANIC: MATTI Saez. ANESTHESIOLOGIST: Dr. Vickers. ANESTHESIA: Local MAC. PRE-OP DIAGNOSES: 1. Right small finger trigger finger. 2. Right small finger tendon sheath mass. POST-OP DIAGNOSES: 1. Right small finger trigger finger. 2. Right small finger tendon sheath mass. OPERATIVE PROCEDURES: 1. Right small finger trigger finger release. 2. Excision of tendon sheath mass, right small finger. ESTIMATED BLOOD LOSS: 2 mL. COMPLICATIONS: None. FINDINGS: See above and below. DESCRIPTION OF PROCEDURE: Gricelda was seen in the preoperative holding area. The correct site, side, and procedure were identified. We came back to the operating room, where the arm was prepped and draped in the usual fashion and a time-out was performed. The arm was exsanguinated with the Esmarch and the tourniquet was inflated to 250 mmHg. I made a longitudinal incision over the A1 everton of the right small finger. Dissection was carried down and full-thickness flaps were raised off of the mass and off of the tendon sheath bluntly. Ragnell retractors were placed. I then excised the mass off the tendon sheath. It was a large amount of nodular tenosynovitis. This was handed off as a specimen. After the mass was excised, I went ahead and released the A1 everton along the radial third longitudinally. There was some tenosynovitis; this was excised. The release was completed distally and proximally with the tenotomy scissors. The wound was irrigated out. The skin was closed with 4-0 nylon suture. Wounds were dressed with soft dressings and she was taken to the recovery room in stable condition. [id number]/[facility] #: [id number] MTDD
== END 2018-05-05 10:32 | disposition home or self-care (01) ==
LOC: OREAST 08:51
PROVIDERS: ATTEND Orthopaedic Surgery Hand Surgery
DX: M65.351 Trigger finger, right little finger (principal); M67.441 Ganglion, right hand; I10 Essential (primary) hypertension; E11.9 Type 2 diabetes mellitus without complications
CPT/HCPCS: 88304; A9270-GY; J0360; J1885; J2250; J2704; J3010; J3490; J8540

== ENCOUNTER 2018-12-01 10:42 | Emergency (ER) | payer BC ==
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
[2018-12-01 12:45] VITALS: BP 153/90
== END 2018-12-01 12:42 | disposition home or self-care (01) ==
LOC: ED 10:42
DX: S90.31XA Contusion of right foot, initial encounter (principal); W31.89XA Contact with other specified machinery, initial encounter; Y92.9 Unspecified place or not applicable; E11.9 Type 2 diabetes mellitus without complications; D64.9 Anemia, unspecified; I10 Essential (primary) hypertension; F41.9 Anxiety disorder, unspecified; Z98.84 Bariatric surgery status; Z79.84 Long term (current) use of oral hypoglycemic drugs; Z79.899 Other long term (current) drug therapy; Z88.8 Allergy status to other drugs, medicaments and biological substances
CPT/HCPCS: 99282

== ENCOUNTER 2019-03-15 10:07 | Emergency (ER) | payer BC ==
--- OUTSIDE RECORDS SUMMARY | 2019-03-15 10:13 | XMS REPORT | Continuity of Care Document ---
:1970 External Reference #:[id number] Author Name Derek Arguello M.D. ([facility] Address [address], [place] [address] Care Team Providers Name Role Phone Trudy Renner MD - Internal Medicine Care Team Information Fitness Teacher Problems Active Problems Provider Date Disorder of shoulder Diego Hill MD Onset: 03/09/2017 Shoulder joint pain Diego Hill MD Onset: 03/09/2017 Brachial neuritis Diego Hill MD Onset: 04/06/2017 Injury of shoulder region Diego Hill MD Onset: 04/29/2017 Incomplete rotator cuff tear or rupture of Diego Hill MD Onset: 06/22/2017 left shoulder, not specified as traumatic Cerebral artery occlusion Derek Arguello M.D. Onset: 12/17/2017 Hyperlipidemia Derek Arguello M.D. Onset: 12/17/2017 Essential hypertension Derek Arguello M.D. Onset: 12/17/2017 Abnormal involuntary movement Derek Arguello M.D. Onset: 01/26/2019 Chronic fatigue syndrome Derek Arguello M.D. Onset: 01/26/2019 Dysphagia Derek Arguello M.D. Onset: 01/26/2019 History of cerebrovascular accident without Derek Arguello M.D. Onset: 06/2018 residual deficits Acquired trigger finger Gerald Vinson MD Onset: 04/05/2018 Social History Type Date Description Comments Sex Unknown Tobacco Use Start: Unknown Never Smoked Cigarettes ETOH Use Rarely consumes alcohol Tobacco Use Start: Unknown End: Unknown denies smoking Recreational Drug Use Denies Drug Use Tobacco Use Start: Unknown Patient has never smoked Smoking Status Reviewed: 01/26/19 Patient has never smoked Exercise Type/Frequency Exercises regularly Allergies, Adverse Reactions, Alerts Active Allergies Reaction Severity Comments Date Shellfish-derived Products 09/26/2012 Inactive Allergies [place] 09/26/2012 Medications Active Medications SIG Qnty Indications Ordering Provider Date Lisinopril 1 by mouth every Unknown 20mg Tablets day Lexapro 1 by mouth every Unknown 20mg Tablets day Multivitamin Adult Unknown Tablets Trulicity inject 0.75mg once Unknown 0.75mg/0.5ML a week Solution Pen-Inject Ibuprofen prn Unknown Vitamin D3 As directed Unknown Tablets Aspir-81 1 by mouth every Unknown 81mg Tablets DR day Medications Administered in Office Medication SIG Qnty Indications Ordering Provider Date Triamcinolone (Kenalog) Diego Hill MD 03/09/2017 Injection Celestone 3 mg and 3mg Sydney Otto, 05/31/2013 Injection M.Marisela. Depomedrol 80MG Neno Coppola M.D. 08/26/2012 Injection Celestone 3 mg and 3mg Sydney Otto, 06/06/2012 Injection M.Marisela. Celestone 3 mg and 3mg Sydney Otto, 06/06/2012 Injection Rubén Depomedrol 80MG Neno Coppola M.D. 12/03/2011 Injection Immunizations Description No Information Available Vital Signs Date Vital Result Comment 01/26/2019 9:10am Height 68 inches 5'8" Weight 229.25 lb Heart Rate 96 /min BP Systolic Sitting 152 mmHg BP Diastolic Sitting 84 mmHg Respiratory Rate 16 /min BMI (Body Mass Index) 34.9 kg/m2 07/06/2018 9:18am Height 68 inches 5'8" Heart Rate 94 /min BP Systolic 148 mmHg BP Diastolic 90 mmHg Respiratory Rate 18 /min Body Temperature 98.0 F Pain Level 0 Results Description No Information Available Procedures Description No Information Available Medical Devices Description No Information Available Encounters Description No Information Available Assessments Date Code Description Provider 01/26/2019 Z86.73 Personal history of transient ischemic Derek Arguello M.D. attack (TIA), and cerebral infarction without residual deficits 01/26/2019 R13.10 Dysphagia, unspecified Derek Arguello M.D. 01/26/2019 R53.82 Chronic fatigue, unspecified Derek Arguello M.D. 01/26/2019 R25.1 Tremor, unspecified Derek Arguello M.D. Plan of Treatment Future Appointment(s):05/05/2019 4:00 pm - Derek [facility] M.D. at [facility]01/26/2019 - Derek Arguello M.D.Z86.73 Personal history of transient ischemic attack (TIA), and cerebral infarction without residualdeficitsFollow up:Follow up in 3 monthsRecommendations:Call me 1 week after the MRIR13.10 Dysphagia, unspecifiedNew Xrays:Pharynx Esophagus Swallowing Function, Ordered: 01/26/19New Therapy:Speech TherapyRecommendations: Call me 1 week after swallowing fecxcC19.82 Chronic fatigue, bjdnzapijuxJ24.1 Tremor, unspecified Functional Status Description No Information Available Mental Status Description No Information Available Referrals Description No Information Available
[2019-03-15 10:19] VITALS: BP 161/95
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
[2019-03-15 10:46] LABS: Influenza A Molecular NEGATIVE (Negative); Influenza B Molecular NEGATIVE (Negative)
== END 2019-03-15 11:38 | disposition home or self-care (01) ==
LOC: UCEAST 10:07
DX: J06.9 Acute upper respiratory infection, unspecified (principal); E11.9 Type 2 diabetes mellitus without complications; I10 Essential (primary) hypertension; Z91.013 Allergy to seafood; Z79.899 Other long term (current) drug therapy
CPT/HCPCS: 71046; 99212; G0463

== ENCOUNTER 2019-06-16 11:58 | Emergency (ER) | payer BC ==
--- OUTSIDE RECORDS SUMMARY | 2019-06-16 12:27 | XMS REPORT | Continuity of Care Document ---
:1970 External Reference #:[id number] Author Name Gerald Vinson MD (transmitted by agent of provider Kathleen Mathew) Address [address] [place] [address] Care Team Providers Name Role Phone Trudy Renner MD - Internal Medicine Care Team Information Communication Assistant Problems Active Problems Provider Date Disorder of [...] Tobacco Use Start: Unknown Never Smoked Cigarettes Smoking Status Reviewed: 06/13/19 Never Smoked Cigarettes ETOH Use Rarely consumes alcohol Tobacco Use Start: Unknown Patient has never smoked Recreational Drug Use Denies Drug Use Exercise Type/Frequency Exercises regularly Allergies, Adverse Reactions, Alerts Active Allergies Reaction Severity Comments Date Shellfish-derived Products 09/26/2012 Tramadol 06/13/2019 Inactive Allergies [place] 09/26/2012 Medications Active Medications SIG Qnty Indications [...] Medication SIG Qnty Indications Ordering Provider Date Celestone 3 mg and 3mg Gerald Vinson MD 06/13/2019 Injection Triamcinolone (Kenalog) Diego Hill MD 03/09/2017 Injection Celestone 3 mg and 3mg Sydney Otto, 05/31/2013 Injection Rubén Depomedrol 80MG Neno Coppola M.D. 08/26/2012 Injection Celestone 3 mg and 3mg Sydney Otto, 06/06/2012 Injection Ugo.D. Celestone 3 mg and 3mg Sydney Otto, 06/06/2012 Injection Rubén Depomedrol 80MG Neno Coppola M.D. 12/03/2011 Injection Immunizations Description No Information Available Vital Signs Date Vital Result Comment 06/13/2019 8:28am Height 68 inches 5'8" Weight 208.00 lb Heart Rate 96 /min BP Systolic 142 mmHg BP Diastolic 86 mmHg Respiratory Rate 14 /min Body Temperature 97.9 F Pain Level 9 O2 % BldC Oximetry 99 % BMI (Body Mass Index) 31.6 kg/m2 01/26/2019 9:10am Height 68 inches 5'8" Weight 229.25 lb Heart Rate 96 /min BP Systolic Sitting 152 mmHg BP Diastolic Sitting 84 mmHg Respiratory Rate 16 /min BMI (Body Mass Index) 34.9 kg/m2 Results Test Acquired Date Facility Test Result H/L Range Note Laboratory test 02/08/2019 [facility] TSH 1.36 Normal 0.34- 5.[address] (Thyroid mcIU/[place] [address] Stim [phone] Horm) Free T4 (Free Thyroxine) 0.66 ng/dL Normal 0.61-1.12 Ceruloplasmin 36.3 mg/dL 1 Copper, Serum 1.73 g/mL Abnormal 0.75-1.45 2 Liver Function 02/08/2019 [facility] Total Protein 6.7 g/dL Normal 6.4-8.9 Panel [address] [place] [address] [phone] Albumin 4.2 g/dL Normal 3.2-5.2 Globulin 2.5 g/dL Normal 2-4 Albumin/Globulin Ratio 1.7 Normal 1-3 Total Bilirubin 0.30 mg/dL Normal 0.2-1.0 Direct Bilirubin 0.10 mg/dL Normal 0.03-0.18 Indirect Bilirubin 0.2 mg/dL Low 0.3-1.0 Alkaline Phosphatase 99 U/L Normal 34-104 Alt 15 U/L Normal 7-52 Ast 18 U/L Normal 13-39 1 REFERENCE VALUE 20.0 - 51.0 Test Performed by: [place] [id number] Email Production Specialist: Colton Cardona M.D. Ph.D.; CLIA# [id number] 2 ADDITIONAL INFORMATION This test was developed and its performance characteristics determined by [facility] in a manner consistent with CLIA requirements. This test has not been cleared or approved by the U.S. Food and Drug Administration. Test Performed by: [facility] - [address] [address] Email Production Specialist: Colton Cardona M.D. Ph.D.; CLIA# [id number] Procedures Date Code Description Status 06/13/2019 59160 Inject Tendon Sheath Or Ligament Aponeurosis Eg Plantar Completed Fascia Medical Devices Description No Information Available Encounters Type Date Location Provider Dx Diagnosis Office Visit 06/13/2019 [facility] at Gerald Vinson, M65.321 Trigger finger, 8:00a Rhys AKBAR right index finger Office Visit 01/26/2019 [facility] Derek Arguello, Z86.73 Prsnl hx of TIA 9:00a Clinic M.D. (TIA), and cereb infrc w/o resid deficits R13.10 Dysphagia, unspecified R53.82 Chronic fatigue, unspecified R25.1 Tremor, unspecified Assessments Date Code Description Provider 06/13/2019 M65.321 Trigger finger, right index finger Gerald Vinson MD 01/26/2019 Z86.73 Personal history of transient ischemic Derek Arguello M.D. attack (TIA), and cerebral infarction without residual deficits 01/26/2019 R13.10 Dysphagia, unspecified Derek Arguello M.D. 01/26/2019 R53.82 Chronic fatigue, unspecified Derek Arguello M.D. 01/26/2019 R25.1 Tremor, unspecified Derek Arguello M.D. Plan of Treatment Future Appointment(s):07/11/2019 8:45 am - Gerald Vinson MD at [facility] at [id number]/13/2019 - Gerald Vinson, MDM65.321 Trigger finger, right index fingerFollow up:Follow up: 4 weeks Functional Status Description No Information Available Mental Status Description No Information Available Referrals Description No Information Available
--- OUTSIDE RECORDS SUMMARY | 2019-06-16 12:27 | XMS REPORT | Continuity of Care Document ---
:1970 External Reference #:[id number] Author Name Gerald Vinson MD (transmitted by agent of provider Bruce Alcantara) Address [address] [place] [address] Care Team Providers Name Role Phone Trudy Renner MD - Internal Medicine Care Team Information Safety Advisor [phone] Problems Active Problems Provider Date Disorder of [...] Shellfish-derived Products 09/26/2012 Tramadol 06/13/2019 Inactive Allergies [place] 09/26/2012 Medications Active Medications SIG Qnty Indications [...] mg and 3mg Sydney Otto, 05/31/2013 Injection M.Nasreen Depomedrol 80MG Neno Coppola M.D. 08/26/2012 Injection Celestone 3 mg and 3mg Sydney Otto, 06/06/2012 Injection M.D. Celestone 3 mg and 3mg Sydney Otto, 06/06/2012 Injection Ugo.Nasreen Depomedrol 80MG Neno Coppola M.D. 12/03/2011 Injection [...] Result H/L Range Note Laboratory test 02/08/2019 [facility] TSH 1.36 Normal 0.34- 5.[address] (Thyroid mcIU/[place] [address] Stim [phone] Horm) Free T4 (Free Thyroxine) 0.66 ng/dL Normal 0.61-1.12 Ceruloplasmin 36.3 mg/dL 1 Copper, Serum 1.73 g/mL Abnormal 0.75-1.45 2 Liver Function 02/08/2019 [facility] Total Protein 6.7 g/dL Normal 6.4-8.9 Panel [address] [place] [address] [phone] Albumin 4.2 g/dL Normal 3.2-5.2 Globulin 2.5 g/dL Normal 2-4 Albumin/Globulin Ratio 1.7 Normal 1-3 Total Bilirubin 0.30 mg/dL Normal 0.2-1.0 Direct Bilirubin 0.10 mg/dL Normal 0.03-0.18 Indirect Bilirubin 0.2 mg/dL Low 0.3-1.0 Alkaline Phosphatase 99 U/L Normal 34-104 Alt 15 U/L Normal 7-52 Ast 18 U/L Normal 13-39 1 REFERENCE VALUE 20.0 - 51.0 Test Performed by: [facility] [place] [address] [employer] Department Supervisor: Colton Cardona M.D. Ph.D.; CLIA# [id number] 2 ADDITIONAL INFORMATION This test was developed and its performance characteristics determined by [facility] in a manner consistent with CLIA requirements. This test has not been cleared or approved by the U.S. Food and Drug Administration. Test Performed by: [facility] [address] [place] [address] [employer] Department Supervisor: Colton Cardona M.D. Ph.D.; CLIA# [id number] Procedures Date Code Description Status 06/13/2019 01664 Inject Tendon Sheath Or Ligament Aponeurosis Eg Plantar Completed Fascia Medical Devices Description No Information Available Encounters Type Date Location Provider Dx Diagnosis Office Visit 06/13/2019 [facility], M65.321 Trigger finger, 8:00a Rhys AKBAR right index finger Office Visit 01/26/2019 [facility]ist Derek Arguello, Z86.73 Prsnl hx of TIA 9:00a Clinic M.DRox (TIA), and cereb infrc w/o resid deficits [...] unspecified Derek Arguello M.D. Plan of Treatment No Information Available Functional Status Description No Information Available Mental Status Description No Information Available Referrals Description No Information Available
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
--- OUTSIDE RECORDS SUMMARY | 2019-06-16 12:27 | XMS REPORT | Summary of Care ---
:1970 Author Organization [facility] Address [address] [place] [address] Care Team Providers Name Role Phone Trudy Renner Primary Care Provider Satya Dudley OD Primary Home Care Coordinator/Lay Ups Assembler Reason for Visit Reason Comments Neck Pain x2 weeks, fell on the ice Shoulder Pain right shoulder pain Encounter Details Date Type Department Care Team Description 04/24/2019 Office Visit [place] Katya Muro, Fall due to slipping on ice or snow, initial encounter (Primary Dx); Practice [facility] Neck strain, initial encounter; [address] [place] [address] [place] [address] [phone] Allergies Active Allergy Reactions Severity Noted Date Comments Metformin GI Reaction 01/27/2016 Diarrhea Shell Fish Anaphylaxis 10/23/2011 documented as of this encounter (statuses as of 04/24/2019) Medications Medication Sig Dispensed Refills Start Date [...] Chronic DAILY NEEDED right shoulder pain (pain). tramadol-acetaminophen Take 1 Tab by 12 Tab 0 12/08/2018 Active (ULTRACET) 37.5-325 MG mouth EVERY Oral Tab TWELVE HOURS NEEDED (pain). Max Daily Amount: 2 Tabs. lisinopril (PRINIVIL, TAKE 1 TABLET BY 90 Tab 3 03/01/2019 Active ZESTRIL) 20 MG Oral MOUTH EVERY DAY TabIndications: Essential hypertension escitalopram (LEXAPRO) Take 1 Tab by 90 Tab 0 03/03/2019 Active 20 MG Oral mouth DAILY. TabIndications: Other depression cyclobenzaprine Take 1 Tab by 30 Tab 0 04/24/2019 Active (FLEXERIL) 10 MG Oral mouth EVERY TabIndications: Neck BEDTIME NEEDED strain, initial (muscle strain). encounter, Chronic right shoulder pain etodolac (LODINE) 400 Take 400 mg by 60 Tab 0 04/24/2019 Active MG Oral TabIndications: mouth EVERY Neck strain, initial TWELVE HOURS encounter, Chronic NEEDED (pain). right shoulder pain documented as of this encounter (statuses as of 04/24/2019) Active Problems Problem Noted Date Cerebrovascular accident [...] as of this encounter (statuses as of 04/24/2019) Social History Tobacco Use Types Packs/Day Years Used Date Never Smoker Smokeless Tobacco: Never Used Alcohol Use Drinks/Week oz/Week Comments Yes 1 Glasses of wine 1.0 RARELY Sex Assigned at Date Recorded Not on file documented as of this encounter Last Filed Vital Signs Vital Sign Reading Time Taken Comments Blood Pressure 134/70 04/24/2019 3:25 PM EST Pulse 88 04/24/2019 3:25 PM EST Temperature - - Respiratory Rate - - Oxygen Saturation 97% 04/24/2019 3:25 PM EST Inhaled Oxygen Concentration - - Weight - - Height 172.7 cm (5' 8") 04/24/2019 3:25 PM EST Body Mass Index - - documented in this encounter Patient Instructions Patient InstructionsKatya Suarez FNP - 04/24/2019 3:20 PM ESTSchedule labs prior to follow up with Dr Renner on 05/15/2019 Heat or ice to painful area as needed Medication as directed Consider Chiropractic or massage if pain persists documented in this encounter Progress Notes Katya Suarez FNP - 04/24/2019 3:20 PM EST PATIENT: Gricelda Alvares : 1970 DATE OF SERVICE: 04/24/2019 CHIEF COMPLAINT: Chief Complaint Patient presents with ? Neck Pain x2 weeks, fell on the ice ? Shoulder Pain right shoulder pain Subjective HISTORY OF PRESENT ILLNESS: Gricelda Alvares is a 48-y.o. female. HPI Fell 2 weeks ago on ice while walking dog. Pain right shoulder and neck started a few hours later - using Ibuprofen, heat/ice and topical Voltaren gel. Pain not going away. No LOC Past Medical History: Diagnosis Date ? Anxiety [...] ? escitalopram (LEXAPRO) 20 MG Oral Tab Take 1 Tab by mouth DAILY. ? etodolac (LODINE) 400 MG Oral Tab Take 400 mg by mouth EVERY TWELVE HOURS NEEDED (pain). ? Glucose Blood In Vitro Strip 1 Strip by In Vitro route DAILY. Dx E11.9 one touch ultra ? lisinopril (PRINIVIL, ZESTRIL) 20 MG Oral Tab TAKE 1 TABLET BY MOUTH EVERY DAY ? Multiple Vitamin (MULTI VITAMIN DAILY PO) Take by mouth DAILY. ? tramadol-acetaminophen (ULTRACET) 37.5-325 MG Oral Tab Take 1 Tab by mouth EVERY TWELVE HOURS NEEDED (pain). Max Daily Amount: 2 Tabs. No current facility-administered medications for this visit. [...] file Gets together: Not on file Attends tenriism service: Not on file Active member of [...] ? 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 Musculoskeletal: Positive for myalgias and neck pain. Neurological: Negative for dizziness, weakness and headaches. Objective PHYSICAL EXAM: VITALS: BP 134/70 | Pulse 88 | Ht 5' 8" (1.727 m) | SpO2 97% | BMI 34.21 kg /m Body mass index is 34.21 kg/m. Physical Exam Vitals signs and nursing note reviewed. Constitutional: General: She is not in acute distress. Appearance: She is obese. She is not ill-appearing. HENT: Head: Normocephalic and atraumatic. Neck: Musculoskeletal: Decreased range of motion. Muscular tenderness present. No neck rigidity or crepitus. Musculoskeletal: Right shoulder: She exhibits decreased range of motion, tenderness and spasm. Cervical back: She exhibits decreased range of motion, tenderness and spasm. Arms: Skin: General: Skin is warm and dry. Coloration: Skin is not ashen or pale. Findings: No ecchymosis, erythema or rash. Neurological: Mental Status: She is alert and oriented to person, place, and time. Cranial Nerves: Cranial nerves are intact. Psychiatric: Behavior: Behavior is cooperative. ASSESSMENT / IMPRESSION: ICD-9-CM ICD-10-CM 1. Fall due to slipping on ice or snow, initial encounter E885.9 W00.9XXA 2. Neck strain, initial encounter 847.0 S16.1XXA cyclobenzaprine (FLEXERIL) 10 MG Oral Tab etodolac (LODINE) 400 MG Oral Tab 3. Chronic right shoulder pain 719.41 M25.511 cyclobenzaprine (FLEXERIL) 10 MG Oral Tab 338.29 G89.29 etodolac (LODINE) 400 MG Oral Tab Plan Schedule labs prior to follow up with Dr Renner on 05/15/2019 Heat or ice to painful area as needed Medication as directed Consider Chiropractic or massage if pain persists Author: ROCIO Dias 04/24/2019 15:54 documented in this encounter Plan of Treatment Date Type Specialty Care Team Description 05/15/2019 Office Visit Internal Medicine Trudy Renner MD [address] [place] [address] [phone] Health Maintenance Due Date Last Done Comments PNEUMOCOCCAL 0-64 YRS (1 of 11/18/1975 1 - PPSV23) DTaP/Tdap/Td Vaccines ( - 1980 Tdap) FOOT EXAM 11/18/1987 PAP [...] Type Problems Progress Blood Pressure Blood Pressure 134/70 No Jud, < 140/90 (04/24/2019 MD Trudy 3:25 PM EST) Note: This is an individualized treatment (blood [...] loss vs. 18 mo max Lifestyle 5 (12/08/2018 9:29 AM EDT) No Trudy Renner MD (lbs) >= [...] filedocumented in this encounter Visit Diagnoses Diagnosis Fall due to slipping on ice or snow, initial encounter Neck strain, initial encounter Chronic right shoulder pain Pain in joint, shoulder region documented in this encounter Insurance Payer Benefit Plan / Subscriber ID Effective Dates Phone Address Type Group [employer] [id number] 2014-Present [employer] documented as of this encounter
--- NOTE | 2019-06-16 12:55 | ED ---
Neurological HPI - HPI Summary HPI Summary: This patient is a 48 y/o female presenting to [facility] c/o numbness and tingling on right hand and foot since 2 days ago after a Cortisone shot. Patient states on Wednesday (06/13/19) she received a cortisone shot on the palmar aspect of her right hand. She notes the next morning on Wednesday (06/14/19) patient began to have numbness and tingling on her right hand. Patient states since then numbness and tingling has increased up to her mid right arm, right foot, and right buttock cheek. Patient describes numbness and tingling as "pretty constant " but it waxes and wanes. Denies headache, dizziness, weakness, change in vision , trouble speaking, acting abnormal. Denies taking any anticoagulants. She only takes aspirin. PMHx: HTN, borderline DM, CVA October 2017. Patient reports during her stroke she had symptoms of slurred speech, was extremely tired, and nothing was making sense. She notes she waited 4 days with these symptoms before she went to the hospital. Patient reports she does not check her sugars every day. PSHx: gastric bypass, internal hernia, cholecystecomy, left shoulder surgery x5 , right shoulder surgery x1. Denies tobacco or drug use, but admits to rare alcohol use. Allergies to Metformin, Tramadol. Medications reviewed. Allergies noted. - History of Current Complaint Chief Complaint: EDNeurologicalDeficit Stated Complaint: RIGHT SIDE NUMBNESS PER PT Time Seen by Provider: 06/16/19 12:42 Hx Obtained From: Patient Hx Last Menstrual Period: 02/10/19 Onset/Duration: Started days ago, Still Present Timing: Constant Current Severity: Moderate Neurological Deficit Location: RUE, RLE Pain Intensity: 0 Pain Scale Used: 0-10 Numeric Character: Numbness/Tingling - right side Aggravating: Nothing Alleviating: Nothing Associated Signs and Symptoms: Positive: Numbness. Negative: Visual Changes, Headache, Weakness, Loss of Consciousness, Dizziness, Impaired Speech, Fever - Allergy/Home Medications Allergies/Adverse Reactions: Allergies Allergy/AdvReac Type Severity Reaction Status Date / Time shellfish derived Allergy Severe Anaphylatic Verified 06/16/19 12:00 Shock metformin AdvReac Severe Diarrhea Verified 06/16/19 12:00 Home Medications: Home Medications Cholecalciferol TAB* [Vitamin D TAB*] 2,000 unit PO QAM 02/06/14 [History Confirmed 03/15/19] Cyanocobalamin TAB* [Vitamin B12 TAB*] 500 mcg PO QAM 02/06/14 [History Confirmed 03/15/19] Escitalopram * [Lexapro 10 mg (NF)] 20 mg PO QAM 02/06/14 [History Confirmed ] Lisinopril TAB* [Prinivil TAB 10 MG*] 20 mg PO QAM 02/06/14 [History Confirmed 03/15/19] Multivitamin [Multiple Vitamins] 2 tab PO QAM 02/06/14 [History Confirmed ] Dulaglutide (NF) [Trulicity (NF)] 0.75 mg SC WEEKLY 07/29/16 [History Confirmed 03/15/19] Calcium Carbonate [Calcium] 1,000 mg PO QAM 05/06/17 [History Confirmed 03/15/19 ] Aspirin 81 mg CHEW TAB* 81 mg PO QAM 05/23/18 [History Confirmed 03/15/19] Albuterol HFA INHALER* [Ventolin HFA Inhaler*] 2 puff INH Q4H PRN #1 mdi [Rx] Spacer/Holding Chamber (NF) [Easivent CHAMBER (NF)] 1 applic INH Q4HR PRN #1 device 03/15/19 [Rx] PMH/Surg Hx/FS Hx/Imm Hx Endocrine/Hematology History: Reports: Hx Diabetes - Trulicity, Hx Anemia - controled Denies: Hx Thyroid Disease Cardiovascular History: Reports: Hx Hypertension, Other Cardiovascular Problems/ Disorders - CVA 10/2017 AFFECTED LEFT SIDE. Denies: Hx Congestive Heart Failure, Hx Pacemaker/ICD Respiratory History: Denies: Hx Asthma, Hx Chronic Obstructive Pulmonary Disease (COPD), Other Respiratory Problems/Disorders GI History: Reports: Other GI Disorders - Pancreatitis 2006, Gastric Bypass 2007 , Floating hernia repair 2009 Denies: Hx Ulcer History: Denies: Hx Renal Disease, Other Problems/Disorders Musculoskeletal History: Reports: Hx Arthritis - Hands and shoulders, Hx Bursitis - Left shoulder, Other Musculoskeletal History - R 5th finger trigger finger&Tendon sheath mass, Pin right 5th finger Sensory History: Reports: Hx Contacts or Glasses - Glasses and contacts-will wear glasses day of surgery Denies: Hx Cataracts Opthamlomology History: Reports: Hx Contacts or Glasses - Glasses and contacts- will wear glasses day of surgery Denies: Hx Cataracts Neurological History: Reports: Hx CVA - October 2017, Hx Migraine - IN THE PAST- been a long time since last one Psychiatric History: Reports: Hx Anxiety Denies: Hx Panic Disorder - Cancer History Hx Chemotherapy: No - Surgical History Surgical History: Yes Surgery Procedure, Year, and Place: Right Index Finger 09/07/13,[facility]. 06/03 R HAND , 5TH DIGIT, W/ PIN;. GANGLION CYST - REMOVED FROM MIDDLE FINGER 2009 and 2010. LEFT SHOULDER BONE SPUR , 10/2012, , [facility] DISLOCATED-SEPERATED FROM A FALL. 12/20/09 [facility],. 04/2017-LEFT SHOULDER SURGERY. 12/30 GASTRIC BYPASS,. Gall bladder removed 2015. 11/22 & 11-24 GANGLION CYSTS,. BILATERAL CARPAL TUNNEL, [facility], 2012. LEFT 5th finger trigger release 08/2014 Hx Anesthesia Reactions: Yes - Severe nausea with dry heaving after anesthesia- scopalamine patch works - Immunization History Date of Tetanus Vaccine: UTD Date of Influenza Vaccine: 2013 Infectious Disease History: No Infectious Disease History: Denies: Hx Clostridium Difficile, Hx Hepatitis, Hx Human Immunodeficiency Virus (HIV), Hx of Known/Suspected MRSA, Hx Shingles, Hx Tuberculosis, Hx Known/ Suspected VRE, Hx Known/Suspected VRSA, History Other Infectious Disease, Traveled Outside the [place] in Last 30 Days - Family History Known Family History: Positive: Cardiac Disease, Hypertension, Diabetes, Respiratory Disease - in father - Social History Alcohol Use: Rare Alcohol Amount: 2-3 TIMES A YEAR Hx Substance Use: No Substance Use Type: Reports: None Hx Tobacco Use: No Smoking Status (MU): Never Smoked Tobacco Have You Smoked in the Last Year: No Review of Systems Negative: Fever Negative: Other - NEGATIVE: change in vision Neurological/Mental Status: Other - NEGATIVE: difficulty speaking, acting abnormal, dizziness Positive: Paresthesia, Numbness. Negative: Headache, Weakness All Other Systems Reviewed And Are Negative: Yes Physical Exam - Summary Physical Exam Summary: Constitutional: Well-developed, Well-nourished, Alert. (-) Distressed Skin: Warm, Dry HENT: Normocephalic; Atraumatic Eyes: Conjunctiva normal Neck: Musculoskeletal ROM normal neck. (-) JVD, (-) Stridor, (-) Tracheal deviation Cardio: Rhythm regular, rate normal, Heart sounds normal; Intact distal pulses. Radial pulses are 2+ and symmetric. (-) Murmur Pulmonary/Chest wall: Effort normal. (-) Respiratory distress, (-) Wheezes, (-) Rales Abd: Soft. (-) Tenderness, (-) Distension, (-) Guarding, (-) Rebound Musculoskeletal: (-) Edema Lymph: (-) Cervical adenopathy Neuro: Alert, Oriented x3, Strength normal, Cranial nerves II-XII are grossly intact. (-) Dysmetria, (-) Nystagmus, (-) Ataxia by finger to nose testing. Sensation decreased on the right thumb only. Psych: Mood and affect Normal Triage Information Reviewed: Yes Vital Signs On Initial Exam: Initial Vitals Temp Pulse Resp BP Pulse Ox 98.4 F 90 18 172/90 100 06/16/19 11:59 06/16/19 11:59 06/16/19 11:59 06/16/19 11:59 06/16/19 11:59 Vital Signs Reviewed: Yes Procedures - Sedation Patient Received Moderate/Deep Sedation with Procedure: No Diagnostics - Vital Signs Vital Signs Temp Pulse Resp BP Pulse Ox 06/16/19 11:59 98.4 F 90 18 172/90 100 - Laboratory Lab Statement: Any lab studies that have been ordered have been reviewed, and results considered in the medical decision making process. NIH Scale - NIH Scale Level of Consciousness: Alert/Keenly Responsive Ask Patient the Month and His/Her Age: Both Correct Ask Pt to Open/Close Eyes and Automobile Service Station Attendant/Release Non-Paretic Hand: Both Correctly Best Gaze (Only Horizontal Eye Movement): Normal Visual Field Testing: No Visual Loss Facial Paresis-Pt to Smile & Close Eyes or Grimace Symmetry: Normal/Symmetrical Motor Function - Right Arm: No Drift-Holds 10 Seconds Motor Function - Left Arm: No Drift-Holds 10 Seconds Motor Function - Right Leg: No Drift-Holds 10 Seconds Motor Function - Left Leg: No Drift-Holds 10 Seconds Limb Ataxia-Must be out of Proportion to Weakness Present: Absent Sensory (Use Pinprick to Test Arms/Legs/Trunk/Face): Normal Best Language (Describe Picture, Name Items): No Aphasia Dysarthria (Read Several Words): Normal Extinction and Inattention: No Abnormality Total Score: 0 Re-Evaluation - Re-Evaluation First Eval Re-Evaluation Time: 12:58 Comment: Blood glucose is 173. Course/Dx - Course Course Of Treatment: Patient is here subjective numbness in her right hand and forearm, right buttock, right foot. Patient has had symptoms for 48 hours and is not on any CVA treatment window. On examination here, patient's only objective finding is numbness in her right thumb which is where she had the injection. Patient has equal sensation overall she feels numbness. Patient has been a stroke scale of 0. Patient was offered blood work but declined. Patient had a normal glucose here. Patient will follow up as an outpatient. - Diagnoses Provider Diagnoses: Neuropathy, Diabetes - Critical Care Time Critical Care Statement: Critical care time is provided exclusive of any time spent performing procedures. Discharge ED - Sign-Out/Discharge Documenting (check all that apply): Patient Departure - Discharge home - Discharge Plan Condition: Stable Disposition: HOME Patient Education Materials: Type 2 Diabetes in Adults: New Diagnosis (ED), Peripheral Neuropathy (ED) Referrals: Trudy Renner MD [Primary Care Provider] - Additional Instructions: Please follow up with your primary care physician in 1-3 days. PLEASE RETURN TO EMERGENCY DEPARTMENT FOR ANY WORSENING NUMBNESS OR TINGLING, WEAKNESS, SLURRED SPEECH, CHANGE IN VISION, OR ANY OTHER CONCERNING SYMPTOMS. IF YOU HAVE THESE SYMPTOMS CALL 911, DO NOT WAIT TO COME IN. - Billing Disposition and Condition Condition: STABLE Disposition: Home - Attestation Statements Document Initiated by Carter: Yes Documenting Emilyibe: Natalie Ortega Provider For Whom Carter is Documenting (Include Credential): Lawrence Quevedo MD Scribe Attestation: Natalie House, scribed for Lawrence Quevedo MD on 06/16/19 at 1615. Scribe Documentation Reviewed: Yes Provider Attestation: The documentation as recorded by the Natalie downey accurately reflects the service I personally performed and the decisions made by me, Lawrence Quevedo MD Status of Scribe Document: Viewed
[2019-06-16 13:25] VITALS: BP 149/90
== END 2019-06-16 13:25 | disposition home or self-care (01) ==
LOC: ED 11:58
DX: E11.40 Type 2 diabetes mellitus with diabetic neuropathy, unspecified (principal); Z79.84 Long term (current) use of oral hypoglycemic drugs; I10 Essential (primary) hypertension; Z86.73 Personal history of transient ischemic attack (TIA), and cerebral infarction without residual deficits; Z79.82 Long term (current) use of aspirin; Z79.899 Other long term (current) drug therapy; Z88.8 Allergy status to other drugs, medicaments and biological substances; Z98.84 Bariatric surgery status
CPT/HCPCS: 99282